=== PATIENT | male | born 1955 | race Caucasian/White ===

== ENCOUNTER → 2018-10-11 | Outpatient (CLI) | payer BC ==
[~2018-10-11] MED LIST: ASA-CA CARB-MA325 MG PO; CIPRO500 MG PO; COREG CR10 MG PO; CRESTOR20 MG PO; DARVOCET-N 1001 EAC1 PO; ECOTRIN81 MG PO; GABAPENTIN300 MG PO; NIASPAN1000 MG PO; PLAVIX; RAMIPRIL5 MG PO; TYLENOL #4 PO; Z.0.HYDROCHLOROTHIA2 PO; Z.0.PLAVIX75 MG PO; Z.0.SIMVASTATIN20 MG PO; Z.0.SIMVASTATIN5 MG; Z.0.TOPROL XL25 MG PO; [UNRECOGNIZED DRUG - OTHER]; [UNRECOGNIZED DRUG - OTHER] PO
--- NOTE | 2018-10-11 10:52 | Diagnostic Imaging Report ---
MRI SPINE CERVICAL WO HISTORY: Neck, bilateral shoulder, posterior right arm pain COMPARISON: None. TECHNIQUE: Sagittal T1, sagittal T2, sagittal inversion recovery, axial T2, axial T2 GRE, and axial T1 weighted MR images of the cervical spine were obtained without intravenous contrast. DISCUSSION: Alignment: Normal lordosis. No scoliosis. Vertebrae: No definite evidence for fractures, infection, or neoplasm. Cervicomedullary junction: No abnormalities. Spinal cord: The ventral cord is mildly flattened by disc at C5-C6 and C6-C7. The cord is otherwise normal in signal and morphology from the foramen magnum through T2-T3. Soft tissues: No signal abnormalities. Mild to moderate multilevel disc degeneration is most prominent at C5-C6 and C6-C7. This is superimposed on a congenitally narrow cervical spinal canal. Mild atlantoaxial arthrosis is present as well. C2-C3: Patent canal and foramina. C3-C4: Mild canal stenosis due to posterior disc osteophyte complex and ligamentum flavum thickening. Mild right and moderate left foraminal stenoses due to uncovertebral and facet arthrosis. C4-C5: Mild canal stenosis due to posterior disc osteophyte complex and ligamentum flavum thickening. Moderate to severe right and mild left foraminal stenoses due to uncovertebral and facet arthrosis. C5-C6: Moderate canal stenosis due to posterior disc osteophyte complex and ligamentum flavum thickening. Moderate to severe bilateral foraminal stenoses due to uncovertebral and facet arthrosis. C6-C7: Mild canal stenosis due to posterior disc osteophyte complex and ligamentum flavum thickening. Mild right and moderate left foraminal stenoses due to uncovertebral and facet arthrosis. C7-T1: Patent canal and foramina. IMPRESSION: 1. Mild to moderate multilevel disc degeneration, most prominent at C5-C6 and C6-C7, superimposed on a congenitally narrow cervical spinal canal. 2. Multilevel congenital/degenerative canal stenoses - moderate at C5-C6. 3. Multilevel degenerative foraminal stenoses - moderate on the left at C3-C4; moderate to severe on the right at C4-C5; moderate to severe bilaterally at C5-C6; moderate on the left at C6-C7. Signed by: Dr. Lucien Roblero M.D. on 10/11/2018 10:48 AM
== END ==
LOC: MRI 09:29
PROVIDERS: ATTEND Family Medicine
DX: M50.00 Cervical disc disorder with myelopathy, unspecified cervical region (principal)
CPT/HCPCS: 72141

== ENCOUNTER 2018-11-02 08:23 | Observation (INO) | payer BC ==
[2018-10-31 13:35] LABS: BASOPHILS % 1.1 % (0.0-1.0); EOSINOPHILS # (AUTO) 0.1 (0.0-0.4); EOSINOPHILS % 2.8 % (0.0-6.0); HEMOGLOBIN 13.3 g/dL (14.0-18.0); LYMPHOCYTES # (AUTO) 1.3 (1.0-3.2); LYMPHOCYTES % 36.6 % (18.0-39.1); MEAN CORPUSCULAR HEMOGLOBIN 28.6 pg (28-32); MEAN CORPUSCULAR HGB CONC 33.3 g/dL (31-35); MONOCYTES # (AUTO) 0.3 (0.2-0.8); MONOCYTES % 8.5 % (4.4-11.3); NEUTROPHILS # (AUTO) 1.8 (2.1-6.9); NEUTROPHILS % 50.4 % (38.7-80.0); PLATELET COUNT 147 x10e3/uL (140-360); RED BLOOD COUNT 4.65 x10e6/uL (4.3-5.7); RED CELL DISTRIBUTION WIDTH 12.3 % (11.7-14.4)
[2018-10-31 13:52] LABS: ANION GAP 9.5 mmol/L (8-16); BLOOD UREA NITROGEN 22 mg/dL (7-26); BUN/CREATININE RATIO 24 (6-25); CALCIUM 9.6 mg/dL (8.4-10.2); CARBON DIOXIDE 28 mmol/L (22-29); CHLORIDE 101 mmol/L (98-107); CREATININE, SERUM 0.93 mg/dL (0.72-1.25); EST GLOMERULAR FILTRATION RATE > 60 ML/MIN (60-); GLUCOSE 152 mg/dL (74-118); POTASSIUM 3.5 mmol/L (3.5-5.1); SODIUM 135 mmol/L (136-145)
[2018-10-31 14:01] LABS: INR 0.88; PROTHROMBIN TIME 12.4 seconds (11.9-14.5)
--- NOTE | 2018-10-31 14:37 | Diagnostic Imaging Report ---
EXAMINATION: PA and lateral views of the chest. COMPARISON: None CLINICAL HISTORY: Preoperative evaluation, spine surgery DISCUSSION: Lines/tubes: None. Lungs: The lungs are well inflated and clear. No pneumonia or pulmonary edema. Pleura: No pleural effusion or pneumothorax. Heart and mediastinum: The cardiomediastinal silhouette is normal. Bones and soft tissues: No acute bony abnormalities. IMPRESSION: No acute cardiopulmonary abnormalities. Signed by: Dr. Guru Alvarado M.D. on 10/31/2018 2:34 PM
[~2018-11-02] VITALS: Ht 182.9 cm; Wt 127.9 kg
[~2018-11-02 08:23] MED LIST changes: +HYDROCHLOROTHIA25 MG PO; +PLAVIX75 MG PO; +TERAZOSIN HCL5 MG PO
--- OUTSIDE RECORDS SUMMARY | 2018-11-02 08:25 | XMS REPORT | Summary of Care ---
Author Author [facility] Orth[facility] Orthopedic Surgery [facility] Address [address], [address] [place] [address] Phone Care Team Providers Care Order Builder Loader Name Role Phone RITA TIRADO DO Unavailable Unavailable Unavailable Unavailable Functional Status Name Dates Details Functional status health issues are not documented Status: Name Dates Details Cognitive status health issues are not documented Status: Problems Name Dates Details Pain of left hip joint (719.45, M25.552) Status: Active Femoral acetabular impingement (719.85, M25.859) Status: Active Medications Name Dates Details Medications not documented Allergies and Adverse Reactions Name Dates Details No Known Drug Allergies (Allergy) Status: Active Past Medical History Name Dates Details History of arthritis (V13.4, Z87.39) Status: Resolved History of back pain (V13.59, Z87.39) Status: Resolved History of heart disease (V12.50, Z86.79) Status: Resolved History of hypertension (V12.59, Z86.79) Status: Resolved History of kidney stones (V13.01, Z87.442) Status: Resolved Procedures Procedure Dates Details Procedures not documented Immunization Name Dates Details Immunizations not documented Social History Name Dates Details Unknown if ever smoked Vital Signs Date Test Result Details No Known Vitals to report Results Date Description Value Details Results not documented Plan of Care Name Dates Details Planned Observations Planned Goals not documented Planned Encounters Appointment; SANTY ARGUELLES M.D. On: 02-Sep-2017 7:30 Instructions Name Dates Details Instructions not documented Encounters Appointment; DESHAUN PALMA M.D. Encounter Diagnosis: Problem not documented On: 23-Jun-2017 15:00 Appointment; SANTY ARGUELLES M.D. Encounter Diagnosis: Problem not documented On: 06-Jul-2017 8:15 Appointment; LINETTE KELLY M.D. Encounter Diagnosis: Problem not documented On: 06-Jul-2017 9:45
--- OUTSIDE RECORDS SUMMARY | 2018-11-02 08:25 | XMS REPORT ---
Author Author [facility] Address Unknown Phone Unavailable Care Team Providers Care Electrocardiograph Repairer Name Role Phone RICH SANDERS Unavailable Unavailable RITA TIRADO Unavailable Unavailable Problems This patient has no known problems. Allergies, Adverse Reactions, Alerts This patient has no known allergies or adverse reactions. Medications This patient has no known medications. Results Test Description Test Time Test Comments Text Results Atomic Results Result Comments CHEST 2 VIEWS 2018-10-31 14:33:00 [place] [address] Patient Name: CARLOS ARAUJO MR #: [id number] : 1955 Age/Sex: 62/M Req #: [id number] Adm Physician: Ordered by: RICH SANDERS MD Report #: [id number] Location: OR Room/Bed: Procedure: [id number] DX/CHEST 2 VIEWS Exam Date: Exam Time: REPORT STATUS: Signed EXAMINATION: PA and lateral views of the chest. COMPARISON: None CLINICAL HISTORY: Preoperative evaluation, spine surgery DISCUSSION: Lines/tubes: None. Lungs: The lungs are well inflated and clear. No pneumonia or pulmonary edema. Pleura: No pleural effusion or pneumothorax. Heart and mediastinum: The cardiomediastinal silhouette is normal. Bones and soft tissues: No acute bony abnormalities. IMPRESSION: No acute cardiopulmonary abnormalities. Signed by: Dr. Sri Sawyer M.D. on 10/31/2018 2:34 PM Dictated By: SRI SAWYER MD 143 Transcribed By: CALE on 10/31/181433 COPY TO: RICH SANDERS MD MRI SPINE CERVICAL WO 2018-10-11 10:39:00 [place] [address] Patient Name: CARLOS ARAUJO JR MR #: [id number] : 1955 Age/Sex: 62/M Req #: [id number] Adm Physician: Ordered by: RITA TIRADO DO Report #: [id number] Location: MRI Room/Bed: Procedure: [id number] MRI/MRI SPINE CERVICAL WO Exam Date: Exam Time: REPORT STATUS: Signed MRI SPINE CERVICAL WO HISTORY: Neck, bilateral shoulder, po sterior right arm pain COMPARISON: None. TECHNIQUE: Sagittal T1, sagittal T2, sagittal inversion recovery, axial T2, axial T2 GRE, and axial T1 weighted MR images of the cervical spine were obtained without intravenous contrast. DISCUSSION: Alignment: Normal lordosis. No scoliosis. Vertebrae: No definite evidence for fractures, infection, or neoplasm. Cervicomedullary junction: No abnormalities. Spinal cord: The ventral cord is mildly flattened by disc at C5-C6 and C6-C7. The cord is otherwise normal in signal and morphology from the foramen magnum through T2-T3. Soft tissues: No signal abnormalities. Mild to moderate multilevel disc degeneration is most prominent at C5-C6 and C6-C7. This is superimposed on a congenitally narrow cervical spinal canal. Mild atlantoaxial arthrosis is present as well. C2-C3: Patent canal and foramina. C3-C4: Mild canal stenosis due to posterior disc osteophyte complex and ligamentum flavum thickening. Mild right and moderate left foraminal stenoses due to uncovertebral and facet arthrosis. C4-C5: Mild canal stenosis due to posterior disc osteophyte complex and ligamentum flavum thickening. Moderate to severe right and mild left foraminal stenoses due to uncovertebral and facet arthrosis. C5-C6: Moderate canal stenosis due to posterior disc osteophyte complex and ligamentum flavum thick ening. Moderate to severe bilateral foraminal stenoses due to uncovertebral and facet arthrosis. C6-C7: Mild canal stenosis due to posterior disc osteophyte complex and ligamentum flavum thickening. Mild right and moderate left foraminal stenoses due to uncovertebral and facet arthrosis. C7-T1: Patent canal and foramina. IMPRESSION: 1. Mild to moderate multilevel disc degeneration, most prominent at C5-C6 and C6-C7, superimposed on a congenitally narrow cervical spinal canal. 2. Multilevel congenital/degenerative canal stenoses - moderate at C5-C6. 3. Multilevel degenerative foraminal stenoses - moderate on the left at C3-C4; moderate to severe on the right at C4-C5; moderate to severe bilaterally at C5-C6; moderate on the left at C6-C7. Signed by: Dr. Lucien Roblero M.D. on 10/11/2018 10:48 AM Dictated By: LUCIEN ROBLERO MD 1048 Transcribed By: CALE on 10/11/18 1048 COPY TO: RITA TIRADO DO RENAL RETROPERITONEAL COMP [place] [address] Patient Name: CARLOS ARAUJO MR #: [id number] : 1955 Age/Sex: 61/M Req #: [id number] Adm Physician: Ordered by: RITA TIRADO DO Report #: [id number] Location: MRI Room/Bed: Procedure: [id number] US/US RENAL RETROPERITONEAL COMP Exam Date: 05/19/17 Exam Time: 1709 REPORT STATUS: Signed Renal ultrasound dated 05/19/2017. History: Hematuria with flank pain Discussion: Transverse and longitudinal images of the kidneys were obtained demonstrating normal renal sizes and echogenicities. There is no evidence of hydronephrosis, mass, or renal calculus. The right kidney measures 12.6 cm and the left kidney measures 13.7 cm in length. Left lower pole hyperechoic stone measuring 8 mm. The urinary bladder is unremarkable. There is no evidence of free fluid. Prostate measures 4.4 x 3.6 x 3.8 cm. IMPRESSION: Left lower pole renal stone. Enlargement of the prostate. Signed by: Dr. Jus Negron DO on 05/19/2017 7:39 PM Dictated By: JUS NEGRON DO 38 Transcribed By: CALE on 05/19/171938 COPY TO: RITA SANCHES DO MRI HIP LEFT WO [place] [address] Patient Name: CARLOS ARAUJO MR #: [id number] : 1955 Age/Sex: 61/M Req #: [id number] Adm Physician: Ordered by: RITA TIRADO DO Report #: [id number] Location: MRI Room/Bed: Procedure: [id number] MRI/MRI HIP LEFT WO Exam Date: 05/19/17 Exam Time: 1530 REPORT STATUS: Signed TECHNIQUE: Magnetic resonance imaging of the LEFT HIP was performed WITHOUT injected contrast. HISTORY: Sprain, pain, query bursitis COMPARISON: None available. FINDINGS: Bone: The bone marrow signal is heterogeneous, compatible with red marrow conversion, no specific evidence of a focal bone marrow replacing abnormality. No osteonecrosis or acute fracture. Subcortical cystic changes of the acetabular rim adjacent to the labral tearing. Femoroacetabular Joint: Acetabular labrum: Complex degenerative tearing of the superior labrum. Articular Cartilage: Low-grade erosion of the weightbearing cartilage. Muscle and tendons: Minimal gluteus medius and minimus enthesopathy; however, on the large [id number] images this is a fairly symmetric finding. Soft tissues: Enlargement of the prostate, 5.2 cm (ML) IMPRESSION: 1. Degenerative changes of the left hip, most notably degenerative tearing of the acetabular labrum. 2. Minimal symmetric gluteus medius and minimus enthesopathy, without associated greater trochanteric bursitis. Signed by: Dr. Betsy Dominguez M.D. on 05/19/2017 5:12 PM Dictated By: BETSY DOMINGUEZ DO 11 Transcribed By: CALE on 05/19/171711 COPY TO: RITA TIRADO DO
[2018-11-02] MEDS ORDERED: BACITRACIN 50,000 UNIT VIAL ONE ×2 (08:37→11:02)
[2018-11-02] MEDS ORDERED: GELATIN SPONGE 12-7MM ONE ×2 (08:37→11:02)
[2018-11-02] MEDS ORDERED: THROMBIN FOR SOLN 5,000 UNIT VIAL ONE ×2 (08:37→11:01)
[2018-11-02] MEDS ORDERED: BUPIVACAINE 0.5%/EPI 30 ML SDV INJ ONE ×2 (08:37→11:01)
[2018-11-02] MEDS ORDERED: CEFAZOLIN SOD 2 GM/D5W 50ML 50 ML IV ONE (09:46)
[2018-11-02] MEDS ORDERED: MAGNESIUM/ALUMINUM/SIMETHICONE 30 ML UDC PO PRN (13:15)
[2018-11-02] MEDS ORDERED: MORPHINE SULFATE 5 MG/ML VIAL IM PRN (13:15)
[2018-11-02] MEDS ORDERED: HYDROMORPHONE 2MG/ML 2 MG/ML ML IV PRN (13:15)
[2018-11-02] MEDS ORDERED: ACETAMINOPHEN 325 MG TAB PO PRN (13:15)
[2018-11-02] MEDS ORDERED: PROMETHAZINE HCL (IM) 25 MG/ML VIAL IM PRN (13:15)
[2018-11-02] MEDS ORDERED: ONDANSETRON HCL INJ 2MG/ML 2ML 2 MG/ML VIAL IV PRN (13:15)
[2018-11-02] MEDS: LACTATED RINGER'S 1,000 ML IV SCH ×2 (15:15→21:11)
[2018-11-02] MEDS: OXYCODONE/ACETAMINOPHEN 5-325 1 EACH TABLET PO PRN ×2 (15:21→20:30)
[2018-11-02] MEDS: CARISOPRODOL 350 MG TAB PO PRN ×2 (15:21→20:30)
[2018-11-02 15:25] VITALS: BP 139/68
[2018-11-02 15:29] VITALS: BP 139/68
[2018-11-02 15:59] VITALS: BP 139/68
[2018-11-02] MEDS: RAMIPRIL 5 MG CAP PO SCH (16:37)
[2018-11-02] MEDS: CARVEDILOL 3.125 MG TAB PO SCH (16:38)
[2018-11-02] MEDS: TERAZOSIN HCL 5 MG CAP PO SCH (16:38)
[2018-11-02] MEDS ORDERED: CARVEDILOL 10 MG CAPCR PO SCH (17:00)
[2018-11-02] MEDS ORDERED: PROPOFOL IV EMULSION 10 MG/ML 20 ML VIAL ONE (17:36)
[2018-11-02] MEDS ORDERED: NEOSTIGMINE 5 MG/5ML SYR ONE (17:36)
[2018-11-02] MEDS ORDERED: DEXAMETHASONE SOD PHOS INJ 4 MG/ML VIAL ONE (17:36)
[2018-11-02] MEDS ORDERED: LIDOCAINE HCL 2% LOCAL INJ 5 ML SDV VIAL INJ ONE (17:36)
[2018-11-02] MEDS ORDERED: ROCURONIUM BROMIDE 10 MG/ML 5ML VIAL ONE (17:36)
[2018-11-02] MEDS ORDERED: PHENYLEPHRINE HCL 1% 10 MG/ML VIAL ONE (17:36)
[2018-11-02] MEDS ORDERED: SEVOFLURANE INHAL SOLN 250 ML PEN BTL ONE (17:36)
[2018-11-02] MEDS ORDERED: ONDANSETRON HCL INJ 2MG/ML 2ML 2 MG/ML VIAL ONE (17:36)
[2018-11-02] MEDS ORDERED: GLYCOPYRROLATE INJ 1MG/ 5 ML SYR ONE (17:36)
[2018-11-02] MEDS ORDERED: EPHEDRINE SULFATE INJ 50 MG/10 ML SYR ONE (17:36)
[2018-11-02] MEDS ORDERED: FENTANYL CITRATE/PF 100MCG/2 ML INJ ONE (18:04)
[2018-11-02] MEDS ORDERED: MIDAZOLAM HCL 2 MG/2 ML VIAL ONE (18:04)
--- NOTE | 2018-11-02 19:37 | Operative Report ---
DATE OF PROCEDURE: 11/02/2018 SURGEON: iGl Delgado MD PREOPERATIVE DIAGNOSIS: C5-6 spondylosis and femoral stenosis with radiculopathy, M50.122. POSTOPERATIVE DIAGNOSIS: C5-6 spondylosis and femoral stenosis with radiculopathy, M50.122. PROCEDURE PERFORMED: 1. C5-6 anterior cervical discectomy and microsurgical osteophyte resection and allograft fusion, 30232. 2. Preparation of MTF corticocancellous allograft, 64290. 3. C5-6 anterior cervical plating with Synthes ZPN plate, 24047. ANESTHESIA: General. INDICATIONS: The patient is a 62-year-old man who presents with C5-6 spondylosis and femoral stenosis with bilateral radicular symptoms worse on the left side. He was taken to the operating room for anterior cervical decompression and fusion. PROCEDURE IN DETAIL: After induction of general anesthesia, the patient was placed on the operating table in supine position. The right side of the neck was prepped and draped in sterile fashion. A fluoroscopic C-arm was positioned in cross-table lateral orientation. A transverse incision was created on the right side of the neck superimposed on the C5-6 disk space as determined by fluoroscopy. The platysma was divided inline with the incision. A subplatysmal dissection was carried out and avascular plane of dissection was developed medially in sternocleidomastoid muscle and was followed medial to the carotid sheath to the anterior border of the cervical spine. The deep cervical fascia was opened. The esophagus was retracted to the left. The attachments of longus colli muscles to the anterolateral aspects of vertebral bodies of C5 and C6 were divided. The anterior longitudinal ligament was resected. Lamona posts were inserted into C5 and C6. The Lamona distractor was used to distract disk space. The anterior annulus of the disk was incised with #11 blade and the contents of disk were thoroughly evacuated with angled curettes and pituitary rongeurs. The posterior osteophytes were meticulously drilled with a 2 mm cutting amanda on a high speed drill until they were completely removed. The posterior annulus of the disk, herniated disk material, and the posterior longitudinal ligament were resected [id number] until the dura was fully exposed and decompressed and medial aspects of the uncinate processes were resected bilaterally to further expose any compressed origins of the corresponding nerve roots with particular attention given on the left side. After satisfactory decompression had been achieved, the endplates were prepared for fusion. A piece of MTF corticocancellous allograft measuring 8 mm in thickness was selected and loaded on the corresponding Synthes ZPN plate. The contrast was inserted into the C5-6 disk space under distraction and fluoroscopic guidance and tamped in place until the anterior margin of the plate was flushed with anterior margin of vertebral bodies. The plate was then screwed to the end plate of C5 and C6 with 2 pairs of 16 mm screws. All screws were locked. An excellent construct was obtained. The wound was copiously irrigated with bacitracin solution. Meticulous hemostasis was secured. The traction was removed. The platysma was closed with 3-0 Vicryl sutures. The skin was closed with 4-0 Monocryl sutures in subcuticular fashion. Steri-strips and dressing were applied. The patient was awakened, extubated, and taken to Postanesthesia Care Unit in stable condition. No intraoperative complications were encountered. ESTIMATED BLOOD LOSS: 10 cc. Gil Delgado MD PP/ROWAN /[id number]
[2018-11-02] MEDS: CEFAZOLIN SOD 1 GM/NS 50ML 50 ML IV SCH (20:06)
[2018-11-02 20:09] VITALS: BP 149/70
[2018-11-02] MEDS ORDERED: NON-FORMULARY MEDICATION (Rosuvastatin Calcium (Crestor) 40 MG) PO SCH (21:00)
[2018-11-02] MEDS ORDERED: ZOLPIDEM TARTRATE 5 MG TAB PO PRN (21:00)
[2018-11-02] MEDS ORDERED: CRESTOR 10MG PO SCH (21:00)
[2018-11-03 00:34] VITALS: BP 109/55
[2018-11-03] MEDS: OXYCODONE/ACETAMINOPHEN 5-325 1 EACH TABLET PO PRN ×3 (01:25→12:40)
[2018-11-03] MEDS: CARISOPRODOL 350 MG TAB PO PRN ×3 (01:25→12:40)
[2018-11-03 04:00] VITALS: BP 121/57
[2018-11-03] MEDS: CEFAZOLIN SOD 1 GM/NS 50ML 50 ML IV SCH ×2 (04:20→11:27)
[2018-11-03] MEDS: LACTATED RINGER'S 1,000 ML IV SCH (05:35)
--- NOTE | 2018-11-03 08:11 | Diagnostic Imaging Report ---
Cervical spine radiographs-2 views Indication: Status post cervical fusion. Comparison: MRI cervical spine 10/11/2018. Findings: Cervical vertebral bodies can be visualized to the upper aspect of C7. The C7 vertebral body is partially obscured by the overlying shoulder. The patient is status post anterior fusion of C5 and C6 with a plate and bilateral screw construct as well as an intervertebral spacer. No evidence of acute fracture or bony malalignment. Mild prevertebral soft tissue edema and air likely reflects recent postoperative state. Mild degenerative disc and facet degenerative changes. Partially seen upper thoracic midline sternal wires and adjacent left-sided clips. IMPRESSION: Postoperative changes status post anterior fusion of C5-C6 as described above. Signed by: Dr. Darya Brizuela MD on 11/03/2018 8:08 AM
[2018-11-03 08:15] VITALS: BP 125/63
[2018-11-03] MEDS: RAMIPRIL 5 MG CAP PO SCH (09:00)
[2018-11-03] MEDS ORDERED: HYDROCHLOROTHIAZIDE 25 MG TAB PO SCH (09:00)
[2018-11-03] MEDS: TERAZOSIN HCL 5 MG CAP PO SCH (09:00)
[2018-11-03] MEDS: CARVEDILOL 3.125 MG TAB PO SCH (09:00)
[2018-11-03 09:22] VITALS: BP 125/63
[2018-11-03 12:37] VITALS: BP 146/67
== END 2018-11-03 13:07 | disposition home or self-care (01) ==
LOC: OR 08:23 → PACU V 13:09 → MED/SURG 14:09
PROVIDERS: ADMIT Neurological Surgery; ATTEND Neurological Surgery
DX: M50.122 Cervical disc disorder at C5-C6 level with radiculopathy (principal); I25.10 Atherosclerotic heart disease of native coronary artery without angina pectoris; I10 Essential (primary) hypertension; E78.5 Hyperlipidemia, unspecified; Z95.1 Presence of aortocoronary bypass graft
CPT/HCPCS: 20931; 22551; 22845; 36415; 71046; 72040; 77003; 80048; 85025; 85610; 85730; 86850; 86900; 88304; 88311; 93005; G0378 ×2; J0690 ×3; J1100; J2001; J2250; J2370; J2405; J2704; J3490; J7121

== ENCOUNTER 2019-04-24 13:59 | Inpatient (IN) | payer BC ==
[~2019-04-24] VITALS: Ht 182.9 cm; Wt 124.8 kg
[2019-04-24 15:35] LABS: BASOPHILS % 0.3 % (0.0-1.0); HEMATOCRIT 35.2 % (38.2-49.6); HEMOGLOBIN 12.3 g/dL (14.0-18.0); LYMPHOCYTES # (AUTO) 0.6 (1.0-3.2); LYMPHOCYTES % 8.7 % (18.0-39.1); MEAN CORPUSCULAR HEMOGLOBIN 29.1 pg (28-32); MEAN CORPUSCULAR HGB CONC 34.9 g/dL (31-35); MEAN CORPUSCULAR VOLUME 83.2 fL (81-99); MONOCYTES # (AUTO) 0.7 (0.2-0.8); MONOCYTES % 10.3 % (4.4-11.3); NEUTROPHILS # (AUTO) 5.7 (2.1-6.9); NEUTROPHILS % 80.3 % (38.7-80.0); PLATELET COUNT 173 x10e3/uL (140-360); RED BLOOD COUNT 4.23 x10e6/uL (4.3-5.7); RED CELL DISTRIBUTION WIDTH 12.9 % (11.7-14.4)
[2019-04-24 15:48] LABS: INR 0.96; PROTHROMBIN TIME 13.3 seconds (11.9-14.5)
[2019-04-24 15:58] LABS: ALANINE AMINOTRANSFERASE 23 IU/L (0-55); ALBUMIN 3.3 g/dL (3.5-5.0); ALBUMIN/GLOBULIN RATIO 0.8 (0.8-2.0); ALKALINE PHOSPHATASE 124 IU/L (40-150); ANION GAP 15.7 mmol/L (8-16); BLOOD UREA NITROGEN 24 mg/dL (7-26); BUN/CREATININE RATIO 18 (6-25); CALCIUM 10.2 mg/dL (8.4-10.2); CARBON DIOXIDE 26 mmol/L (22-29); CHLORIDE 95 mmol/L (98-107); CREATINE KINASE 190 IU/L (30-200); CREATININE, SERUM 1.31 mg/dL (0.72-1.25); EST GLOMERULAR FILTRATION RATE 55 ML/MIN (60-); GLUCOSE 135 mg/dL (74-118); SODIUM 134 mmol/L (136-145)
--- OUTSIDE RECORDS SUMMARY | 2019-04-24 16:04 | XMS REPORT | Summary of Care ---
Author Author [facility] Organization [facility] Address Unknown Phone Unavailable Encounter HANK Avitia([place]) [id number] Date(s): 03/06/19 - 03/07/19 [facility] [address] [place] [phone] Discharge Disposition: Home or Self Care Attending Physician: Saleem Kohler MD Admitting Physician: Saleem Kohler MD Referring Physician: Saleem Kohler MD Vital Signs 1 2 3 Most recent to oldest [Reference Range]: 182.88 cm (03/06/19 11:14 AM) Height 98.6 DegF (03/07/19 10:40 AM) 98.4 DegF (03/07/19 7:40 AM) 98.0 DegF (03/07/19 3:40 AM) Temperature Oral [96.4-99.1 DegF] 130/63 mmHg (03/07/19 10:40 AM) 143/86 mmHg *HI* (03/07/19 7:40 AM) 111/64 mmHg (03/07/19 3:40 AM) Blood Pressure [90-140/60-90 mmHg] 17 BRMIN (03/07/19 10:40 AM) 17 BRMIN (03/07/19 7:40 AM) 16 BRMIN (03/07/19 3:40 AM) Respiratory Rate [14-20 BRMIN] 69 bpm (03/07/19 10:40 AM) 62 bpm (03/07/19 7:40 AM) 61 bpm (03/07/19 3:40 AM) Peripheral Pulse Rate [60-100 bpm] 128.4 kg (03/06/19 11:14 AM) Weight 38.39 m2 (03/06/19 11:14 AM) Body Mass Index Problem List Condition Effective Dates Status Health Status Informant Hyperlipidemia(Confi Active rmed) Hypertension(Confirm Active ed) Myocardial 2011 Active infarction(Confirmed ) Obstructive sleep Active apnea on CPAP(Confirmed) Osteoarthritis(Confi Active rmed) Allergies, Adverse Reactions, Alerts No Known Allergies Medications acetaminophen 1,000 mg, 2 tab, Route: PO, Drug form: TAB, TID, Dosing Weight 128.4, kg, Start date: 03/06/19 17:00:00 CDT, Duration: 30 day, Stop date: 04/05/19 13:00:00 CDT, 0 Notes: Max acetaminophen 4000 mg/day (4 gm/day). (Same as: Tylenol Extra Streng ) Start Date: 03/06/19 Stop Date: 03/07/19 Status: Discontinued acetaminophen 1,000 mg, 2 tab, Route: PO, Drug form: TAB, ONCE, Dosing Weight 128.4, kg, Pre-o perative., Start date: 03/06/19 11:29:00 CDT, Stop date: 03/06/19 11:29:00 CDT, 0 Notes: Max acetaminophen 4000 mg/day (4 gm/day). (Same as: Tylenol Extra Stre) Start Date: 03/06/19 Stop Date: 03/06/19 Status: Completed acetaminophen 500 mg oral tablet 1,000 mg=2 tab, PO, TID, PRN Pain, X 15 day, # 90 tab, 1 Refill(s) Start Date: 03/07/19 Stop Date: 04/06/19 Status: Ordered ANES acetaminophen 1,000 mg, 2 tab, Route: PO, Drug form: TAB, ONCE, Dosing Weight 128.4, kg, PRN P ain Score 1-3, Start date: 03/06/19 14:53:00 CDT, 0 Notes: Max acetaminophen 4000 mg/day (4 gm/day). (Same as: Tylenol Extra Streng ) Start Date: 03/06/19 Stop Date: 03/06/19 Status: Discontinued ANES flumazenil 0.2 mg, 2 mL, Route: IVP, Drug form: INJ, PRN, Dosing Weight 128.4, kg, PRN Jarret odiazepine Reversal, Initial dose, Start date: 03/06/19 14:53:00 CDT, Duration: 30 day, Stop date: 04/05/19 14:52:00 CDT, 0 Notes: (Same as: Romazicon) Start Date: 03/06/19 Stop Date: 03/07/19 Status: Discontinued ANES hydrALAZINE 10 mg, 0.5 mL, Route: IVP, Drug form: INJ, Q20Min, Dosing Weight 128.4, kg, PRN Elevated BP, Start date: 03/06/19 14:53:00 CDT, Duration: 2 doses or times, Stop date: Limited # of times, 0 Notes: (Same as: Apresoline)Push over 5 minutes Start Date: 03/06/19 Stop Date: 03/07/19 Status: Discontinued ANES HYDROmorphone 0.5 mg, 0.25 mL, Route: IVP, Drug form: INJ, Q5Min, Dosing Weight 128.4, kg, PRN Pain Score 7-10, Start date: 03/06/19 14:53:00 CDT, Duration: 4 doses or times, Stop date: Limited # of times, 0 Notes: Same as Dilaudid Start Date: 03/06/19 Stop Date: 03/06/19 Status: Discontinued ANES labetalol 10 mg, 2 mL, Route: IVP, Drug form: INJ, Q5Min, Dosing Weight 128.4, kg, PRN Mindy vated BP, Start date: 03/06/19 14:53:00 CDT, Duration: 5 doses or times, Stop da te: Limited # of times, 0 Start Date: 03/06/19 Stop Date: 03/07/19 Status: Discontinued ANES meperidine 12.5 mg, 0.25 mL, Route: IVP, Drug form: INJ, Q30Min, Dosing Weight 128.4, kg, P RN Other -See Comment, For shivering, Start date: 03/06/19 14:53:00 CDT, Duratio n: 2 doses or times, Stop date: Limited # of times, 0 Notes: (Same as: Demerol) "Use Precaution in Elderly, Seizure disorders, and Re nal impairment" Start Date: 03/06/19 Stop Date: 03/07/19 Status: Discontinued ANES morphine Sulfate 2 mg, 0.2 mL, Route: IVP, Drug form: INJ, Q5Min, Dosing Weight 128.4, kg, PRN Pa in Score 4-6, Start date: 03/06/19 14:53:00 CDT, Duration: 5 doses or times, Sto p date: Limited # of times, 0 Notes: (Same as:MORPhine Sulfate) Start Date: 03/06/19 Stop Date: 03/06/19 Status: Discontinued ANES naloxone 0.4 mg, 1 mL, Route: IVP, Drug form: INJ, Q2MIN, Dosing Weight 128.4, kg, PRN Na rcotic Reversal, Start date: 03/06/19 14:53:00 CDT, Duration: 8 doses or times, Stop date: Limited # of times, 0 Notes: Same as Narcan Start Date: 03/06/19 Stop Date: 03/07/19 Status: Discontinued ANES ondansetron 4 mg, 2 mL, Route: IVP, Drug form: INJ, ONCE, Dosing Weight 128.4, kg, PRN Nause a & Vomiting, Start date: 03/06/19 14:53:00 CDT, 0 Notes: (Same as: Zofran) MEDICATION WASTE Product Size: 4 mgProduct Was manny: ___ mg Start Date: 03/06/19 Stop Date: 03/07/19 Status: Discontinued ANES promethazine + Sodium Chloride 0.9% IV 50 mL 6.25 mg, 0.25 mL, Route: IVPB, Drug form: INJ, ONCE, Dosing Weight 128.4, kg, MS N Nausea & Vomiting, Start date: 03/06/19 14:53:00 CDT, 0 Notes: Do not give IV push. (Same as: Phenergan) Start Date: 03/06/19 Stop Date: 03/07/19 Status: Discontinued carvedilol 6.25 mg, 1 tab, Route: PO, Drug form: TAB, BID, Dosing Weight 128.4, kg, Start d ate: 03/06/19 17:00:00 CDT, Duration: 30 day, Stop date: 04/05/19 9:00:00 CDT, 0 Notes: Give with food. (Same As: Coreg) Start Date: 03/06/19 Stop Date: 03/07/19 Status: Discontinued cefadroxil 500 mg oral capsule 500 mg=1 cap, PO, Q12H, X 10 day, # 20 cap, 0 Refill(s) Start Date: 03/07/19 Stop Date: 03/17/19 Status: Ordered ceFAZolin 3 gm, Route: IVP, Drug form: PDR/INJ, ONCALL, Dosing Weight 126.818, kg, (Patien ts weighing >/=120 kg), Start date: 03/06/19 12:00:00 CDT, Duration: 1 doses or times, ABX Indication: Surgical Prophylaxis, 0 Notes: (Same As: Delmy Childs) MEDICATION WASTE Product Size: 1000 mgP roduct Wasted: ___ mg Start Date: 03/06/19 Stop Date: 03/06/19 Status: Discontinued ceFAZolin 2 gm, 50 mL, Route: IVPB, Drug form: INJ, PRE OP, Start date: 03/06/19 12:00:00 CDT, Stop date: 03/06/19 17:00:00 CDT, ABX Indication: Surgical Prophylaxis, 0 Start Date: 03/06/19 Stop Date: 03/06/19 Status: Discontinued ceFAZolin (ANES) Route: IV, Drug form: INJ, ONCE, Stop date: 03/06/19 14:10:00 CDT Start Date: 03/06/19 Stop Date: 03/06/19 Status: Completed ceFAZolin (SCIP) 2 gm, 100 mL, Route: IVPB, Drug form: INJ, Q6H, Dosing Weight 128.4, kg, Start d ate: 03/06/19 20:00:00 CDT, Duration: 3 doses or times, Stop date: 03/07/19 8:00 :00 CDT, ABX Indication: Surgical Prophylaxis, 0 Notes: Same as: Ancef Start Date: 03/06/19 Stop Date: 03/07/19 Status: Completed ceFAZolin + Sodium Chloride 0.9% IV 100 mL 1 gm, Route: IVPB, Drug form: PDR/INJ, PRE OP, Start date: 03/06/19 12:00:00 CDT , Stop date: 03/06/19 17:00:00 CDT, ABX Indication: Surgical Prophylaxis, 0 Notes: (Same As: Delmy Childs) MEDICATION WASTE Product Size: 1000 mgP roduct Wasted: ___ mg Start Date: 03/06/19 Stop Date: 03/06/19 Status: Discontinued CeleBREX 200 mg, 1 cap, Route: PO, Drug form: CAP, BID, Dosing Weight 128.4, kg, Start da te: 03/06/19 17:00:00 CDT, Duration: 30 day, Stop date: 04/05/19 9:00:00 CDT, 0 Notes: NSAID. Please check indication. Not for seizure. (Same As: CeleBREX) Start Date: 03/06/19 Stop Date: 03/07/19 Status: Discontinued CeleBREX 200 mg oral capsule 200 mg=1 cap, PO, BID, # 60 cap, 1 Refill(s) Start Date: 03/07/19 Stop Date: 05/06/19 Status: Ordered celecoxib 200 mg, 1 cap, Route: PO, Drug form: CAP, ONCE, Dosing Weight 128.4, kg, Start d ate: 03/06/19 11:29:00 CDT, Stop date: 03/06/19 11:29:00 CDT, 0 Notes: NSAID. Please check indication. Not for seizure. (Same As: CeleBREX) Start Date: 03/06/19 Stop Date: 03/06/19 Status: Completed Crestor 40 mg, 4 tab, Route: PO, Drug form: TAB, Bedtime, Dosing Weight 128.4, kg, Start date: 03/06/19 21:00:00 CDT, Duration: 30 day, Stop date: 04/04/19 21:00:00 CDT, 0 Notes: (Same As: Crestor) Start Date: 03/06/19 Stop Date: 03/07/19 Status: Discontinued dexamethasone 10 mg, 1 mL, Route: IVP, Drug form: SOLN, ONCE, Dosing Weight 128.4, kg, POD #1, Start date: 03/07/19 15:37:00 CDT, Stop date: 03/07/19 15:37:00 CDT, 0 Notes: dexamethasone 10 mg/1 ml VL INJ PF MEDICATION WASTE Product Size: 10 mgProduct Wasted: ___ mg Start Date: 03/07/19 Stop Date: 03/07/19 Status: Canceled dexamethasone 10 mg, 1 mL, Route: IVP, Drug form: SOLN, ONCE, Dosing Weight 128.4, kg, POD #1, Start date: 03/06/19 15:16:00 CDT, Stop date: 03/06/19 15:16:00 CDT, 0 Notes: dexamethasone 10 mg/1 ml VL INJ PF MEDICATION WASTE Product Size: 10 mgProduct Wasted: ___ mg Start Date: 03/06/19 Stop Date: 03/06/19 Status: Deleted dexamethasone (ANES) Route: IV, Drug form: INJ, ONCE, Stop date: 03/06/19 14:21:00 CDT Start Date: 03/06/19 Stop Date: 03/06/19 Status: Completed docusate-senna 50 mg-8.6 mg oral tablet 1 tab, Route: PO, Drug Form: TAB, Dosing Weight 128.4, kg, Daily, Start date: 9:00:00 CDT, Duration: 30 day, Stop date: 04/05/19 9:00:00 CDT, 0 Notes: (Same as Senokot-S) Equiv. to Sharonda-Colace. Start Date: 03/07/19 Stop Date: 03/07/19 Status: Discontinued enoxaparin 40 mg, 0.4 mL, Route: SUB-Q, Drug form: INJ, Daily, Dosing Weight 128.4, kg, Sta rt date: 03/07/19 9:00:00 CDT, Duration: 30 day, Stop date: 04/05/19 9:00:00 CDT , 0 Notes: (Same as: Lovenox) Start Date: 03/07/19 Stop Date: 03/07/19 Status: Discontinued ergocalciferol 50,000 intl units oral capsule 50,000 IntlUnit, 1 cap, Route: PO, Drug form: CAP, Q7D, Dosing Weight 128.4, kg, Start date: 03/06/19 21:00:00 CDT, Duration: 30 day, Stop date: 04/03/19 21:00: 00 CDT, 0 Notes: (Same as: Vitamin D) "Do Not Crush" Start Date: 03/06/19 Stop Date: 03/07/19 Status: Discontinued famotidine 20 mg oral tablet 20 mg, 1 tab, Route: PO, Drug form: TAB, ONCE, Dosing Weight 128.4, kg, Pre-oper ative., Start date: 03/06/19 11:29:00 CDT, Stop date: 03/06/19 11:29:00 CDT, 0 Notes: (Same as: Pepcid) Start Date: 03/06/19 Stop Date: 03/06/19 Status: Completed gabapentin 100 mg oral capsule See Instructions, Take 1 cap in the am Take 3 cap before bed, # 56 cap, 1 Refill (s) Start Date: 03/07/19 Status: Ordered ibuprofen 600 mg oral tablet 600 mg=1 tab, PO, QAM, PRN pain, # 30 tab, 0 Refill(s) Start Date: 02/14/19 Stop Date: 03/07/19 Status: Discontinued ibuprofen 800 mg oral tablet 800 mg=1 tab, PO, QPM, PRN Pain, Take with food, # 30 tab, 0 Refill(s) Start Date: 02/14/19 Stop Date: 03/07/19 Status: Discontinued Lactated Ringers (Bolus) IV 1,000 mL, 1,000 ml/hr, Infuse Over: 1 hr, Route: IV, 1,000, Drug form: INJ, ONCE , Priority: STAT, Dosing Weight 126.818 kg, Start date: 03/06/19 11:29:00 CDT, S top date: 03/06/19 11:29:00 CDT, 0 Start Date: 03/06/19 Stop Date: 03/06/19 Status: Completed Lactated Ringers Injection IV (ANES) 1000 mL Route: IV, Total Volume: 1,000, Start date: 03/06/19 12:47:00 CDT, Stop date: 13:47:00 CDT Start Date: 03/06/19 Stop Date: 03/06/19 Status: Completed Lactated Ringers IV 1,000 mL 1,000 mL, Rate: 75 ml/hr, Infuse over: 13.3 hr, Route: IV, Dosing Weight 128.4 k g, Total Volume: 1,000, Start date: 03/06/19 15:16:00 CDT, Duration: 30 day, Sto p date: 04/05/19 15:15:00 CDT, 2.58, m2, 0 Start Date: 03/06/19 Stop Date: 03/07/19 Status: Discontinued Lactated Ringers IV 1,000 mL 1,000 mL, Rate: 100 ml/hr, Infuse over: 10 hr, Route: IV, Dosing Weight 128.4 kg , Total Volume: 1,000, Start date: 03/06/19 11:29:00 CDT, Duration: 30 day, Stop date: 04/05/19 11:28:00 CDT, 2.58, m2, 0 Start Date: 03/06/19 Stop Date: 03/06/19 Status: Discontinued lidocaine (ANES) Route: IV, Drug form: INJ, ONCE, Stop date: 03/06/19 14:10:00 CDT Start Date: 03/06/19 Stop Date: 03/06/19 Status: Completed Lovenox 40 mg/0.4 mL subcutaneous solution 40 mg, SUB-Q, Daily, X 20 day, # 20 syr, 0 Refill(s) Start Date: 03/07/19 Stop Date: 03/27/19 Status: Ordered Lyrica 50 mg, 1 cap, Route: PO, Drug form: CAP, Q8H, Dosing Weight 128.4, kg, Start greyson e: 03/06/19 16:00:00 CDT, Duration: 30 day, Stop date: 04/05/19 8:00:00 CDT, 0 Notes: Same as Lyrica Start Date: 03/06/19 Stop Date: 03/07/19 Status: Discontinued melatonin 3 mg, 1 tab, Route: PO, Drug form: TAB, Bedtime, Dosing Weight 128.4, kg, PRN In somnia, Start date: 03/06/19 15:16:00 CDT, Duration: 30 day, Stop date: 04/05/19 15:15:00 CDT, 0 Notes: (Same as: Melatonin) Start Date: 03/06/19 Stop Date: 03/07/19 Status: Discontinued metoprolol (ANES) Route: IV, Drug form: INJ, ONCE, Stop date: 03/06/19 14:31:00 CDT Start Date: 03/06/19 Stop Date: 03/06/19 Status: Completed Milk of Magnesia 30 ml, Route: PO, Drug Form: SUSP, Dosing Weight 128.4, kg, Q6H, PRN as needed f or constipation, Start date: 03/06/19 15:16:00 CDT, Duration: 30 day, Stop date: 04/05/19 15:15:00 CDT, 0 Notes: (Same as: Milk of Magnesia, MOM) Start Date: 03/06/19 Stop Date: 03/07/19 Status: Discontinued morphine Sulfate 1 mg, 0.1 mL, Route: IVP, Drug form: INJ, Q3H, Dosing Weight 128.4, kg, PRN Pain Score 7-10, If not responding to oral therapy or unable to tolerate PO., Start date: 03/06/19 15:16:00 CDT, Duration: 30 day, Stop date: 04/05/19 15:15:00 CDT, 0 Notes: (Same as:MORPhine Sulfate) Start Date: 03/06/19 Stop Date: 03/07/19 Status: Discontinued niCARdipine (ANES) Route: IV, Drug form: INJ, ONCE, Stop date: 03/06/19 14:16:00 CDT Start Date: 03/06/19 Stop Date: 03/06/19 Status: Completed ondansetron 4 mg, 2 mL, Route: IV, Drug form: INJ, Q4H, Dosing Weight 128.4, kg, PRN Nausea, Start date: 03/06/19 15:16:00 CDT, Duration: 30 day, Stop date: 04/05/19 15:15: 00 CDT, 0 Notes: (Same as: Seven) MEDICATION WASTE Product Size: 4 mgProduct Was manny: ___ mg Start Date: 03/06/19 Stop Date: 03/07/19 Status: Discontinued ondansetron (ANES) Route: IV, Drug form: INJ, ONCE, Stop date: 03/06/19 15:36:00 CDT Start Date: 03/06/19 Stop Date: 03/06/19 Status: Completed oxyCODONE 5 mg oral tablet, immediate release 10 mg, 2 tab, Route: PO, Drug form: TAB, Q4H, Dosing Weight 128.4, kg, PRN Pain Score 7-10, Start date: 03/06/19 15:16:00 CDT, Duration: 30 day, Stop date: 03/09 04/26 15:15:00 CDT, 0 Notes: (Same as: Roxicodone) Start Date: 03/06/19 Stop Date: 03/07/19 Status: Discontinued oxyCODONE 5 mg oral tablet, immediate release 5 mg, 1 tab, Route: PO, Drug form: TAB, Q4H, Dosing Weight 128.4, kg, PRN Pain S core 4-6, Start date: 03/06/19 15:16:00 CDT, Duration: 30 day, Stop date: 15:15:00 CDT, 0 Notes: (Same as: Roxicodone) Start Date: 03/06/19 Stop Date: 03/07/19 Status: Discontinued oxyCODONE 5 mg oral tablet, immediate release 5 mg, 1 tab, Route: PO, Drug form: TAB, ONCE, Dosing Weight 128.4, kg, Start greyson e: 03/06/19 11:29:00 CDT, Stop date: 03/06/19 11:29:00 CDT, 0 Notes: (Same as: Roxicodone) Start Date: 03/06/19 Stop Date: 03/06/19 Status: Completed oxyCODONE 5 mg oral tablet, immediate release 5 mg=1 tab, PO, Q4H, PRN Pain, X 7 day, # 60 tab, 0 Refill(s) Start Date: 03/07/19 Stop Date: 03/14/19 Status: Ordered pantoprazole 40 mg, 1 tab, Route: PO, Drug form: ECTAB, Daily, Dosing Weight 128.4, kg, Start date: 03/07/19 9:00:00 CDT, Duration: 30 day, Stop date: 04/05/19 9:00:00 CDT, 0 Notes: Tablet should not be chewed or crushed.(Same as: Protonix) Start Date: 03/07/19 Stop Date: 03/07/19 Status: Discontinued Phenergan 12.5 mg, 1 tab, Route: PO, Drug form: TAB, ONCE, Dosing Weight 128.4, kg, Start date: 03/06/19 11:29:00 CDT, Stop date: 03/06/19 11:29:00 CDT, 0 Notes: (Same as: Phenergan) Start Date: 03/06/19 Stop Date: 03/06/19 Status: Completed polyethylene glycol 3350 17 gm, 1 pkt, Route: PO, Drug form: PWDR, Daily, Dosing Weight 128.4, kg, Hold f or loose stools., Start date: 03/07/19 9:00:00 CDT, Duration: 30 day, Stop date: 04/05/19 9:00:00 CDT, 0 Notes: Dissolve in 8 oz of water or juice.(Same as: Miralax) Start Date: 03/07/19 Stop Date: 03/07/19 Status: Discontinued polymyxin B sulfate + Sodium Chloride 0.9% IV 250 mL 125,000 unit, Route: IRRIG, ONCALL, Start date: 03/06/19 6:00:00 CDT, Duration: 1 doses or times, Stop date: 03/06/19 18:00:00 CDT, ABX Indication: Surgical Pro phylaxis, 0 Notes: (Same as: Polymyxin B Sulfate) Start Date: 03/06/19 Stop Date: 03/07/19 Status: Discontinued propofol (ANES) Route: IV, Drug form: INJ, ONCE, Stop date: 03/06/19 14:10:00 CDT Start Date: 03/06/19 Stop Date: 03/06/19 Status: Completed propofol (ANES) 10 mg Route: IV, Drug form: INJ, Start date: 03/06/19 13:19:00 CDT, Stop date: 9 14:19:00 CDT Start Date: 03/06/19 Stop Date: 03/06/19 Status: Completed ramipril 10 mg, 4 cap, Route: PO, Drug form: CAP, Daily, Dosing Weight 128.4, kg, Start d ate: 03/07/19 9:00:00 CDT, Duration: 30 day, Stop date: 04/05/19 9:00:00 CDT, 0 Notes: (Same as:Altace) Start Date: 03/07/19 Stop Date: 03/07/19 Status: Discontinued ropivacaine 100 mL, Route: InFILtration(local), Drug Form: INJ, ONCALL, Start date: 03/06/19 6:00:00 CDT, Stop date: 03/06/19 18:00:00 CDT, 0 Notes: NOT FOR IV useEach mL contains: Ropivacaine 2.46 mg, Epinephrine 0. 005 mg, Clonidine 0.0008 mg and Ketorolac 0.3 mg in Sodium Chloride Start Date: 03/06/19 Stop Date: 03/07/19 Status: Discontinued terazosin 5 mg, 1 cap, Route: PO, Drug form: CAP, BID, Dosing Weight 128.4, kg, Start date : 03/06/19 17:00:00 CDT, Duration: 30 day, Stop date: 04/05/19 9:00:00 CDT, 0 Notes: (Same As: Hytrin) Start Date: 03/06/19 Stop Date: 03/07/19 Status: Discontinued tizanidine 2 mg, 0.5 tab, Route: PO, Drug form: TAB, Q8H, Dosing Weight 128.4, kg, PRN Spas m, Start date: 03/06/19 15:16:00 CDT, Duration: 30 day, Stop date: 04/05/19 15:1 5:00 CDT, 0 Notes: (Same As: Zanaflex) Start Date: 03/06/19 Stop Date: 03/07/19 Status: Discontinued tramadol 50 mg, 1 tab, Route: PO, Drug form: TAB, Q4H, Dosing Weight 128.4, kg, PRN Pain Score 1-3, Start date: 03/06/19 15:16:00 CDT, Duration: 30 day, Stop date: 04/05 15:15:00 CDT, 0 Notes: Not to exceed 400mg/day. (Same As: Ultram) Start Date: 03/06/19 Stop Date: 03/07/19 Status: Discontinued tranexamic acid (ANES) 100 mg Route: IV, Drug form: INJ, Start date: 03/06/19 13:30:00 CDT, Stop date: 9 14:30:00 CDT Start Date: 03/06/19 Stop Date: 03/06/19 Status: Completed tranexamic acid (ANES) 100 mg Route: IV, Drug form: INJ, Start date: 03/06/19 14:59:00 CDT, Stop date: 9 15:59:00 CDT Start Date: 03/06/19 Stop Date: 03/06/19 Status: Completed vancomycin (SCIP) + Sodium Chloride 0.9% IV 500 mL 2,000 mg, Route: IVPB, ONCE, Dosing Weight 128.4, kg, Time Critical Medication, Start date: 03/07/19 0:00:00 CDT, Stop date: 03/07/19 0:00:00 CDT, Pharmacy to a djust dose for renal function, ABX Indication: Surgical Prophylaxis, 0 Notes: TIME CRITICAL MEDICATION(Same As: Vancocin)Infusion rate< 1000 mg: infuse over 1 [id number] - 1500 mg: infuse over 1.5 [id number] - 2000 mg: infuse over 2 hours> 2001 mg: infuse over 2.5 hoursFor adult patients only: Round to nearest 250 mg per Medical Staff approval MEDICATION WASTE Product Size: 1000 mgProduct Wasted: ___ mg Start Date: 03/07/19 Stop Date: 03/07/19 Status: Completed vancomycin + Sodium Chloride 0.9% IV 250 mL 500 mg, Route: IRRIG, ONCALL, Start date: 03/06/19 6:00:00 CDT, Duration: 1 dose s or times, Stop date: 03/06/19 18:00:00 CDT, ABX Indication: Surgical Prophylax is, 0 Notes: TIME CRITICAL MEDICATION(Same As: Vancocin)For adult patients only: Round to nearest 250 mg per Medical Staff approval Start Date: 03/06/19 Stop Date: 03/07/19 Status: Discontinued vancomycin + Sodium Chloride 0.9% IV 500 mL 2,000 mg, Route: IVPB, ONCALL, Dosing Weight 128.4, kg, Start date: 03/06/19 12: 00:00 CDT, Duration: 1 doses or times, Stop date: 03/06/19 15:00:00 CDT, ABX Ind ication: Surgical Prophylaxis, 0 Notes: TIME CRITICAL MEDICATION(Same As: Vancocin)Infusion rate< 1000 mg: infuse over 1 [id number] - 1500 mg: infuse over 1.5 [id number] - 2000 mg: infuse over 2 hours> 2001 mg: infuse over 2.5 hoursFor adult patients only: Round to nearest 250 mg per Medical Staff approval MEDICATION WASTE Product Size: 1000 mgProduct Wasted: ___ mg Start Date: 03/06/19 Stop Date: 03/06/19 Status: Completed Results Most recent to 1 2 oldest [Reference Range]: Neutrophils # 8.0 K/CMM 2.5 K/CMM [1.5-8.1 K/CMM] (03/07/19 4:37 AM) (02/21/19 11:21 AM) Lymphocytes # 1.0 K/CMM 1.5 K/CMM [1.0-5.5 K/CMM] (03/07/19 4:37 AM) (02/21/19 11:21 AM) Monocytes # [0.0-0.8 0.7 K/CMM 0.4 K/CMM K/CMM] (03/07/19 4:37 AM) (02/21/19 11:21 AM) Eosinophils # 0.1 K/CMM [0.0-0.5 K/CMM] (02/21/19 11:21 AM) eGFR 92 mL/min/1.73m2 1 88 mL/min/1.73m2 2 *NA* *NA* (03/07/19 4:37 AM) (02/21/19 11:21 AM) Albumin Lvl [3.5-5.0 3.8 g/dL g/dL] (02/21/19 11:21 AM) AGAP [10.0-20.0 11.0 mEq/L 14.6 mEq/L mEq/L] (03/07/19 4:37 AM) (02/21/19 11:21 AM) Basophils [0.0-1.0 0.1 % 0.6 % %] (03/07/19 4:37 AM) (02/21/19 11:21 AM) BUN [7-22 mg/dL] 19 mg/dL 22 mg/dL (03/07/19 4:37 AM) (02/21/19 11:21 AM) Calcium Lvl 8.5 mg/dL 9.5 mg/dL [8.5-10.5 mg/dL] (03/07/19 4:37 AM) (02/21/19:21 AM) Chloride Lvl [95-109 105 mEq/L 104 mEq/L mEq/L] (03/07/19 4:37 AM) (02/21/19:21 AM) CO2 [24-32 mEq/L] 29 mEq/L 29 mEq/L (03/07/19 4:37 AM) (02/21/19:21 AM) Creatinine Lvl 0.89 mg/dL 0.93 mg/dL [0.50-1.40 mg/dL] (03/07/19 4:37 AM) (02/21/19 11:21 AM) Eosinophils [0.0-4.0 2.0 % %] (02/21/19: AM) Glucose Lvl [70-99 179 mg/dL 140 mg/dL mg/dL] *HI* *HI* (03/07/19 4:37 AM) (02/21/19: AM) Hct [42.0-54.0 %] 33.6 % 40.2 % *LOW* *LOW* (03/07/19 4:37 AM) (02/21/19 11:21 AM) Hgb [14.0-18.0 g/dL] 11.8 g/dL 14.0 g/dL *LOW* (02/21/19:21 AM) (03/07/19 4:37 AM) Potassium Lvl 4.0 mEq/L 3.6 mEq/L [3.5-5.1 mEq/L] (03/07/19 4:37 AM) (02/21/19:21 AM) Lymphocytes 10.2 % 33.1 % [20.0-40.0 %] *LOW* (02/21/19:21 AM) (03/07/19 4:37 AM) MCH [27.0-31.0 pg] 30.1 pg 29.5 pg (03/07/19 4:37 AM) (02/21/19 11:21 AM) MCHC [32.0-36.0 35.0 g/dL 34.8 g/dL g/dL] (03/07/19 4:37 AM) (02/21/19 11:21 AM) MCV [80.0-94.0 fL] 85.8 fL 84.9 fL (03/07/19 4:37 AM) (02/21/19 11:21 AM) Monocytes [2.0-12.0 7.3 % 8.4 % %] (03/07/19 4:37 AM) (02/21/19 11:21 AM) MPV [7.4-10.4 fL] 9.3 fL 9.2 fL (03/07/19 4:37 AM) (02/21/19 11:21 AM) Sodium Lvl [135-145 141 mEq/L 144 mEq/L mEq/L] (03/07/19 4:37 AM) (02/21/19 11:21 AM) Platelet [133-450 141 K/CMM 158 K/CMM K/CMM] (03/07/19 4:37 AM) (02/21/19 11:21 AM) Segs [45.0-75.0 %] 82.4 % 55.9 % *HI* (02/21/19 11:21 AM) (03/07/19 4:37 AM) RBC [4.70-6.10 3.92 M/CMM 4.73 M/CMM M/CMM] *LOW* (02/21/19 11:21 AM) (03/07/19 4:37 AM) RDW [11.5-14.5 %] 13.4 % 13.3 % (03/07/19 4:37 AM) (02/21/19 11:21 AM) Vitamin D, 25-OH, 16.4 ng/mL Total [30.0-100.0 *LOW* ng/mL] (02/21/19 11:21 AM) WBC [3.7-10.4 K/CMM] 9.7 K/CMM 4.4 K/CMM (03/07/19 4:37 AM) (02/21/19 11:21 AM) 1Result Comment: The eGFR is calculated using the CKD-EPI formula. In most young, healthy individuals the eGFR will be >90 mL/min/1.73m2. The eGFR declines with age. An eGFR of 60-89 may be normal in some populations, particularly the elderly, for whom the CKD-EPI formula has not been extensively validated. Use of the eGFR is not recommended in the following populations: Individuals with unstable creatinine concentrations, including patients and those with serious co-morbid conditions. Patients with extremes in muscle mass or diet. The data above are obtained from the [employer] ( [employer]) which additionally recommends that when the eGFR is used in patients with extremes of body mass index for purposes of drug dosing, the eGFR should be mul tiplied by the estimated BMI. 2Result Comment: The eGFR is calculated using the CKD-EPI formula. In most young, healthy individuals the eGFR will be >90 mL/min/1.73m2. The eGFR declines with age. An eGFR of 60-89 may be normal in some populations, particularly the elderly, for whom the CKD-EPI formula has not been extensively validated. Use of the eGFR is not recommended in the following populations: Individuals with unstable creatinine concentrations, including patients and those with serious co-morbid conditions. Patients with extremes in muscle mass or diet. The data above are obtained from the National Kidney Disease Education Program ( NKDEP) which additionally recommends that when the eGFR is used in patients with extremes of body mass index for purposes of drug dosing, the eGFR should be mul tiplied by the estimated BMI. Immunizations No data available for this section Procedures Procedure Date Related Diagnosis Body Site Status Fusion of joint of cervical spine by anterior 11/02/18 Completed approach for deformity of cervical spine CABG x 3 - Coronary artery bypass grafts x 3 08/2010 Completed Cystoscopy1 Completed 1removal of kidney stonesvx2 Social History Social History Type Response Substance Abuse Use: Past. Exercise Exercise duration: 0.1 Alcohol Never, Previous treatment: None. Smoking Status Former smoker; Exposure to Tobacco Smoke None; Cigarette Smoking Last 365 Days No; Reg Smoking Cessation Counseling No2 entered on: 03/06/19 1no exercise. Does complain of dyspnea with exertion. 2quit smoking 15yrs ago. Assessment and Plan Extracted from: Title: Clinical Document Author: Vinay Walls Date: 03/07/19 DISCHARGE SUMMARY DATE OF ADMISSION: 03/06/19 DATE OF DISCHARGE: 03/07/19 ADMITTING PHYSICIAN: Saleem Kohler MD CONSULTING PHYSICIAN: [facility] Hospitalist ADMISSION DIAGNOSIS: Hip Osteoarthritis DISCHARGE DIAGNOSIS: Same SECONDARY DIAGNOSES: Acute blood loss anemia, see admission history and physical for past medical history Surgical Procedures: 03/06/19 13:51LEFT TOTAL HIP ARTHROPLASTY [id number] Surgeon: Saleem Kohler MD (Service: ORT) HOSPITAL COURSE: The patient received routine postop care including pain management, DVT prophylaxis, and physical therapy. The patient was able to get out of bed and ambulate safely with physical therapy, while maintaining hip precautions. The post-operative labs and vitals were stable and no blood transfusion was necessary. The patient denied any fever, chills, chest pain, or shortness of breath at discharge and had a normal neurovascular and motor exam. The surgical dressing was clean, dry and intact. Case management was involved to ensure that all medical equipment and other discharge needs were met. The patient was cleared by the hospitalist and physical therapy for discharge. DISPOSITION: Home with home exercise program. CONDITION: Stable. DIET: Resume prior home diet. MEDICATIONS: See discharge medication reconciliation. DISCHARGE INSTRUCTIONS: 1. Instruction sheet given from Dr. Kohler's office. 2. Weight-bearing as tolerated and increase activity as able, unless otherwise instructed. Outpatient physical therapy will be prescribed, if needed, at the first office visit. 3. Maintain posterior hip precautions for a minimum of 6 weeks. 4. Use an ambulatory aid until stable walking. 5. No driving until cleared by Dr. Kohler. 6. Leave the surgical dressing on until the first postoperative visit, unless otherwise instructed. 7. Call Dr. Kohler' office [phone] for a follow-up appointment next week. Extracted from: Title: Clinical Document Author: Vinay Walls Date: 03/07/19 Ortho Progress Note - Adult Reconstruction Dr. Kohler Surgical Procedures: 03/06/19 13:51LEFT TOTAL HIP ARTHROPLASTY [id number] Surgeon: Saleem Kohler MD (Service: ORT) SUBJECTIVE: No events overnight, no complaints, pain controlled, ready to go home. OBJECTIVE: VitalsTmp(F)[id number] 03/07 03:[id number]/193599--- 03/06 22:4098.101586/[id number]--- 03/06 21:14 1894--- 03/06 19:[id number]--- 03/06 16:14----[id number]--- 24 Hr Tmax: 98.2F (36.78c) at 03/06 22:40Vital Signs are the last 5 in the past 48 hours. 24hr Labs 03/07 0437 Glucose Mcw750 H BUN19 Creatinine Lvl0.89 Sodium Ogg150 Potassium Lvl4.0 Chloride Wxk719 CO229 AGAP11.0 Calcium Lvl8.5 eGFR92 WBC9.7 RBC3.92 L Hgb11.8 L Hct33.6 L MCV85.8 MCH30.1 MCHC35.0 RDW13.4 Onylvdnx026 MPV9.3 Segs82.4 H Monocytes7.3 Juxnlqadtpi09.2 L Basophils0.1 Neutrophils #8.0 Lymphocytes #1.0 Monocytes #0.7 Physical Exam: General: Afebrile, Vital Signs Stable, No Apparent Distress, Alert and Oriented x 3 Lower Extremity: Surgical Dressing Clean/Dry/Intact, No erythema, Hip Clinically Reduced Compartments Soft/Compressible, Sensation Intact to Light Touch over the SPN/DPN/TN Dermatomes, Palpable DP/PT Pulses with Brisk Capillary Refill, Firing EHL/FHL/TA/GSC Muscle Groups, Negative Linsey's Sign ASSESSMENT/PLAN: 1 day(s) S/P Left Total Hip Arthroplasty with stable post-operative course thus far -Acute blood loss anemia, no transfusion required at this time -VTE Prophylaxis: MANNY jain, SCDs, Lovenox, resume 81 mg ASA tomorrow, Plavix Tuesday if no signs of active bleeding -Physical Therapy: Weight-bearing as Tolerated, Posterior Hip Precautions -Disposition: Home with Home Exercise Program once cleared by Physical Therapy and Hospitalist. Extracted from: Title: Clinical Document Author: Piper Matias Date: 03/06/19 CHIEF COMPLAINT: Left hip pain, in need of left total hip arthroplasty. HISTORY OF PRESENT ILLNESS: Mr. Cisneros is a pleasant 63-year-old gentleman who returns to clinic today for repeat evaluation of his left hip. He was previously seen in 06/2017. At that time, we discussed that hip preservation may be a good option for his left hip pain given that there was not significant evidence of osteoarthritis on his x-ray imaging and we reviewed MRI showing that he had a left labral tear. The patient was seen and treated by Dr. Lucien Nelson which included hip injections. However, Dr. Nelson did not recommend hip arthroscopy given the degeneration visible on MRI and x-ray. The patient states that the hip injections worked for a few months. However, he is still having continuing worsening pain in his posterior buttock whenever he drives for long periods of time. 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 His pain is worse at night. He has been taking significant amount of ibuprofen for his discomfort. He is only able to walk short distances. PAST MEDICAL HISTORY: Significant for heart disease, hypertension, and kidney stone. PAST SURGICAL HISTORY: C-spine fusion in October 2018, CABG x 3 in 08/2010, and cystoscopy. CURRENT MEDICINES: Please see [facility]. ALLERGIES: NKMA. SOCIAL HISTORY: Nonsmoker, nondrinker, daily caffeine use. FAMILY HISTORY: Denies. REVIEW OF SYSTEMS: An 11-point review of systems was reviewed on the patient's intake chart and signed, positive for frequent urination, need to awaken to urinate, mild blood tinged urine occasionally and musculoskeletal complaints. PHYSICAL EXAMINATION: The patient is 6 feet tall, 282 pounds. His BMI is 38.2. He is breathing stable on room air. He is alert and oriented x3. He is in no acute distress, resting comfortably in the exam room. He is sitting in a exam table weaning to the right to avoid putting too much pressure on his left hip. On physical exam, the patient with mild pain with external and internal rotation of the hip. He has limited forward flexion of the hip. He has 5/5 strength in the left lower extremity. He has a medial incision in his thigh from bypass vein graft harvest. His sensation to light touch distally and has palpable pulses in his foot. X-RAY: Imaging was reviewed today AP and lateral of left hip showing sclerosis and decreased joint space of the left hip. The weightbearing area. ASSESSMENT: The patient is a 63-year-old male with left hip arthritis. Discussed with Amelia in that given his failed nonoperative management and chronicity of his labral tear and degeneration of the cartilage that he is a candidate for a left total hip. We discussed the procedure in detail including removal of the femoral head and placement of acetabular shell. We discussed spinal block anesthesia as well as postop day 0 ambulation. We did also discuss our 1 hour joint education class prior to having surgery as well as preoperative clearance for anesthesia given patient's previous bypass surgery. The patient takes Plavix and low-dose aspirin for his cardiac condition. 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 The patient states he wishes to proceed with left total hip arthroplasty. All of his questions and concerns were answered by Dr. Kohler. Of the patient's 15 minute visit greater than 50% was spent counseling the patient on his treatment plan moving forward. The risks, benefits, and alternatives of a left total hip arthroplasty were discussed with the patient. The risks discussed included but were not limited to the possibility of a DVT, PE, infection, bleeding, necessity for subsequent surgeries, difficulty with anesthesia, nerve palsy, and even . No guarantees were made or implied. I believe that informed, verbal consent was obtained from the patient. Formal, written consent will be obtained on the day of surgery. All of the patient's questions were answered and they expressed understanding of the plan moving forward. The choice of implant to be used during the procedure was discussed with the patient. The patient's controlled substance history for the past year has been reviewed on the [place] Prescription Monitoring Program website, and he has received one opioid medication prescription for #50 [place] 7.5/325mg tablets in October 2018 following his c-spine fusion. Extracted from: Title: Consult Note Author: Priscilla Agustin DO Date: 02/21/19 1.Preop examination(Z01.818) -Type of surgery:Left total hip arthroplasty, intermediate risk -Surgery specific medical issues:Coronary artery disease, congestive heart failure, obstructive sleep apnea, hypertension, hyperlipidemia, intermittent V. tach -Physical exam concerns:Trace lower extremity edema -Patient isnot able to complete greater than 4 METs without cardiovascular symptoms(dyspnea on exertion) -Baseline EKGfrom02/15/2019 reveals sinus rhythm with PVCs, old anterior UT and nonspecificT wave abnormalities -Echocardiogram from 01/12/2019 revealsleft ventricular hypertrophy, EF of 35 to 40%, trace mitral regurgitation, trace Tricuspid regurgitation and trace to mild pulmonic regurgitation -Stress test01/17/2019 reveals a small inferior defect consistent with scar, small anteriorseptal defect consistent with a scar no active ischemiaand diastolic ejection fraction of 41% withanterior and septal hypokinesis -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 Kohler on 03/06/2019. 3.CAD (coronary artery disease)(I25.10) Patient is status post three-vessel coronary artery bypass graft, he is on aspirin, Plavix,ramipril and carvedilol, he was instructed to hold the aspirin and Plavix7 days prior to surgery andtake the carvedilol but hold the ramipril on the morning of surgery 4.Systolic heart failure(I50.20) the EF is 35-40%, chronic, no acute exacerbation, compensated continue ramipril, carvedilol and hydrochlorothiazide, the was instructed to take the carvedilol on the morning of surgery 5.Hypertension(I10) controlled, continue hydrochlorothiazide, ramipril, terazosinand carvedilol, he was instructed to hold the hydrochlorothiazide and ramipril on th emorning of surgery but take the carvedilol and terazosin 6.Hyperlipidemia(E78.5) contineu with crestor 40 mg 7.Obstructive sleep apnea on CPAP(G47.33) the patient was instructed to bring the CPAP with him on the day of surgery, monitor perioperatively 8.BPH (benign prostatic hyperplasia)(N40.0) continue terazosin [facility] hospitalist is a finance consultant, please call [phone] with questions or concerns.
--- OUTSIDE RECORDS SUMMARY | 2019-04-24 16:04 | XMS REPORT | Continuity of Care Document ---
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 Phone [facility] [employer] [employer] Unavailable Unavailable Problems Problem Status Onset Date Classification Date Reported Comments Source LT HIP OA Active 02/02/2019 [employer] M25.552 LEFT HIP PAIN Active 07/25/2017 [facility] M25.552 Active 07/25/2017 [employer] LEFT HIP Active 07/11/2017 [facility] [place] Calculus of right kidney Active 05/13/2014 Problem 11/03/2018 [facility] Renal colic on right side Active 05/13/2014 Problem 11/03/2018 [facility] Myocardial infarction (disorder) Active 08/08/2010 Problem 03/09/2019 [facility] Hyperlipidemia (disorder) Active Problem 03/09/2019 [facility] Hypertensive disorder, systemic arterial (disorder) Active Problem 03/09/2019 [facility] Obstructive sleep apnea syndrome (disorder) Active Problem 03/09/2019 [facility] Osteoarthritis (disorder) Active Problem 03/09/2019 [facility] Medications Medication Details Route Status Patient Instructions Ordering Provider Order Date Source dexamethasone 10 mg, 1 mL, Route: IVP, Drug form: SOLN, ONCE, Dosing Weight 128.4, kg, POD #1, Start date: 03/07/19 15:37:00 CDT, Stop date: 03/07/19 15:37:00 CDT, 0Notes: dexamethasone 10 mg/1 ml VL INJ PF MEDICATION WASTE Product Size: 10 mg Product Wasted: ___ mg Inactive 03/07/2019 [facility] Ramipril 10 mg, 4 cap, Route: PO, Drug form: CAP, Daily, Dosing Weight 128.4, kg, Start date: 03/07/19 9:00:00 CDT, Duration: 30 day, Stop date: 04/05/19 9:00:00 CDT, 0Notes: (Same as:Altace) Inactive 03/07/2019 [facility] pantoprazole 40 mg, 1 tab, Route: PO, Drug form: ECTAB, Daily, Dosing Weight 128.4, kg, Start date: 03/07/19 9:00:00 CDT, Duration: 30 day, Stop date: 04/05/19 9:00:00 CDT, 0Notes: Tablet should not be chewed or crushed. (Same as: Protonix) Inactive 03/07/2019 [facility] Docusate Sodium 50 MG / sennosides, [facility] 8.6 MG Oral Tablet 1 tab, Route: PO, Drug Form: TAB, Dosing Weight 128.4, kg, Daily, Start date: 03/07/19 9:00:00 CDT, Duration: 30 day, Stop date: 04/05/19 9:00:00 CDT, 0Notes: (Same as Senokot-S) Equiv. to Sharonda-Colace. Inactive 03/07/2019 [facility] POLYETHYLENE GLYCOL 3350 17 gm, 1 pkt, Route: PO, Drug form: PWDR, Daily, Dosing Weight 128.4, kg, Hold for loose stools., Start date: 03/07/19 9:00:00 CDT, Duration: 30 day, Stop date: 04/05/19 9:00:00 CDT, 0Notes: Dissolve in 8 oz of water or juice. (Same as: Miralax) Inactive 03/07/2019 [facility] Enoxaparin 40 mg, 0.4 mL, Route: SUB-Q, Drug form: INJ, Daily, Dosing Weight 128.4, kg, Start date: 03/07/19 9:00:00 CDT, Duration: 30 day, Stop date: 04/05/19 9:00:00 CDT, 0Notes: (Same as: Lovenox) Inactive 03/07/2019 [facility] celecoxib 200 MG Oral Capsule [Celebrex] 200 mg=1 cap, PO, BID, # 60 cap, 1 Refill(s) Active 03/07/2019 [facility] gabapentin 100 MG Oral Capsule See Instructions, Take 1 cap in the am Take 3 cap before bed, # 56 cap, 1 Refill(s) Active 03/07/2019 [facility] Acetaminophen 500 MG Oral Tablet 1,000 mg=2 tab, PO, TID, PRN Pain, X 15 day, # 90 tab, 1 Refill(s) Active 03/07/2019 [facility] Oxycodone Hydrochloride 5 MG Oral Tablet 5 mg=1 tab, PO, Q4H, PRN Pain, X 7 day, # 60 tab, 0 Refill(s) Active 03/07/2019 [facility] cefadroxil 500 mg oral capsule 500 mg=1 cap, PO, Q12H, X 10 day, # 20 cap, 0 Refill(s) Active 03/07/2019 [facility] 0.4 ML Enoxaparin sodium 100 MG/ML Prefilled Syringe [Lovenox] 40 mg, SUB-Q, Daily, X 20 day, # 20 syr, 0 Refill(s) Active 03/07/2019 [facility] Vancomycin 2,000 mg, Route: IVPB, ONCE, Dosing Weight 128.4, kg, Time Critical Medication, Start date: 03/07/19 0:00:00 CDT, Stop date: 03/07/19 0:00:00 CDT, Pharmacy to adjust dose for renal function, ABX Indicat ion: Surgical Prophylaxis, 0Notes: TIME CRITICAL MEDICATION (Same As: Vancocin) Infusion rate 2001 mg: infuse over 2.5 hours For adult patients only: Round to nearest 250 mg per Medical Staff approval MEDICATION WASTE Product Size: 1000 mg Product Wasted: ___ mg Inactive 03/07/2019 [facility] Crestor 40 mg, 4 tab, Route: PO, Drug form: TAB, Bedtime, Dosing Weight 128.4, kg, Start date: 03/06/19 21:00:00 CDT, Duration: 30 day, Stop date: 04/04/19 21:00:00 CDT, 0Notes: (Same As: Crestor) No Longer Active 03/07/2019 [facility] Ergocalciferol 09912 UNT Oral Capsule 50,000 IntlUnit, 1 cap, Route: PO, Drug form: CAP, Q7D, Dosing Weight 128.4, kg, Start date: 03/06/19 21:00:00 CDT, Duration: 30 day, Stop date: 04/03/19 21:00:00 CDT, 0Notes: (Same as: Vitamin D) "Do Not Crush" No Longer Active 03/07/2019 [facility] Cefazolin 2 gm, 100 mL, Route: IVPB, Drug form: INJ, Q6H, Dosing Weight 128.4, kg, Start date: 03/06/19 20:00:00 CDT, Duration: 3 doses or times, Stop date: 03/07/19 8:00:00 CDT, ABX Indication: Surgical Prophylaxis, 0Notes: Same as: Ancef No Longer Active 03/07/2019 [facility] Terazosin 5 mg, 1 cap, Route: PO, Drug form: CAP, BID, Dosing Weight 128.4, kg, Start date: 03/06/19 17:00:00 CDT, Duration: 30 day, Stop date: 04/05/19 9:00:00 CDT, 0Notes: (Same As: Hytrin) No Longer Active 03/06/2019 [facility] carvedilol 6.25 mg, 1 tab, Route: PO, Drug form: TAB, BID, Dosing Weight 128.4, kg, Start date: 03/06/19 17:00:00 CDT, Duration: 30 day, Stop date: 04/05/19 9:00:00 CDT, 0Notes: Give with food. (Same As: Coreg) No Longer Active 03/06/2019 [facility] Acetaminophen 1,000 mg, 2 tab, Route: PO, Drug form: TAB, TID, Dosing Weight 128.4, kg, Start date: 03/06/19 17:00:00 CDT, Duration: 30 day, Stop date: 04/05/19 13:00:00 CDT, 0Notes: Max acetaminophen 4000 mg/day (4 gm/day). (Same as: Tylenol Extra Strength) No Longer Active 03/06/2019 [facility] Celebrex 200 mg, 1 cap, Route: PO, Drug form: CAP, BID, Dosing Weight 128.4, kg, Start date: 03/06/19 17:00:00 CDT, Duration: 30 day, Stop date: 04/05/19 9:00:00 CDT, 0Notes: NSAID. Please check indication. Not for seizure. (Same As: CeleBREX) No Longer Active 03/06/2019 [facility] Lyrica 50 mg, 1 cap, Route: PO, Drug form: CAP, Q8H, Dosing Weight 128.4, kg, Start date: 03/06/19 16:00:00 CDT, Duration: 30 day, Stop date: 04/05/19 8:00:00 CDT, 0Notes: Same as Lyrica No Longer Active 03/06/2019 [facility] ondansetron (ANES) Route: IV, Drug form: INJ, ONCE, Stop date: 03/06/19 15:36:00 CDT Inactive 03/06/2019 [facility] Lactated Ringers IV 1,000 mL 1,000 mL, Rate: 75 ml/hr, Infuse over: 13.3 hr, Route: IV, Dosing Weight 128.4 kg, Total Volume: 1,000, Start date: 03/06/19 15:16:00 CDT, Duration: 30 day, Stop date: 04/05/19 15:15:00 CDT, 2.58, m2, 0 No Longer Active 03/06/2019 [facility] Tramadol 50 mg, 1 tab, Route: PO, Drug form: TAB, Q4H, Dosing Weight 128.4, kg, PRN Pain Score 1-3, Start date: 03/06/19 15:16:00 CDT, Duration: 30 day, Stop date: 04/05/19 15:15:00 CDT, 0Notes: Not to exceed 400mg/day. (Same As: Ultram) No Longer Active 03/06/2019 [facility] Milk of Magnesia 30 ml, Route: PO, Drug Form: SUSP, Dosing Weight 128.4, kg, Q6H, PRN as needed for constipation, Start date: 03/06/19 15:16:00 CDT, Duration: 30 day, Stop date: 04/05/19 15:15:00 CDT, 0Notes: (Same as: Milk of Magnesia, MOM) No Longer Active 03/06/2019 [facility] Dexamethasone 10 mg, 1 mL, Route: IVP, Drug form: SOLN, ONCE, Dosing Weight 128.4, kg, POD #1, Start date: 03/06/19 15:16:00 CDT, Stop date: 03/06/19 15:16:00 CDT, 0Notes: dexamethasone 10 mg/1 ml VL INJ PF MEDICATION WASTE Product Size: 10 mg Product Wasted: ___ mg Inactive 03/06/2019 [facility] Morphine 1 mg, 0.1 mL, Route: IVP, Drug form: INJ, Q3H, Dosing Weight 128.4, kg, PRN Pain Score 7-10, If not responding to oral therapy or unable to tolerate PO., Start date: 03/06/19 15:16:00 CDT, Duration: 30 day, Stop date: 04/05/19 15:15:00 CDT, 0Notes: (Same as:MORPhine Sulfate) No Longer Active 03/06/2019 [facility] Ondansetron 4 mg, 2 mL, Route: IV, Drug form: INJ, Q4H, Dosing Weight 128.4, kg, PRN Nausea, Start date: 03/06/19 15:16:00 CDT, Duration: 30 day, Stop date: 04/05/19 15:15:00 CDT, 0Notes: (Same as: Zofran) MEDICATION WASTE Product Size: 4 mg Product Wasted: ___ mg No Longer Active 03/06/2019 [facility] Oxycodone Hydrochloride 5 MG Oral Tablet 10 mg, 2 tab, Route: PO, Drug form: TAB, Q4H, Dosing Weight 128.4, kg, PRN Pain Score 7-10, Start date: 03/06/19 15:16:00 CDT, Duration: 30 day, Stop date: 04/05/19 15:15:00 CDT, 0Notes: (Same as: Roxicodone) No Longer Active 03/06/2019 [facility] tizanidine 2 mg, 0.5 tab, Route: PO, Drug form: TAB, Q8H, Dosing Weight 128.4, kg, PRN Spasm, Start date: 03/06/19 15:16:00 CDT, Duration: 30 day, Stop date: 04/05/19 15:15:00 CDT, 0Notes: (Same As: Zanaflex) No Longer Active 03/06/2019 [facility] Melatonin 3 mg, 1 tab, Route: PO, Drug form: TAB, Bedtime, Dosing Weight 128.4, kg, PRN Insomnia, Start date: 03/06/19 15:16:00 CDT, Duration: 30 day, Stop date: 04/05/19 15:15:00 CDT, 0Notes: (Same as: Melatonin) No Longer Active 03/06/2019 [facility] tranexamic acid (ANES) 100 mg Route: IV, Drug form: INJ, Start date: 03/06/19 14:59:00 CDT, Stop date: 03/06/19 15:59:00 CDT Inactive 03/06/2019 [facility] Hydromorphone 0.5 mg, 0.25 mL, Route: IVP, Drug form: INJ, Q5Min, Dosing Weight 128.4, kg, PRN Pain Score 7-10, Start date: 03/06/19 14:53:00 CDT, Duration: 4 doses or times, Stop date: Limited # of times, 0Notes: Same as Dilaudid Inactive 03/06/2019 [facility] Morphine 2 mg, 0.2 mL, Route: IVP, Drug form: INJ, Q5Min, Dosing Weight 128.4, kg, PRN Pain Score 4-6, Start date: 03/06/19 14:53:00 CDT, Duration: 5 doses or times, Stop date: Limited # of times, 0Notes: (Same as:MORPhine Sulfate) Inactive 03/06/2019 [facility] Acetaminophen 1,000 mg, 2 tab, Route: PO, Drug form: TAB, ONCE, Dosing Weight 128.4, kg, PRN Pain Score 1-3, Start date: 03/06/19 14:53:00 CDT, 0Notes: Max acetaminophen 4000 mg/day (4 gm/day). (Same as: Tylenol Extra Strength) Inactive 03/06/2019 [facility] Labetalol 10 mg, 2 mL, Route: IVP, Drug form: INJ, Q5Min, Dosing Weight 128.4, kg, PRN Elevated BP, Start date: 03/06/19 14:53:00 CDT, Duration: 5 doses or times, Stop date: Limited # of times, 0 No Longer Active 03/06/2019 [facility] Naloxone 0.4 mg, 1 mL, Route: IVP, Drug form: INJ, Q2MIN, Dosing Weight 128.4, kg, PRN Narcotic Reversal, Start date: 03/06/19 14:53:00 CDT, Duration: 8 doses or times, Stop date: Limited # of times, 0Notes: Same as Narcan No Longer Active 03/06/2019 [facility] Flumazenil 0.2 mg, 2 mL, Route: IVP, Drug form: INJ, PRN, Dosing Weight 128.4, kg, PRN Benzodiazepine Reversal, Initial dose, Start date: 03/06/19 14:53:00 CDT, Duration: 30 day, Stop date: 04/05/19 14:52:00 CDT, 0Notes: (Same as: Romazicon) No Longer Active 03/06/2019 [facility] Ondansetron 4 mg, 2 mL, Route: IVP, Drug form: INJ, ONCE, Dosing Weight 128.4, kg, PRN Nausea & Vomiting, Start date: 03/06/19 14:53:00 CDT, 0Notes: (Same as: Zofran) MEDICATION WASTE Product Size: 4 mg Product Wasted: ___ mg No Longer Active 03/06/2019 [facility] Promethazine 6.25 mg, 0.25 mL, Route: IVPB, Drug form: INJ, ONCE, Dosing Weight 128.4, kg, PRN Nausea & Vomiting, Start date: 03/06/19 14:53:00 CDT, 0Notes: Do not give IV push. (Same as: Phenergan) No Longer Active 03/06/2019 [facility] Meperidine 12.5 mg, 0.25 mL, Route: IVP, Drug form: INJ, Q30Min, Dosing Weight 128.4, kg, PRN Other -See Comment, For shivering, Start date: 03/06/19 14:53:00 CDT, Duration: 2 doses or times, Stop date: Limited # of times, 0Notes: (Same as: Demerol) "Use Precaution in Elderly, Seizure disorders, and Renal impairment" No Longer Active 03/06/2019 [facility] Hydralazine 10 mg, 0.5 mL, Route: IVP, Drug form: INJ, Q20Min, Dosing Weight 128.4, kg, PRN Elevated BP, Start date: 03/06/19 14:53:00 CDT, Duration: 2 doses or times, Stop date: Limited # of times, 0Notes: (Same as: Apresoline) Push over 5 minutes No Longer Active 03/06/2019 [facility] metoprolol (ANES) Route: IV, Drug form: INJ, ONCE, Stop date: 03/06/19 14:31:00 CDT Inactive 03/06/2019 [facility] dexamethasone (ANES) Route: IV, Drug form: INJ, ONCE, Stop date: 03/06/19 14:21:00 CDT Inactive 03/06/2019 [facility] niCARdipine (ANES) Route: IV, Drug form: INJ, ONCE, Stop date: 03/06/19 14:16:00 CDT Inactive 03/06/2019 [facility] lidocaine (ANES) Route: IV, Drug form: INJ, ONCE, Stop date: 03/06/19 14:10:00 CDT Inactive 03/06/2019 [facility] propofol (ANES) Route: IV, Drug form: INJ, ONCE, Stop date: 03/06/19 14:10:00 CDT Inactive 03/06/2019 [facility] ceFAZolin (ANES) Route: IV, Drug form: INJ, ONCE, Stop date: 03/06/19 14:10:00 CDT Inactive 03/06/2019 [facility] tranexamic acid (ANES) 100 mg Route: IV, Drug form: INJ, Start date: 03/06/19 13:30:00 CDT, Stop date: 03/06/19 14:30:00 CDT Inactive 03/06/2019 [facility] propofol (ANES) 10 mg Route: IV, Drug form: INJ, Start date: 03/06/19 13:19:00 CDT, Stop date: 03/06/19 14:19:00 CDT Inactive 03/06/2019 [facility] Lactated Ringers Injection IV (ANES) 1000 mL Route: IV, Total Volume: 1,000, Start date: 03/06/19 12:47:00 CDT, Stop date: 03/06/19 13:47:00 CDT Inactive 03/06/2019 [facility] Vancomycin 2,000 mg, Route: IVPB, ONCALL, Dosing Weight 128.4, kg, Start date: 03/06/19 12:00:00 CDT, Duration: 1 doses or times, Stop date: 03/06/19 15:00:00 CDT, ABX Indication: Surgical Prophylaxis, 0Notes: TIME CRITICAL MEDICATION (Same As: Vancocin) Infusion rate 2001 mg: infuse over 2.5 hours For adult patients only: Round to nearest 250 mg per Medical Staff approval MEDICATION WASTE Product Size: 1000 mg Product Wasted: ___ mg Inactive 03/06/2019 [facility] Cefazolin 3 gm, Route: IVP, Drug form: PDR/INJ, ONCALL, Dosing Weight 126.818, kg, (Patients weighing >/=120 kg), Start date: 03/06/19 12:00:00 CDT, Duration: 1 doses or times, ABX Indication: Surgical Prophylaxis, 0Notes: (Same As: Delmy Childs) MEDICATION WASTE Product Size: 1000 mg Product Wasted: ___ mg Inactive 03/06/2019 [facility] ceFAZolin 2 gm, 50 mL, Route: IVPB, Drug form: INJ, PRE OP, Start date: 03/06/19 12:00:00 CDT, Stop date: 03/06/19 17:00:00 CDT, ABX Indication: Surgical Prophylaxis, 0 Inactive 03/06/2019 [facility] ceFAZolin + Sodium Chloride 0.9% IV 100 mL 1 gm, Route: IVPB, Drug form: PDR/INJ, PRE OP, Start date: 03/06/19 12:00:00 CDT, Stop date: 03/06/19 17:00:00 CDT, ABX Indication: Surgical Prophylaxis, 0Notes: (Same As: Ancef Kefzol) MEDICATION WASTE Product Size: 1000 mg Product Wasted: ___ mg Inactive 03/06/2019 [facility] Famotidine 20 MG Oral Tablet 20 mg, 1 tab, Route: PO, Drug form: TAB, ONCE, Dosing Weight 128.4, kg, Pre-operative., Start date: 03/06/19 11:29:00 CDT, Stop date: 03/06/19 11:29:00 CDT, 0Notes: (Same as: Pepcid) Inactive 03/06/2019 [facility] Acetaminophen 1,000 mg, 2 tab, Route: PO, Drug form: TAB, ONCE, Dosing Weight 128.4, kg, Pre-operative., Start date: 03/06/19 11:29:00 CDT, Stop date: 03/06/19 11:29:00 CDT, 0Notes: Max acetaminophen 4000 mg/day (4 gm/day). (Same as: Tylenol Extra Strength) Inactive 03/06/2019 [facility] Lactated Ringers IV 1,000 mL 1,000 mL, Rate: 100 ml/hr, Infuse over: 10 hr, Route: IV, Dosing Weight 128.4 kg, Total Volume: 1,000, Start date: 03/06/19 11:29:00 CDT, Duration: 30 day, Stop date: 04/05/19 11:28:00 CDT, 2.58, m2, 0 Inactive 03/06/2019 [facility] Calcium Chloride 0.0014 MEQ/ML / Potassium Chloride 0.004 MEQ/ML / Sodium Chloride 0.103 MEQ/ML / Sodium Lactate 0.028 MEQ/ML Injectable Solution 1,000 mL, 1,000 ml/hr, Infuse Over: 1 hr, Route: IV, 1,000, Drug form: INJ, ONCE, Priority: STAT, Dosing Weight 126.818 kg, Start date: 03/06/19 11:29:00 CDT, Stop date: 03/06/19 11:29:00 CDT, 0 Inactive 03/06/2019 [facility] Oxycodone Hydrochloride 5 MG Oral Tablet 5 mg, 1 tab, Route: PO, Drug form: TAB, ONCE, Dosing Weight 128.4, kg, Start date: 03/06/19 11:29:00 CDT, Stop date: 03/06/19 11:29:00 CDT, 0Notes: (Same as: Roxicodone) Inactive 03/06/2019 [facility] Phenergan 12.5 mg, 1 tab, Route: PO, Drug form: TAB, ONCE, Dosing Weight 128.4, kg, Start date: 03/06/19 11:29:00 CDT, Stop date: 03/06/19 11:29:00 CDT, 0Notes: (Same as: Phenergan) Inactive 03/06/2019 [facility] celecoxib 200 mg, 1 cap, Route: PO, Drug form: CAP, ONCE, Dosing Weight 128.4, kg, Start date: 03/06/19 11:29:00 CDT, Stop date: 03/06/19 11:29:00 CDT, 0Notes: NSAID. Please check indication. Not for seizure. (Same As: CeleBREX) Inactive 03/06/2019 [facility] polymyxin B sulfate + Sodium Chloride 0.9% IV 250 mL 125,000 unit, Route: IRRIG, ONCALL, Start date: 03/06/19 6:00:00 CDT, Duration: 1 doses or times, Stop date: 03/06/19 18:00:00 CDT, ABX Indication: Surgical Prophylaxis, 0Notes: (Same as: Polymyxin B Sulfate) No Longer Active 03/06/2019 [facility] vancomycin + Sodium Chloride 0.9% IV 250 mL 500 mg, Route: IRRIG, ONCALL, Start date: 03/06/19 6:00:00 CDT, Duration: 1 doses or times, Stop date: 03/06/19 18:00:00 CDT, ABX Indication: Surgical Prophylaxis, 0Notes: TIME CRITICAL MEDICATION (Same As: Vancocin) For adult patients only: Round to nearest 250 mg per Medical Staff approval No Longer Active 03/06/2019 [facility] ropivacaine 100 mL, Route: InFILtration(local), Drug Form: INJ, ONCALL, Start date: 03/06/19 6:00:00 CDT, Stop date: 03/06/19 18:00:00 CDT, 0Notes: NOT FOR IV use Each mL contains: Ropivacaine 2.46 mg, Epinep hrine 0.005 mg, Clonidine 0.0008 mg and Ketorolac 0.3 mg in Sodium Chloride No Longer Active 03/06/2019 [facility] ibuprofen 600 mg oral tablet 600 mg=1 tab, PO, QAM, PRN pain, # 30 tab, 0 Refill(s) No Longer Active 02/14/2019 [facility] ibuprofen 800 mg oral tablet 800 mg=1 tab, PO, QPM, PRN Pain, Take with food, # 30 tab, 0 Refill(s) No Longer Active 02/14/2019 [facility] Ciprofloxacin Hcl (Cipro) 500 Mg Tablet, 500 Mg Oral Every 12 Hours Active 10/31/2018 [facility] Gabapentin 300 Mg Capsule, 300 Mg Oral Twice A Day Active 10/31/2018 [facility] Niacin (Niaspan) 1,000 Mg Tab.er.24h, 1000 Mg Oral Bedtime Active 10/31/2018 [facility] Tylenol #4 , 1-2 Tab Oral Every 4 Hours as needed for Pain Active 10/31/2018 [facility] terazosin 5 mg oral capsule 5 mg=1 cap, PO, Bedtime, 0 Refill(s) Active 07/27/2017 [facility] carvedilol 6.25 mg oral tablet 6.25 mg=1 tab, PO, BID, 0 Refill(s) Active 07/27/2017 [facility] clopidogrel 75 mg oral tablet 75 mg=1 tab, PO, Daily, 0 Refill(s) Active 07/27/2017 [facility] ramipril 10 mg oral capsule 10 mg=1 cap, PO, Daily, 0 Refill(s) Active 07/27/2017 [facility] Rosuvastatin calcium 40 MG Oral Tablet [Crestor] 40 mg=1 tab, PO, Bedtime, # 30 tab, 0 Refill(s) Active 07/27/2017 [facility] aspirin 81 mg tablet, enteric coated 81 mg=1 tab, PO, Daily, # 90 tab, 3 Refill(s) Active 07/27/2017 [facility] Hydrochlorothiazide 12.5 mg, PO, Daily, 0 Refill(s) Active 07/27/2017 [facility] Aspirin/Calcium Carbonate/Mag (Asa-Ca Carb-Mag 325 Mg Tablet) 325 Mg Tablet, 1 Tab Oral Daily Active 05/13/2014 [facility] Hydrochlorothiazide 25 Mg Tablet, 25 Mg Oral Daily Active 05/13/2014 [facility] Clopidogrel Bisulfate (Plavix) 75 Mg Tablet, 75 Mg Oral Daily Active 03/07/2012 [facility] Fenofibrate (Lipofen) 150 Mg Capsule, 150 Mg Oral Daily Active 03/07/2012 [facility] Metoprolol Succinate (Toprol Xl) 25 Mg Tab.sr.24h, 25 Mg Oral Daily Active 03/07/2012 [facility] Nitrofurmacr , 100 Mg as needed Active 03/07/2012 [facility] Simvastatin 20 Mg Tablet, 1 Tab Oral Daily Active 03/07/2012 [facility] Plavix , Active 11/01/2011 [facility] Propoxyphene/Acetaminophen (Darvocet-N 100 Tablet) 1 Each Tablet, 1 Tab Oral As Needed Active 11/01/2011 [facility] Simvastatin 5 Mg Tablet, Active 11/01/2011 [facility] Aspirin (Ecotrin) 81 Mg Tablet.dr Bedtime Active [facility] Carvedilol (Coreg Cr*) 10 Mg Capcr Twice A Day Active [facility] Clopidogrel Bisulfate (Plavix) 75 Mg Tablet Daily Active [facility] Hydrochlorothiazide 25 Mg Tablet Daily Active [facility] Ramipril 5 Mg Capsule Twice A Day Active [facility] Rosuvastatin Calcium (Crestor) 20 Mg Tablet Bedtime Active [facility] Terazosin Hcl 5 Mg Capsule Twice A Day Active [facility] Allergies, Adverse Reactions, Alerts No Known Medication Allergies Immunizations No Data Provided for This Section Results Order Name Results Value Reference Range Date Interpretation Comments Source ELECTROLYTES AGAP 11.0 10.0 - 20.0 03/07/2019 [facility] ELECTROLYTES eGFR 92 03/07/2019 Result Comment: The eGFR is calculated using the [...] from the National Kidney Disease Education Program (NKDEP) which additionally recommends that when the eGFR is used in patients with extremes of body mass index for purposes of drug dosing, the eGFR should be multiplied by the estimated BMI. [facility] ELECTROLYTES Chloride Lvl 105 95 - 109 03/07/2019 [facility] ELECTROLYTES CO2 29 24 - 32 03/07/2019 [facility] ELECTROLYTES Calcium Lvl 8.5 8.5 - 10.5 03/07/2019 [facility] ELECTROLYTES BUN 19 7 - 22 03/07/2019 [facility] ELECTROLYTES Glucose Lvl 179 70 - 99 03/07/2019 [facility] ELECTROLYTES Creatinine Lvl 0.89 0.50 - 1.40 03/07/2019 [facility] ELECTROLYTES Potassium Lvl 4.0 3.5 - 5.1 03/07/2019 [facility] ELECTROLYTES Sodium Lvl 141 135 - 145 03/07/2019 [facility] HEMATOLOGY Lymphocytes # 1.0 1.0 - 5.5 03/07/2019 [facility] HEMATOLOGY Neutrophils # 8.0 1.5 - 8.1 03/07/2019 [facility] HEMATOLOGY Basophils 0.1 0.0 - 1.0 03/07/2019 [facility] HEMATOLOGY Monocytes # 0.7 0.0 - 0.8 03/07/2019 [facility] HEMATOLOGY Lymphocytes 10.2 20.0 - 40.0 03/07/2019 [facility] HEMATOLOGY Monocytes 7.3 2.0 - 12.0 03/07/2019 [facility] HEMATOLOGY Segs 82.4 45.0 - 75.0 03/07/2019 [facility] HEMATOLOGY RBC 3.92 4.70 - 6.10 03/07/2019 [facility] HEMATOLOGY WBC 9.7 3.7 - 10.4 03/07/2019 [facility] HEMATOLOGY MCH 30.1 27.0 - 31.0 03/07/2019 [facility] HEMATOLOGY MCV 85.8 80.0 - 94.0 03/07/2019 [facility] HEMATOLOGY MCHC 35.0 32.0 - 36.0 03/07/2019 [facility] HEMATOLOGY RDW 13.4 11.5 - 14.5 03/07/2019 [facility] HEMATOLOGY Platelet 141 133 - 450 03/07/2019 [facility] HEMATOLOGY MPV 9.3 7.4 - 10.4 03/07/2019 [facility] HEMATOLOGY Hct 33.6 42.0 - 54.0 03/07/2019 [facility] HEMATOLOGY Hgb 11.8 14.0 - 18.0 03/07/2019 [facility] CHEM PANEL Albumin Lvl 3.8 3.5 - 5.0 02/21/2019 [facility] CHEM PANEL Vitamin D, 25-OH, Total 16.4 30.0 - 100.0 02/21/2019 [facility] ELECTROLYTES AGAP 14.6 10.0 - 20.0 02/21/2019 [facility] ELECTROLYTES eGFR 88 02/21/2019 Result Comment: The eGFR is calculated using the [...] from the [employer] (NKDEP) which additionally recommends that when the eGFR is used in patients with extremes of body mass index for purposes of drug dosing, the eGFR should be multiplied by the estimated BMI. [facility] ELECTROLYTES CO2 29 24 - 32 02/21/2019 [facility] ELECTROLYTES BUN 22 7 - 22 02/21/2019 [facility] ELECTROLYTES Creatinine Lvl 0.93 0.50 - 1.40 02/21/2019 [facility] ELECTROLYTES Calcium Lvl 9.5 8.5 - 10.5 02/21/2019 [facility] ELECTROLYTES Sodium Lvl 144 135 - 145 02/21/2019 [facility] ELECTROLYTES Potassium Lvl 3.6 3.5 - 5.1 02/21/2019 [facility] ELECTROLYTES Glucose Lvl 140 70 - 99 02/21/2019 [facility] ELECTROLYTES Chloride Lvl 104 95 - 109 02/21/2019 [facility] HEMATOLOGY Eosinophils # 0.1 0.0 - 0.5 02/21/2019 [facility] HEMATOLOGY Monocytes # 0.4 0.0 - 0.8 02/21/2019 [facility] HEMATOLOGY Lymphocytes # 1.5 1.0 - 5.5 02/21/2019 [facility] HEMATOLOGY Basophils 0.6 0.0 - 1.0 02/21/2019 [facility] HEMATOLOGY Neutrophils # 2.5 1.5 - 8.1 02/21/2019 [facility] HEMATOLOGY Monocytes 8.4 2.0 - 12.0 02/21/2019 [facility] HEMATOLOGY Eosinophils 2.0 0.0 - 4.0 02/21/2019 [facility] HEMATOLOGY Segs 55.9 45.0 - 75.0 02/21/2019 [facility] HEMATOLOGY Lymphocytes 33.1 20.0 - 40.0 02/21/2019 [facility] HEMATOLOGY Platelet 158 133 - 450 02/21/2019 [facility] HEMATOLOGY MPV 9.2 7.4 - 10.4 02/21/2019 [facility] HEMATOLOGY RDW 13.3 11.5 - 14.5 02/21/2019 [facility] HEMATOLOGY MCHC 34.8 32.0 - 36.0 02/21/2019 [facility] HEMATOLOGY Hgb 14.0 14.0 - 18.0 02/21/2019 [facility] HEMATOLOGY MCH 29.5 27.0 - 31.0 02/21/2019 [facility] HEMATOLOGY Hct 40.2 42.0 - 54.0 02/21/2019 [facility] HEMATOLOGY MCV 84.9 80.0 - 94.0 02/21/2019 [facility] HEMATOLOGY RBC 4.73 4.70 - 6.10 02/21/2019 [facility] HEMATOLOGY WBC 4.4 3.7 - 10.4 02/21/2019 [facility] Blood leukocytes automated count (number/volume) 3.63 4.8 - 10.8 10/31/2018 [facility] Blood erythrocytes automated count (number/volume) 4.65 4.3 - 5.7 10/31/2018 [facility] Blood hemoglobin measurement (moles/volume) 13.3 14.0 - 18.0 10/31/2018 [facility] Automated blood hematocrit (volume fraction) 40.0 38.2 - 49.6 10/31/2018 [facility] Automated erythrocyte mean corpuscular volume 86.0 81 - 99 10/31/2018 [facility] Automated erythrocyte mean corpuscular hemoglobin (mass per erythrocyte) 28.6 28 - 32 10/31/2018 [facility] Automated erythrocyte mean corpuscular hemoglobin concentration measurement (mass/volume) 33.3 31 - 35 10/31/2018 [facility] RDW BldCo-Rto 12.3 11.7 - 14.4 10/31/2018 [facility] Automated blood platelet count (count/volume) 147 140 - 360 10/31/2018 [facility] Automated blood segmented neutrophil count as percentage of total leukocytes 50.4 38.7 - 80.0 10/31/2018 [facility] Automated blood lymphocyte count as percentage ot total leukocytes 36.6 18.0 - 39.1 10/31/2018 [facility] Automated blood monocyte count as percentage of total leukocytes 8.5 4.4 - 11.3 10/31/2018 [facility] Automated blood eosinophil count as percentage of total leukocytes 2.8 0.0 - 6.0 10/31/2018 [facility] Automated blood basophil count as percentage of total leukocytes 1.1 0.0 - 1.0 10/31/2018 [facility] IM GRANULOCYTES % 0.6 0.0 - 1.0 10/31/2018 [facility] Automated blood neutrophil count 1.8 2.1 - 6.9 10/31/2018 [facility] Blood lymphocytes count (number/volume) 1.3 1.0 - 3.2 10/31/2018 [facility] Blood monocytes automated count (number/volume) 0.3 0.2 - 0.8 10/31/2018 [facility] Automated blood eosinophil count 0.1 0.0 - 0.4 10/31/2018 [facility] Automated blood basophil count (count/volume) 0.0 0.0 - 0.1 10/31/2018 [facility] Absolute Immature Granulocyte (auto 0.02 0 - 0.1 10/31/2018 [facility] Prothrombin time (PT) in platelet poor plasma by coagulation assay 12.4 11.9 - 14.5 10/31/2018 [facility] INR in Platelet poor plasma by Coagulation assay 0.88 10/31/2018 [facility] Activated partial thromboplastin time (aPTT) in platelet poor plasma bycoagulation assay 25.1 23.8 - 35.5 10/31/2018 [facility] Serum or plasma sodium measurement (moles/volume) 135 136 - 145 10/31/2018 [facility] Serum or plasma potassium measurement (moles/volume) 3.5 3.5 - 5.1 10/31/2018 [facility] Serum or plasma chloride measurement (moles/volume) 101 98 - 107 10/31/2018 [facility] Serum or plasma carbon dioxide, total measurement (moles/volume) 28 22 - 29 10/31/2018 [facility] Serum or plasma anion gap 9.5 8 - 16 10/31/2018 [facility] Serum or plasma urea nitrogen measurement (mass/volume) 22 7 - 26 10/31/2018 [facility] Serum or plasma creatinine measurement (mass/volume) 0.93 0.72 - 1.25 10/31/2018 [facility] Serum or plasma urea nitrogen/creatinine mass ratio 24 6 - 25 10/31/2018 [facility] Estimated glomerular filtration rate (GFR) determination > 60 60 10/31/2018 [facility] Glucose measurement 152 74 - 118 10/31/2018 [facility] Serum or plasma calcium measurement (mass/volume) 9.6 8.4 - 10.2 10/31/2018 [facility] Pathology Reports No Data Provided for This Section Diagnostic Reports Report Value Date Source Pelvis AP DX EXAM: XR PELVIS 1 VIEW DATE: 03/06/2019 15:16 CDT INDICATION: Pain Post Trauma - Post-operative in PACU COMPARISON: Left hip radiograph 03/06/2019 at 2:22 PM TECHNIQUE: A single AP supine radiograph of the pelvis FINDINGS: Completion of left total hip arthroplasty, which is in satisfactory alignment. No perihardware fracture. Mild left hip soft tissue gas. IMPRESSION: Satisfactory appearance of left total hip arthroplasty. 03/06/2019 [facility] Hip 1 view DX EXAM: Hip 1 view DX DATE: 03/06/2019 6:30 CDT INDICATION: - LEFT TOTAL HIP ARTHROPLASTY . Intraoperative check. COMPARISON: 2016 TECHNIQUE: Limited AP of pelvis. DISCUSSION: Intraoperative check radiograph demonstrates satisfactory position and alignment of left total hip replacement sizing device Artifact from intraoperative instrumentation is noted and limits some of the evaluation.. IMPRESSION: Intraoperative radiograph demonstrates satisfactory alignment of the left total hip replacement sizing device.. 03/06/2019 [facility] Hip w contrast MRI EXAM: MR ARTHROGRAM LEFT HIP DATE: 07/27/2017 12:42 PM DONOR SERVICES TECHNICIAN INDICATION: pain in left hip COMPARISON: None. TECHNIQUE: Fluoroscopic guided arthrogram was performed prior to MRI. A mixture of dilute gadolinium and anesthetic were administered. Please see corresponding report for full details. Multiplanar, multisequence MR imaging of the hip. FINDINGS: LABRUM: Complex tear of the anterosuperior and posterosuperior labrum is seen. LIGAMENTS: The ligamentum teres and the capsular ligaments are intact. MUSCLES/TENDONS: No signal abnormality in the muscles or tendons. CARTILAGE: Cartilage fissuring is seen at the superolateral femoral head. BONE: Subchondral cysts are seen at the peripheral weightbearing surface of the acetabulum. A CAM deformity is seen SOFT TISSUE: Fat-containing left inguinal hernia is present. No abnormality of the visualized neurovascular structures. IMPRESSION: 1. Complex superior labral tear extending from anterior to posterior. 2. Cartilage thinning and fissuring at the peripheral weight-bearing surface of the left hip joint. 3. Mild subchondral cysts at the peripheral weightbearing surface of the left acetabulum. 4. CAM deformity of the left femur. 07/27/2017 [facility] Hip arthrogram Unilateral DX EXAM: FLUOROSCOPY-GUIDED LEFT HIP INJECTION DATE: 07/27/2017 12:41 PM DONOR SERVICES TECHNICIAN. INDICATION: pain in left hip - hip arthrogram. COMPARISON: None. PRE-PROCEDURE: Consent: An informed consent was obtained from patient prior to the procedure. Appropriate time out procedures were performed. PROCEDURE: The skin was prepped and draped in the usual fashion under aseptic precautions. 1% lidocaine was utilized for local anesthesia. Under fluoroscopic guidance a 25 gauge long spinal needle was used to access the hip joint. 2 mL of Omnipaque 300 was injected under fluoroscopic guidance to confirm intra- articular needle placement. 1mL (40mg) Kenalog was injected followed by 10ml of a mixture of 6 mL of a mixture of 0.1 mL Dotarem with 10 mL of saline, and 4 mL of 0.2% ropivacaine drawn into a 10 mL syringe. No immediate complications. Preprocedure pain score: 2/10 Postprocedure pain score: 0/10 FLUORO TIME: [address] Andrew Toro, attending, was present for the procedure. IMPRESSION: Technically successful fluoroscopy-guided left hip injection. 07/27/2017 [facility] Consultation Notes No Data Provided for This Section Discharge Summaries No Data Provided for This Section History and Physicals No Data Provided for This Section Vital Signs Vital Sign Value Date Comments Source Systolic (mm Hg) 130 03/07/2019 [facility] Diastolic (mm Hg) 63 03/07/2019 [facility] Temperature Oral (F) 98.6 F 03/07/2019 [facility] Respitory Rate 17 03/07/2019 [facility] Heart Rate 69 03/07/2019 [facility] Systolic (mm Hg) 143 03/07/2019 [facility] Diastolic (mm Hg) 86 03/07/2019 [facility] Respitory Rate 17 03/07/2019 [facility] Heart Rate 62 03/07/2019 [facility] Temperature Oral (F) 98.4 F 03/07/2019 [facility] Systolic (mm Hg) 111 03/07/2019 [facility] Diastolic (mm Hg) 64 03/07/2019 [facility] Respitory Rate 16 03/07/2019 [facility] Heart Rate 61 03/07/2019 [facility] Temperature Oral (F) 98.0 F 03/07/2019 [facility] BMI Calculated 38.39 03/06/2019 [facility] Height 182.88 cm 03/06/2019 [facility] Weight 128.4 03/06/2019 [facility] Heart Rate 82 07/27/2017 [facility] Respitory Rate 17 07/27/2017 [facility] Systolic (mm Hg) 154 07/27/2017 [facility] Diastolic (mm Hg) 89 07/27/2017 [facility] BMI Calculated 37.37 07/27/2017 [facility] Height 182.88 cm 07/27/2017 [facility] Weight 125 07/27/2017 [facility] Respitory Rate 18 07/27/2017 [facility] Systolic (mm Hg) 157 07/27/2017 [facility] Diastolic (mm Hg) 92 07/27/2017 [facility] Heart Rate 88 07/27/2017 [facility] Encounters Location Location Details Encounter Type Encounter Number Reason For Visit Attending Provider ADM Date DC Date Status Source [facility] Outpatient [id number] [facility] MANUEL 07/27/2017 07/28/2017 [facility] [id number] RITA TIRADO DO 10/11/2018 [facility] Discharged Inpatient (obs) [id number] RICH SANDERS MD 11/02/2018 11/03/2018 [facility] In[facility] [id number] Saleem Edita 03/06/2019 03/07/2019 [facility] Procedures Procedure Code Date Perfomer Comments Source Fusion of joint of cervical spine by anterior approach for deformity of cervical spine [id number] 11/02/2018 [facility] Anterior cervical discectomy [id number] 11/02/2018 [facility] X-ray of chest, two views [id number] 10/31/2018 [facility] Magnetic resonance imaging of cervical spine without contrast [id number] 10/11/2018 [facility] Injection procedure for hip arthrography; without anesthesia [id number] 07/27/2017 [facility] CABG x 3 - Coronary artery bypass grafts x 3 [id number] 08/08/2010 [facility] Cystoscopy<sup>1</sup> [id number] removal of kidney stonesvx2 [facility] Assessment and Plan Assessment and Plan Date Source Extracted from:Title: Clinical Document Author: Vinay Walls Date: 03/07/19 DISCHARGE SUMMARY DATE OF ADMISSION: 03/06/19 DATE OF DISCHARGE: 03/07/19 ADMITTING PHYSICIAN: Saleem Kohler MD [facility] AD[facility] DIAGNOSIS: Hip Osteoarthritis DISCHARGE DIAGNOSIS: Same SECONDARY DIAGNOSES: Acute blood loss anemia, see admission history and physical for past medical history Surgical Procedures: 03/06/19 13:51 LEFT TOTAL HIP ARTHROPLASTY [id number] Primary Surgeon: Saelem Kohler MD (Service: ORT) HOSPITAL COURSE: The [...] otherwise instructed. 7. Call Dr. Kohler' office [phone] for a follow-up appointment next week. Extracted from:Title: Clinical Document Author: Vinay Walls Date: 03/07/19 Ortho Progress Note - Adult Reconstruction Dr. Kohler Surgical Procedures: 03/06/19 13:51 LEFT TOTAL HIP ARTHROPLASTY [id number] Primary Surgeon: Saleem Kohler MD (Service: ORT) SUBJECTIVE: No events overnight, no complaints, pain controlled, ready to go home. OBJECTIVE: Vitals Tmp(F) Pulse BP RR SpO2 FIO2 03/07 03:40 98.0 61 111/64 16 95 --- 03/06 22:40 98.2 60 112/60 16 96 --- 03/06 21:14 ---- --- ----- 18 94 --- 03/06 19:08 97.9 71 124/79 18 94 --- 03/06 16:14 ---- 65 128/82 18 100 --- 24 Hr Tmax: 98.2F (36.78c) at 03/06 22:40 Vital Signs are the last 5 in the past 48 hours. 24hr Labs 03/07 0437 Glucose Lvl 179 H BUN 19 Creatinine Lvl 0.89 Sodium Lvl 141 Potassium Lvl 4.0 Chloride Lvl 105 CO2 29 AGAP 11.0 Calcium Lvl 8.5 eGFR 92 WBC 9.7 RBC 3.92 L Hgb 11.8 L Hct 33.6 L MCV 85.8 MCH 30.1 MCHC 35.0 RDW 13.4 Platelet 141 MPV 9.3 Segs 82.4 H Monocytes 7.3 Lymphocytes 10.2 L Basophils 0.1 Neutrophils # 8.0 Lymphocytes # 1.0 Monocytes # 0.7 Physical Exam: General: Afebrile, Vital Signs Stable, [...] cleared by Physical Therapy and Hospitalist. Extracted from:Title: Clinical Document Author: Piper Matias Date: 03/06/19 [...] of time. 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 Discussed with Mr. Cisneros in that given his failed nonoperative management [...] received one opioid medication prescription for #50 [place] 7.5/325mg tablets in October 2018 following his c-spine fusion. Extracted from:Title: Consult Note Author: Priscilla Agustin DO Date: [...] reveals sinus rhythm with PVCs, old anterior PR and nonspecificT wave abnormalities -Echocardiogram from 01/12/2019 revealsleft ventricular hypertrophy, EF of 35 to 40%, trace mitral regurgitation, trace Tricuspid regurgitation and trace to mild pulmonic regurgitation -Stress test01/17/2019 reveals a small inferior defect consistent with scar, small anteriorseptal defect consistent with a scar no active ischemiaand diastolic ejection fraction of 41% withanterior and septal hypokinesis -Outpatient patient scheduling manager: -Revised cardiac index score is2 thus putting [...] perioperatively 8.BPH (benign prostatic hyperplasia)(N40.0) continue terazosin [facility] hospitalist is a guidance consultant, please call [phone] with questions or concerns. 03/07/2019 [facility] Plan of Care Plan of Care Date Source Discharge Date 11/03/18 1:07pm Disposition HOME, SELF-CARE Instructions/Education Provided Post Operative Pain Prescriptions See Medication Section Referrals RICH SANDERS MD (Neurology) Order Date: 7-10 Days Entered Date: 11/03/2018 12:06pm Address: [address] [place] [address] [address] [place] [address] Additional Instructions/Education MAY SHOWER SEE DR. SANDERS'S INSTRUCTIONS LEAVE STERILE STRIPS IN PLACE TAKE MEDICINE PRESCRIBED NOTIFY DR. SANDERS FOR A FEVER GREATER THAN 101, INCREASED PAIN NOT RELIEVED BY PAIN MEDICINE, ANY PUS OR FOUL ODOR FROM INCISION SITE 11/03/2018 [facility] Social History Social History Date Source Social History TypeResponse Substance Abuse Use: Past. Exercise Exercise duration: 0.1 Alcohol Never, Previous treatment: None. Smoking Status Former smoker; Exposure to Tobacco Smoke None; Cigarette Smoking Last 365 Days No; Reg Smoking Cessation Counseling No2 entered on: 03/06/19 1no exercise. Does complain of dyspnea with exertion.2quit smoking 15yrs ago. 02/14/2019 [facility] Social History Problem Response Recorded Date/Time Onset Date Status Hx Psychiatric Problems No 05/13/2014 6:00am Not Applicable Not Applicable 11/03/2018 [facility] Family History No Data Provided for This Section Advance Directives Order Name Results Value Date Source Advance Directives Advance Directives Directive Response Recorded Date/Time Does the patient have an advance directive? No 11/02/18 3:22pm If yes, is advance directive on file with [facility]? No 11/02/18 8:22am If not on file with [facility] will patient provide a copy? No 11/02/18 8:22am Do you have a Directive to Physician? No 10/31/18 12:50pm Do you have a Medical Power of Supervisory Clerk? No 10/31/18 12:50pm Do you have an out of hospital Do Not Resuscitate Order? No 10/31/18 12:50pm Do you have any special needs we should be aware of? No 10/31/18 12:50pm Do you have a support person here with you today? Yes 10/31/18 12:50pm Did patient receive Notice of Privacy Practices? No 11/02/18 8:22am Did patient receive patient rights and responsibilities? No 11/02/18 8:22am 11/03/2018 [facility] Functional Status No Data Provided for This Section
--- OUTSIDE RECORDS SUMMARY | 2019-04-24 16:04 | XMS REPORT | Summary of Care ---
Author Author [facility] Organization [facility] Address Unknown Phone Unavailable Encounter HANK Avitia(LANDON) [id number] Date(s): 07/27/17 - 07/27/17 [facility] [address] [address]- [phone] Discharge Disposition: Home or Self Care Attending Physician: Lucien Arshad MD Referring Physician: Lucien Arshad MD Vital Signs Most recent to 1 2 oldest [Reference Range]: Height 182.88 cm (07/27/17 1:08 PM) Blood Pressure 154/89 mmHg 157/92 mmHg [90-140/60-90 mmHg] *HI* *HI* (07/27/17 2:01 PM) (07/27/17 1:08 PM) Respiratory Rate 17 BRMIN 18 BRMIN [14-20 BRMIN] (07/27/17 2:01 PM) (07/27/17 1:08 PM) Peripheral Pulse 82 bpm 88 bpm Rate [60-100 bpm] (07/27/17 2:01 PM) (07/27/17 1:08 PM) Weight 125 kg (07/27/17 1:08 PM) Body Mass Index 37.37 m2 (07/27/17 1:08 PM) Problem List No data available for this section Allergies, Adverse Reactions, Alerts Substance Reaction Severity Status NKDA Active Medications aspirin 81 mg tablet, enteric coated 81 mg=1 tab, PO, Daily, # 90 tab, 3 Refill(s) Start Date: 07/27/17 Status: Ordered carvedilol 6.25 mg oral tablet 6.25 mg=1 tab, PO, BID, 0 Refill(s) Start Date: 07/27/17 Status: Ordered clopidogrel 75 mg oral tablet 75 mg=1 tab, PO, Daily, 0 Refill(s) Start Date: 07/27/17 Status: Ordered Crestor 40 mg oral tablet 40 mg=1 tab, PO, Bedtime, # 30 tab, 0 Refill(s) Start Date: 07/27/17 Stop Date: 08/26/17 Status: Ordered hydrochlorothiazide 12.5 mg, PO, Daily, 0 Refill(s) Start Date: 07/27/17 Status: Ordered ramipril 10 mg oral capsule 10 mg=1 cap, PO, Daily, 0 Refill(s) Start Date: 07/27/17 Status: Ordered terazosin 5 mg oral capsule 5 mg=1 cap, PO, Bedtime, 0 Refill(s) Start Date: 07/27/17 Status: Ordered Results No data available for this section Immunizations No data available for this section Procedures Procedure Date Related Diagnosis Body Site Injection procedure for hip arthrography; 07/27/17 without anesthesia Social History No data available for this section Assessment and Plan No data available for this section
[2019-04-24 16:05] LABS: POTASSIUM 2.7 mmol/L (3.5-5.1)
--- NOTE | 2019-04-24 16:51 | Diagnostic Imaging Report ---
Chest, 2 views, 04/24/2019. History: Fever. Comparison: 10/31/2018. Findings: The cardiomediastinal silhouette and pulmonary vasculature are within normal limits. The lungs are clear without evidence of consolidation or pleural effusion. Median sternotomy wires, CABG clips, and degenerative changes throughout the thoracic spine are again noted. There are no acute osseous or soft tissue abnormalities. Impression: No acute cardiopulmonary abnormality. Signed by: Giovani Cole on 04/24/2019 4:47 PM
[2019-04-24] MEDS ORDERED: IBUPROFEN 600 MG TAB PO STA (17:19)
[2019-04-24] MEDS ORDERED: POTASSIUM CHLORIDE 20 MEQ TAB CR PO SCH (17:30)
[2019-04-24 17:47] LABS: BILIRUBIN,URINE SMALL (NEGATIVE); CLARITY,URINE CLEAR (CLEAR); COLOR,URINE YELLOW (YELLOW); KETONES,URINE TRACE (NEGATIVE); LEUKOCYTE ESTERASE ,URINE MODERATE (NEGATIVE); NITRITE,URINE NEGATIVE (NEGATIVE); URINE UROBILINOGEN 1 mg/dL (0.2 - 1)
[2019-04-24 17:50] LABS: PROTEIN,URINE DIPSTICK 3+ (NEGATIVE)
[2019-04-24 17:57] LABS: BACTERIA,URINE RARE /HPF; EPITHELIAL CELLS,URINE FEW /LPF
[2019-04-24] MEDS ORDERED: CEFTRIAXONE SOD 1 GM VIAL IV ONE (18:15)
[2019-04-24] MEDS ORDERED: CEFTRIAXONE SOD 1 GM/NS 50 ML 50 ML IV ONE (18:30)
[2019-04-24] MEDS: SODIUM CHLORIDE 0.9% 1000ML 1,000 ML IV SCH ×2 (19:22→20:54)
[2019-04-24] MEDS ORDERED: ACETAMINOPHEN 1000 MG/100 ML IV STA (19:27)
[2019-04-24] MEDS ORDERED: ACETAMINOPHEN 1000 MG/100 ML 100 ML IV ONE (19:29)
--- OUTSIDE RECORDS SUMMARY | 2019-04-24 20:03 | XMS REPORT | Continuity of Care Document ---
Author Author [facility] [employer] Organization [facility] [email or web address] Address Unknown Phone Unavailable Care Team Providers Care Activities Concierge Name Role Phone [facility] [email or web address] Unavailable Unavailable Problems Problem Status Onset Date Classification Date Reported Comments Source LT HIP OA Active 02/02/2019 [facility] M25.552 LEFT HIP PAIN Active 07/25/2017 [facility] [employer] M25.552 Active 07/25/2017 [facility] LEFT HIP Active 07/11/2017 [facility] [place] Calculus of right kidney Active 05/13/2014 Problem 11/03/2018 [facility] Renal colic on right side Active 05/13/2014 Problem 11/03/2018 [facility] Myocardial infarction (disorder) Active 08/08/2010 Problem 03/09/2019 [...] Spine Docusate Sodium 50 MG / sennosides, PRISON 8.6 MG Oral Tablet 1 tab, Route: [...] Longer Active 03/07/2019 [facility] Ergocalciferol 48215 UNT Oral Capsule 50,000 IntlUnit, 1 cap, [...] Mg Oral Every 12 Hours Active 10/31/2018 [facility] Gabapentin 300 Mg Capsule, 300 Mg Oral Twice A Day Active 10/31/2018 [facility] Niacin (Niaspan) 1,000 Mg Tab.er.24h, 1000 Mg Oral Bedtime Active 10/31/2018 [facility] Tylenol #4 , 1-2 Tab Oral Every 4 Hours as needed for Pain Active 10/31/2018 [facility] terazosin 5 mg oral capsule 5 mg=1 [...] Tablet, 1 Tab Oral Daily Active 05/13/2014 [facility] Hydrochlorothiazide 25 Mg Tablet, 25 Mg Oral Daily Active 05/13/2014 [facility] Clopidogrel Bisulfate (Plavix) 75 Mg Tablet, 75 Mg Oral Daily Active 03/07/2012 [facility] Fenofibrate (Lipofen) 150 Mg Capsule, 150 Mg Oral Daily Active 03/07/2012 [facility] Metoprolol Succinate (Toprol Xl) 25 Mg Tab.sr.24h, 25 Mg Oral Daily Active 03/07/2012 [facility] Nitrofurmacr , 100 Mg as needed Active 03/07/2012 [facility] Simvastatin 20 Mg Tablet, 1 Tab Oral Daily Active 03/07/2012 [facility] Plavix , Active 11/01/2011 [facility] Propoxyphene/Acetaminophen (Darvocet-N 100 Tablet) 1 Each Tablet, 1 Tab Oral As Needed Active 11/01/2011 [facility] Simvastatin 5 Mg Tablet, Active 11/01/2011 [facility] Aspirin (Ecotrin) 81 Mg Tablet.dr Bedtime Active [facility] Carvedilol (Coreg Cr*) 10 Mg Capcr Twice A Day Active [facility] Clopidogrel Bisulfate (Plavix) 75 Mg Tablet Daily Active [facility] Hydrochlorothiazide 25 Mg Tablet Daily Active [facility] Ramipril 5 Mg Capsule Twice A Day Active [facility] Rosuvastatin Calcium (Crestor) 20 Mg Tablet Bedtime Active [facility] Terazosin Hcl 5 Mg Capsule Twice A Day Active [facility] Allergies, Adverse Reactions, Alerts No Known Medication [...] count (number/volume) 3.63 4.8 - 10.8 10/31/2018 [facility] Blood erythrocytes automated count (number/volume) 4.65 4.3 - 5.7 10/31/2018 [facility] Blood hemoglobin measurement (moles/volume) 13.3 14.0 - 18.0 10/31/2018 [facility] Automated blood hematocrit (volume fraction) 40.0 38.2 - 49.6 10/31/2018 [facility] Automated erythrocyte mean corpuscular volume 86.0 81 - 99 10/31/2018 [facility] Automated erythrocyte mean corpuscular hemoglobin (mass per erythrocyte) 28.6 28 - 32 10/31/2018 [facility] Automated erythrocyte mean corpuscular hemoglobin concentration measurement (mass/volume) 33.3 31 - 35 10/31/2018 [facility] RDW BldCo-Rto 12.3 11.7 - 14.4 10/31/2018 [facility] Automated blood platelet count (count/volume) 147 140 - 360 10/31/2018 [facility] Automated blood segmented neutrophil count as percentage of total leukocytes 50.4 38.7 - 80.0 10/31/2018 [facility] Automated blood lymphocyte count as percentage ot total leukocytes 36.6 18.0 - 39.1 10/31/2018 [facility] Automated blood monocyte count as percentage of total leukocytes 8.5 4.4 - 11.3 10/31/2018 [facility] Automated blood eosinophil count as percentage of total leukocytes 2.8 0.0 - 6.0 10/31/2018 [facility] Automated blood basophil count as percentage of total leukocytes 1.1 0.0 - 1.0 10/31/2018 [facility] IM GRANULOCYTES % 0.6 0.0 - 1.0 10/31/2018 [facility] Automated blood neutrophil count 1.8 2.1 - 6.9 10/31/2018 [facility] Blood lymphocytes count (number/volume) 1.3 1.0 - 3.2 10/31/2018 [facility] Blood monocytes automated count (number/volume) 0.3 0.2 - 0.8 10/31/2018 [facility] Automated blood eosinophil count 0.1 0.0 - 0.4 10/31/2018 [facility] Automated blood basophil count (count/volume) 0.0 0.0 - 0.1 10/31/2018 [facility] Absolute Immature Granulocyte (auto 0.02 0 - 0.1 10/31/2018 [facility] Prothrombin time (PT) in platelet poor plasma by coagulation assay 12.4 11.9 - 14.5 10/31/2018 [facility] INR in Platelet poor plasma by Coagulation assay 0.88 10/31/2018 [facility] Activated partial thromboplastin time (aPTT) in platelet poor plasma bycoagulation assay 25.1 23.8 - 35.5 10/31/2018 [facility] Serum or plasma sodium measurement (moles/volume) 135 136 - 145 10/31/2018 [facility] Serum or plasma potassium measurement (moles/volume) 3.5 3.5 - 5.1 10/31/2018 [facility] Serum or plasma chloride measurement (moles/volume) 101 98 - 107 10/31/2018 [facility] Serum or plasma carbon dioxide, total measurement (moles/volume) 28 22 - 29 10/31/2018 [facility] Serum or plasma anion gap 9.5 8 - 16 10/31/2018 [facility] Serum or plasma urea nitrogen measurement (mass/volume) 22 7 - 26 10/31/2018 [facility] Serum or plasma creatinine measurement (mass/volume) 0.93 0.72 - 1.25 10/31/2018 [facility] Serum or plasma urea nitrogen/creatinine mass ratio 24 6 - 25 10/31/2018 [facility] Estimated glomerular filtration rate (GFR) determination > 60 60 10/31/2018 [facility] Glucose measurement 152 74 - 118 10/31/2018 [facility] Serum or plasma calcium measurement (mass/volume) 9.6 8.4 - 10.2 10/31/2018 [facility] Pathology Reports No Data Provided for This [...] appearance of left total hip arthroplasty. 03/06/2019 [facility] Hip 1 view DX EXAM: Hip 1 [...] left total hip replacement sizing device.. 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 [...] CAM deformity of the left femur. 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 INDICATION: pain in left hip - hip [...] Technically successful fluoroscopy-guided left hip injection. 07/27/2017 [facility] Consultation Notes No Data Provided for This [...] Provider ADM Date DC Date Status Source [facility] Orthopedic community health Spine [facility] Outpatient [id number] [facility] MANUEL 07/27/2017 07/28/2017 [facility] [id number] RITA TIRADO DO 10/11/2018 [facility] Discharged Inpatient (obs) [id number] RICH SANDERS MD 11/02/2018 11/03/2018 [facility] Orthopedic community health [facility] Inpatient [id number] Saleem Edita 03/06/2019 03/07/2019 [facility] Procedures Procedure Code Date Perfomer Comments Source Fusion of joint of cervical spine by anterior approach for deformity of cervical spine [id number] 11/02/2018 [facility] Anterior cervical discectomy [id number] 11/02/2018 [facility] X-ray of chest, two views [id number] 10/31/2018 [facility] Magnetic resonance imaging of cervical spine without contrast [id number] 10/11/2018 [facility] Injection procedure for hip arthrography; without anesthesia [id number] 07/27/2017 [facility] CABG x 3 - Coronary artery bypass grafts x 3 [id number] 08/08/2010 [facility] Cystoscopy<sup>1</sup> [id number] removal of kidney stonesvx2 [facility] Assessment and Plan Assessment and Plan Date Source Extracted from:Title: Clinical Document Author: Vinay Walls Date: 03/07/19 DISCHARGE SUMMARY DATE OF ADMISSION: 03/06/19 DATE OF DISCHARGE: 03/07/19 ADMITTING PHYSICIAN: Saleem Kohler MD [facility] AD[facility] DIAGNOSIS: Hip Osteoarthritis DISCHARGE DIAGNOSIS: Same SECONDARY DIAGNOSES: Acute blood loss anemia, see admission history and physical for past medical history Surgical Procedures: 03/06/19 13:51 LEFT TOTAL HIP ARTHROPLASTY [id number] Primary Surgeon: Saleem Kohler MD (Service: ORT) HOSPITAL [...] otherwise instructed. 7. Call Dr. Kohler' office [phone] for a follow-up appointment next week. Extracted from:Title: Clinical Document Author: Vinay Walls Date: 03/07/19 Ortho Progress Note - Adult Reconstruction Dr. Kohler Surgical Procedures: 03/06/19 13:51 LEFT TOTAL HIP ARTHROPLASTY [id number] Primary Surgeon: Saleem Kohler MD (Service: ORT) [...] of time. 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 [...] received one opioid medication prescription for #50 [place] 7.5/325mg tablets in October 2018 following his [...] reveals sinus rhythm with PVCs, old anterior WI and nonspecificT wave abnormalities -Echocardiogram from 01/12/2019 revealsleft ventricular hypertrophy, EF of 35 to 40%, trace mitral regurgitation, trace Tricuspid regurgitation and trace to mild pulmonic regurgitation -Stress test01/17/2019 reveals a small inferior defect consistent with scar, small anteriorseptal defect consistent with a scar no active ischemiaand diastolic ejection fraction of 41% withanterior and septal hypokinesis -Outpatient training and quality manager: -Revised cardiac index score is2 thus [...] perioperatively 8.BPH (benign prostatic hyperplasia)(N40.0) continue terazosin [facility] hospitalist is a strategic planning consultant, please call [phone] with questions or concerns. 03/07/2019 [facility] Plan of Care Plan of Care Date Source Discharge Date 11/03/18 1:07pm Disposition HOME, SELF-CARE Instructions/Education Provided Post Operative Pain Prescriptions See Medication Section Referrals RICH SANDERS MD (Neurology) Order Date: 7-10 Days Entered Date: 11/03/2018 12:06pm Address: [address] [place] [address] [address] [place] [address] Additional Instructions/Education MAY SHOWER SEE DR. SANDERS'S INSTRUCTIONS LEAVE STERILE STRIPS IN PLACE TAKE MEDICINE PRESCRIBED NOTIFY DR. SANDERS FOR A FEVER GREATER THAN 101, INCREASED PAIN NOT RELIEVED BY PAIN MEDICINE, ANY PUS OR FOUL ODOR FROM INCISION SITE 11/03/2018 [facility] Social History Social History Date Source Social [...] 05/13/2014 6:00am Not Applicable Not Applicable 11/03/2018 [facility] Family History No Data Provided for This Section Advance Directives Order Name Results Value Date Source Advance Directives Advance Directives Directive Response Recorded Date/Time Does the patient have an advance directive? No 11/02/18 3:22pm If yes, is advance directive on file with [facility]? No 11/02/18 8:22am If not on file with [facility] will patient provide a copy? No 11/02/18 8:22am Do you have a Directive to Physician? No 10/31/18 12:50pm Do you have a Medical Power of Agent Ticketing Gate? No 10/31/18 12:50pm Do you have an [...] rights and responsibilities? No 11/02/18 8:22am 11/03/2018 [facility] Functional Status No Data Provided for This Section
[2019-04-24 20:24] VITALS: BP 127/64
[2019-04-24 20:26] VITALS: BP 127/64
[2019-04-24] MEDS ORDERED: SODIUM CHLORIDE 0.9% 1000ML 1,000 ML ONE (20:48)
[2019-04-24 23:54] VITALS: BP 109/53
[2019-04-25] VITALS (8 sets, daily range): BP systolic 98–124; BP diastolic 49–68
[2019-04-25] MEDS ORDERED: ACETAMINOPHEN 325 MG TAB ONE ×2 (00:54→06:24)
[2019-04-25] MEDS: ACETAMINOPHEN 325 MG TAB PO PRN ×4 (01:00→22:59)
[2019-04-25] MEDS: IBUPROFEN 400 MG TAB PO PRN ×2 (03:32→13:42)
--- NOTE | 2019-04-25 03:40 | NUR ---
Patient fever is elevated to 101.6. Paged Dr. Mendoza twice with no response. Paged Dr. Ott and received new order for motrin.
[2019-04-25] MEDS ORDERED: SODIUM CHLORIDE 0.9% 1000ML 1,000 ML ONE ×2 (03:55→17:00)
[2019-04-25] MEDS ORDERED: CEFTRIAXONE SOD 1 GM/NS 50 ML 50 ML IV SCH (09:00)
[2019-04-25] MEDS ORDERED: CEFTRIAXONE SOD 1 GM VIAL IV SCH (09:00)
[2019-04-25] MEDS: CEFTRIAXONE SOD 1 GM/NS 50 ML 50 ML IV SCH (10:19)
[2019-04-25] MEDS: POTASSIUM CHLORIDE 20 MEQ TAB CR PO SCH (10:19)
[2019-04-25] MEDS ORDERED: ACETAMINOPHEN 325 MG TAB PO PRN (12:00)
[2019-04-25] MEDS: LEVOFLOXACIN 500MG/D5W 100ML 100 ML IV SCH (12:55)
--- NOTE | 2019-04-25 13:40 | NUR ---
patient Temp was 103. Dr Lang here for rounds, new orders recvd, blood cultures X2, motrin given, keep monitoring
--- NOTE | 2019-04-25 14:24 | NUR ---
Bladder scan done 59cc
--- NOTE | 2019-04-25 15:43 | Diagnostic Imaging Report ---
CT of the abdomen and pelvis, without contrast. History: Left flank pain. Comparison: None available. Technique: Multidetector CT scanning of the abdomen and pelvis was performed from the level of the lung bases to the inferior pubic rami after intravenous and oral administration of contrast. Coronal and sagittal multiplanar reformations were obtained. RADIATION DOSE: Total DLP: 828.37 mGy*cm Dose modulation, iterative reconstruction, and/or weight based adjustment of the mA/kV was utilized to reduce the radiation dose to as low as reasonably achievable. FINDINGS: The lung bases are clear. The imaged portion of the heart demonstrates no significant abnormalities. The liver is normal in size and attenuation on this noncontrast enhanced examination. The gallbladder is unremarkable. There is no biliary ductal dilatation. The stomach, spleen, pancreas, and bilateral adrenal glands demonstrate an unremarkable noncontrast appearance. The kidneys are normal in size and location. There is a 12 mm stone identified within the left renal pelvis. There are additional stones identified conforming to the left renal calyces compatible with developing/residual staghorn calculus. There is mild fullness of the left renal collecting system without evidence for true intrarenal hydronephrosis. There is mild perinephric stranding present. There is a punctate nonobstructing stone identified within the interpolar region of the right kidney. There is an additional nonobstructing 7 mm stone identified within the inferior pole the right kidney. The ureters are normal course and caliber. Please note artifact from left hip arthroplasty limits evaluation of the pelvis. Allowing for limitations, the urinary bladder appears unremarkable. The prostate is not well evaluated. The abdominal aorta is normal course and caliber with minimal atherosclerotic calcifications. The IVC is normal in caliber. Please note evaluation the bowel is limited without the use of enteric contrast material. The visualized loops of small and large bowel demonstrate no evidence of obstruction or inflammation. The appendix is visualized and appears unremarkable. There is no ascites or peritoneal free air. No abnormally enlarged lymph nodes are identified within the abdomen or pelvis. Small bilateral fat-containing hernias noted. There are postsurgical changes from left hip arthroplasty. The osseous structures demonstrate no evidence for acute fracture or destructive process. The extra peritoneal soft tissues are unremarkable. IMPRESSION: 12 mm stone identified within the left renal pelvis. Additional stones identified conforming to the left renal calyces compatible with developing/residual staghorn calculus. There is mild fullness of the left renal collecting system without evidence for true intrarenal hydronephrosis. Non-obstructing right-sided nephrolithiasis as detailed above. Signed by: Dr. Brad Whitmore MD on 04/25/2019 3:39 PM
[2019-04-25] MEDS: RAMIPRIL 5 MG CAP PO SCH (17:00)
[2019-04-25] MEDS: CARVEDILOL 3.125 MG TAB PO SCH (17:00)
[2019-04-25] MEDS: TERAZOSIN HCL 5 MG CAP PO SCH (17:00)
[2019-04-25] MEDS ORDERED: CARVEDILOL 10 MG CAPCR PO SCH (17:00)
[2019-04-25] MEDS: SODIUM CHLORIDE 0.9% 1000ML 1,000 ML IV SCH (17:09)
--- NOTE | 2019-04-25 18:55 | NUR ---
Received report from previous nurse. Call light within reach. Patient in bed. No pain or distress.
--- NOTE | 2019-04-25 20:08 | Consultation ---
DATE OF CONSULTATION: 04/25/2019 Urology Consultation REASON FOR CONSULTATION: Prostatitis. HISTORY OF PRESENT ILLNESS: Babar Cisneros junior is a 63-year-old man with a previous history of urolithiasis. The patient has had prior stones and status post right ureteroscopy with laser lithotripsy and stone manipulation, insertion of stent on May 15, 2014. The patient also had a left ureteroscopy with laser lithotripsy and insertion of stent on November 11, 2011. The patient has had fevers for the last 5 days. He has had shaking chills and malaise. He has had urinary frequency, urgency, and sensation of incomplete bladder emptying. After several days of these symptoms, he saw his primary care physician and sent him to see Dr. Mendoza, who referred him to the hospital for admission. PAST MEDICAL AND SURGICAL HISTORY: 1. C5-6 cervical discectomy and fusion. 2. Coronary artery disease, status post coronary artery bypass x3. 3. Hypertension. 4. Hyperlipidemia. 5. Status post left total hip arthroplasty. ALLERGIES: NONE KNOWN. CURRENT MEDICATIONS: Please refer to the MAR. SOCIAL HISTORY: The patient denies smoking or ethanol drug use. He used to smoke in the past, but quit. FAMILY HISTORY: Noncontributory to the active urological problems. REVIEW OF SYSTEMS: Discussed as above in history of present illness and past medical history, otherwise negative for all systems. PHYSICAL EXAMINATION: VITAL SIGNS: Current temperature right now is 103. GENERAL: Pleasant 63-year-old man, walking around the room, in no apparent distress, but he is warm. He seems to be having shaking chills. ABDOMEN: Obese, soft, nondistended, and nontender without costovertebral angle tenderness. Kidneys not palpable without hepatosplenomegaly. The patient has a reducible umbilical hernia. GENITOURINARY: Testes are descended bilaterally. Testes and epididymides bilaterally palpably normal. The patient has a normal circumcised male phallus with normal meatus without any lesion. Digital rectal examination is deferred at the present time. For the remaining physical examination systems, please refer to the admission history and physical on the chart and the ERT sheet. LABORATORY STUDIES: White blood cell count is low at 3,630, hemoglobin is low at 13.3, and platelets 147,000. The patient's sodium was slightly low at 135. PT and PTT are unremarkable. Blood and urine cultures are pending. Throat culture is unremarkable. Urine and blood cultures are pending. White blood cell count is 7,100, hemoglobin 12.3, and platelets 173,000. The patient's sodium is low at 134. His potassium is low at 2.7. Creatinine is elevated from his normal baseline at 1.31. Urinalysis significant for 11 to 20 rbc's, 11 to 20 wbc's. There are no urologically significant radiographic studies on the chart at the present time. ASSESSMENT: 1. Acute prostatitis. 2. Hypokalemia. 3. Anemia. 4. Hyponatremia. 5. Incomplete bladder emptying. 6. Acute renal failure. 7. Umbilical hernia that is reducible. 8. Urinary tract infection, present on admission. 9. Possibly urosepsis, present on admission. 10. Microhematuria. 11. Obesity. 12. Previous history of stones. PLAN: 1. I instructed the nurse to obtain one more set of blood cultures right now. 2. I asked the nurse to check a postvoid residual to determine whether we need to place Short catheter in this patient. 3. I will order CT stone protocol due to his previous history of stones. 4. I defer the antibiotic choices to Dr. Mendoza. Thank you very much for involving us in the care of your patient. We will be happy to follow along with you as well as an outpatient. Al Lang MD [place]/[facility] /[id number] cc: DO Katheryn Estrella MD
[2019-04-25] MEDS ORDERED: NON-FORMULARY MEDICATION (Rosuvastatin Calcium (Crestor) 40 MG) PO SCH (21:00)
[2019-04-25] MEDS ORDERED: NON-FORMULARY MEDICATION (Aspirin (Ecotrin) 81 MG) PO SCH (21:00)
[2019-04-25] MEDS: CRESTOR 10MG PO SCH ×2 (21:22→21:31)
[2019-04-25] MEDS: ASPIRIN 81 MG ENTERIC COATED PO SCH ×2 (21:22→21:30)
--- NOTE | 2019-04-25 21:30 | NUR ---
Patient refused medication and said he took his home medication and does not want hospital medication.Patient was educated on why he should take hospital medication and not home medication but he still refused hospital medication.
--- NOTE | 2019-04-25 23:19 | Consultation ---
DATE OF CONSULTATION: REASON FOR CONSULTATION: Sepsis. HISTORY OF PRESENT ILLNESS: This patient is a very pleasant 63-year-old white male, comes in to the emergency room, he was sent for my office with fever, chills, not doing well, night sweats. The patient has been sick for a few days with urgency and frequency. The patient who has been having problem with urgency frequency for the last few days. The patient was sent here to be admitted. The patient who has history of hypertension, hypercholesteremia, and obesity. PAST SURGICAL HISTORY: Trivial bypass, C5-C6 disk surgery, hip replacement done 7 weeks ago, kidney stone before. ALLERGIES: NKA. SOCIAL HISTORY: He denies smoking, drug abuse, or alcohol abuse. FAMILY HISTORY: Noncontributory. REVIEW OF SYSTEMS: GENERAL: He is just not feeling well, having night sweats, feeling really bad. HEENT: There is no headache, visual changes, or hearing changes. GI: There is no nausea, no vomiting, no diarrhea. CARDIAC: There is no arrhythmia. NEURO: No seizure activity. No local weakness. SKIN: There is no rash. JOINT: There is no erythema or edema. There is no pain in the hip, but he does have urgency, frequency, fever, chills, and night sweats, and feeling bad. The patient is sent with diagnosis of pyelonephritis and sepsis. The patient being admitted under care of Dr. Schafer. He is already seen by Dr. Lang. I am asked to see him. I have discussed the case with Dr. Al Lang, on two occasions, also discussed the case with the nursing team care of him. LABORATORY DATA: White count 7.1, hemoglobin 12.3, and hematocrit 35. Sodium 134, potassium 2.7, creatinine 1.3. Lactic acid was 8. Liver enzyme within normal limit. Total bilirubin was 1.4. Blood cultures, urine cultures are pending. PHYSICAL EXAMINATION: GENERAL: He is currently alert, oriented, does not seem to be in acute distress. VITAL SIGNS: Temperature of 102.4, heart rate of 61, respiration of 18, and blood pressure on admission 112/55. HEENT: Not icteric. NECK: Supple. CHEST: Few crackles at the bases. HEART: S1, S2. No S3, S4, or no murmur. ABDOMEN: Soft. Bowel sounds present. No tenderness. EXTREMITIES: No edema. SKIN: No rash. IMPRESSION: 1. Pyelonephritis. The patient was started on Rocephin and Levaquin. Await blood cultures, urine cultures. Obtain CT scan. 2. A scan of the bladder shows that he has a 59 mL. Discussed with Urology. No Short, but Flomax b.i.d. and Pyridium t.i.d. 3. Hypertension, hypercholesteremia, history of kidney stone. Await workup. 4. Dehydration. Acute kidney injury. Agree with IV fluids. We will follow. MD BRAD Goode/MODPrimo /[id number]
[2019-04-26] VITALS (7 sets, daily range): BP systolic 94–145; BP diastolic 49–76
[2019-04-26] MEDS: SODIUM CHLORIDE 0.9% 1000ML 1,000 ML IV SCH ×3 (01:05→19:42)
[2019-04-26] MEDS ORDERED: SODIUM CHLORIDE 0.9% 1000ML 1,000 ML ONE ×3 (01:09→19:44)
[2019-04-26 05:35] LABS: BASOPHILS % 0.2 % (0.0-1.0); EOSINOPHILS % 0.2 % (0.0-6.0); HEMATOCRIT 30.2 % (38.2-49.6); HEMOGLOBIN 10.3 g/dL (14.0-18.0); LYMPHOCYTES # (AUTO) 1.2 (1.0-3.2); LYMPHOCYTES % 13.9 % (18.0-39.1); MEAN CORPUSCULAR HEMOGLOBIN 28.8 pg (28-32); MEAN CORPUSCULAR HGB CONC 34.1 g/dL (31-35); MEAN CORPUSCULAR VOLUME 84.4 fL (81-99); MONOCYTES # (AUTO) 1.5 (0.2-0.8); MONOCYTES % 16.8 % (4.4-11.3); NEUTROPHILS % 67.2 % (38.7-80.0); PLATELET COUNT 147 x10e3/uL (140-360); RED BLOOD COUNT 3.58 x10e6/uL (4.3-5.7); RED CELL DISTRIBUTION WIDTH 13.2 % (11.7-14.4)
[2019-04-26 05:55] LABS: ANION GAP 12.7 mmol/L (8-16); BLOOD UREA NITROGEN 17 mg/dL (7-26); BUN/CREATININE RATIO 16 (6-25); CALCIUM 9.5 mg/dL (8.4-10.2); CARBON DIOXIDE 27 mmol/L (22-29); CHLORIDE 99 mmol/L (98-107); CREATININE, SERUM 1.05 mg/dL (0.72-1.25); EST GLOMERULAR FILTRATION RATE > 60 ML/MIN (60-); GLUCOSE 100 mg/dL (74-118); SODIUM 136 mmol/L (136-145)
[2019-04-26 06:00] LABS: POTASSIUM 2.7 mmol/L (3.5-5.1)
[2019-04-26] MEDS: ACETAMINOPHEN 325 MG TAB PO PRN (07:11)
--- NOTE | 2019-04-26 07:19 | NUR ---
Called Dr. Alli Ott at 6:30 am and he called back now about patient having potassium of 2.7. Dr. Alli Ott ordered KCl 20 mEq PO now and ever 2 hour x 4 and BMP
--- NOTE | 2019-04-26 07:20 | NUR ---
Gave report to oncoming nurse. Patient in bed. Call light within reach.
--- NOTE | 2019-04-26 07:45 | NUR ---
Post void bladder scan done 241 ml, notified Dr Lang, he stated he will come and put 18 fr catheter
[2019-04-26] MEDS ORDERED: POTASSIUM CHLORIDE 20 MEQ TAB CR PO ONE (08:00)
[2019-04-26] MEDS: RAMIPRIL 5 MG CAP PO SCH ×2 (08:56→17:00)
[2019-04-26] MEDS: CARVEDILOL 3.125 MG TAB PO SCH ×2 (08:56→17:00)
[2019-04-26] MEDS: HYDROCHLOROTHIAZIDE 25 MG TAB PO SCH (08:57)
[2019-04-26] MEDS: TERAZOSIN HCL 5 MG CAP PO SCH ×2 (08:57→17:00)
[2019-04-26] MEDS: CLOPIDOGREL BISULFATE 75 MG TAB PO SCH (09:00)
--- NOTE | 2019-04-26 09:22 | NUR ---
Dr RADER in room, put the Short catheter 18Fr coude, patient tolerated well. 425ml of urine output noted
[2019-04-26] MEDS: CEFTRIAXONE SOD 1 GM/NS 50 ML 50 ML IV SCH (09:55)
[2019-04-26] MEDS: LEVOFLOXACIN 500MG/D5W 100ML 100 ML IV SCH (12:30)
[2019-04-26] MEDS: POTASSIUM CHLORIDE 20 MEQ TAB CR PO SCH (12:30)
--- NOTE | 2019-04-26 14:48 | Progress Note ---
DATE: SUBJECTIVE: Mr. Cisneros continued to do okay, improving slowly, but he continued to have fever. There are no new complaints. REVIEW OF SYSTEMS: HEENT: Negative. PULMONARY: Negative. CARDIAC: Negative. PHYSICAL EXAMINATION: GENERAL: Continued to have fever. HEENT: Not icteric. NECK: Supple. CHEST: Clear. HEART: S1, S2. No murmurs. ABDOMEN: Soft. LABORATORY DATA: Unfortunately the urine culture was not done before the antibiotic even though it was stressed with antibiotic. IMPRESSION: 1. Sepsis, present on admission. 2. Urinary tract infection. 3. Pyelonephritis. No pathogen. On Rocephin, levofloxacin, not getting better, we will change to meropenem and reassess. May need to continue meropenem for 2 weeks if he improves with that. MD BRAD Goode/ROWAN /[id number]
--- NOTE | 2019-04-26 14:59 | NUR ---
Nutrition Screen Note RD Recommendation for Physician: - Continue diet as ordered Plan of Care: RD following, monitoring for tolerance and adequacy Nutrition reason for involvement: Nutrition Risk Trigger MST Primary Diagnose(s): Acute prostatitis PMH: hypertension, hypercholesteremia, and obesity Ht: 72in Wt: 282lb BMI: 38.2kg/m2 IBW: 178lb +/- 10% RD Assessment: (04/26) Chart reviewed. Labs and meds reviewed. 63yo M, who was admitted for prostatitis. Visited pt in the room. Pt reported fair appetite. Appetite has decreased since last Tuesday. No complain of nausea or vomiting. LBM 04/25. Pt denied any chewing or swallowing difficulty. Weight has been stable at 280lbs. Will continue to monitor and follow. Current Diet: Cardiac diet Malnutrition Evaluation (04/26/2019) The patient does not meet criteria for a specified degree of malnutrition at this time. Will re-evaluate at follow-up as appropriate. Diet Education Needs Assessment: Diet education not indicated. Nutrition Care Level: low Signed: Katherine Barrera, MS, RD, LD
[2019-04-26] MEDS: MEROPENEM 1GM 100 ML IV SCH ×2 (16:07→22:00)
--- NOTE | 2019-04-26 18:29 | NUR ---
patient resting in bed, alert with no distress, at bed side, afebrile this time
--- NOTE | 2019-04-26 19:37 | NUR ---
Received report from previous nurse. Patient in bed. Call light within reach. Patient in no pain or distress.
[2019-04-27] VITALS (8 sets, daily range): BP systolic 133–150; BP diastolic 63–88
[2019-04-27] MEDS: SODIUM CHLORIDE 0.9% 1000ML 1,000 ML IV SCH ×4 (02:56→20:25)
[2019-04-27] MEDS ORDERED: SODIUM CHLORIDE 0.9% 1000ML 1,000 ML ONE ×2 (04:26→15:52)
[2019-04-27] MEDS: MEROPENEM 1GM 100 ML IV SCH ×3 (06:00→21:13)
--- NOTE | 2019-04-27 07:38 | NUR ---
Gave report to oncoming nurse. call light within reach. patient in bed. no pain or distress. urine is yellow and draining well
[2019-04-27] MEDS: RAMIPRIL 5 MG CAP PO SCH ×2 (09:13→17:50)
[2019-04-27] MEDS: CARVEDILOL 3.125 MG TAB PO SCH ×2 (09:14→17:51)
[2019-04-27] MEDS: HYDROCHLOROTHIAZIDE 25 MG TAB PO SCH (09:14)
[2019-04-27] MEDS: POTASSIUM CHLORIDE 20 MEQ TAB CR PO SCH (09:15)
[2019-04-27] MEDS: TERAZOSIN HCL 5 MG CAP PO SCH ×2 (09:15→17:51)
[2019-04-27] MEDS: FINASTERIDE 5 MG TAB PO SCH (09:16)
[2019-04-27] MEDS: CLOPIDOGREL BISULFATE 75 MG TAB PO SCH (09:16)
[2019-04-27 12:17] LABS: ANION GAP 12.4 mmol/L (8-16); BLOOD UREA NITROGEN 12 mg/dL (7-26); BUN/CREATININE RATIO 14 (6-25); CALCIUM 9.1 mg/dL (8.4-10.2); CARBON DIOXIDE 29 mmol/L (22-29); CHLORIDE 99 mmol/L (98-107); CREATININE, SERUM 0.86 mg/dL (0.72-1.25); EST GLOMERULAR FILTRATION RATE > 60 ML/MIN (60-); GLUCOSE 140 mg/dL (74-118); POTASSIUM 3.4 mmol/L (3.5-5.1); SODIUM 137 mmol/L (136-145)
--- NOTE | 2019-04-27 20:11 | Diagnostic Imaging Report ---
Examination: Single AP view of the chest. COMPARISON: None. INDICATION: Line placement DISCUSSION: Lines/tubes: Right PICC line with tip overlying the SVC. Sternotomy wires. Lungs: No consolidation or edema. Pleura: No pleural effusion or pneumothorax. Heart and mediastinum: The heart and the mediastinum are unremarkable. Bones and soft tissues: No acute bony abnormalities. IMPRESSION: 1. No acute cardiopulmonary abnormalities. Signed by: Dr. Guru Alvarado M.D. on 04/27/2019 8:08 PM
[2019-04-27] MEDS: ASPIRIN 81 MG ENTERIC COATED PO SCH (21:13)
[2019-04-27] MEDS: CRESTOR 10MG PO SCH (21:13)
[2019-04-28] VITALS (8 sets, daily range): BP systolic 127–156; BP diastolic 63–83
[2019-04-28] MEDS: MEROPENEM 1GM 100 ML IV SCH ×3 (05:21→21:12)
[2019-04-28] MEDS: RAMIPRIL 5 MG CAP PO SCH ×2 (08:30→16:50)
[2019-04-28] MEDS: TERAZOSIN HCL 5 MG CAP PO SCH ×2 (08:31→16:50)
[2019-04-28] MEDS: POTASSIUM CHLORIDE 20 MEQ TAB CR PO SCH (08:31)
[2019-04-28] MEDS: CLOPIDOGREL BISULFATE 75 MG TAB PO SCH (08:31)
[2019-04-28] MEDS: HYDROCHLOROTHIAZIDE 25 MG TAB PO SCH (08:31)
[2019-04-28] MEDS: CARVEDILOL 3.125 MG TAB PO SCH ×2 (08:31→16:50)
[2019-04-28] MEDS: FINASTERIDE 5 MG TAB PO SCH (08:31)
[2019-04-28] MEDS ORDERED: SODIUM CHLORIDE 0.9% 1000ML 1,000 ML IV SCH (10:30)
--- NOTE | 2019-04-28 10:30 | NUR ---
Spoke to ADRIANNA Ware regarding home IV abx. He stated Dr. Mendoza is trying to set up thru the office. They do not have approval yet.
[2019-04-28] MEDS ORDERED: SODIUM CHLORIDE 0.9% 1000ML 1,000 ML ONE (10:32)
--- NOTE | 2019-04-28 14:52 | NUR ---
PATIENT ARRIVED IN A WHEELCHAIR FROM OBS ROOM 178- PATIENT IS IN STABLE CONDITION WITH NO S/S OF RESPIRATORY DISTRESS. NO PAIN VOICED. CHIANG INTACT AND DRAINING. PICC LINE IN PLACE AND S/L. CALL LIGHT IS WITHIN REACH, PATIENT INSTRUCTED TO CALL FOR ASSISTANCE NEEDED.
[2019-04-28 15:25] LABS: ANION GAP 11.6 mmol/L (8-16); BLOOD UREA NITROGEN 15 mg/dL (7-26); BUN/CREATININE RATIO 16 (6-25); CALCIUM 9.5 mg/dL (8.4-10.2); CARBON DIOXIDE 31 mmol/L (22-29); CHLORIDE 99 mmol/L (98-107); CREATININE, SERUM 0.95 mg/dL (0.72-1.25); EST GLOMERULAR FILTRATION RATE > 60 ML/MIN (60-); GLUCOSE 169 mg/dL (74-118); POTASSIUM 3.6 mmol/L (3.5-5.1); SODIUM 138 mmol/L (136-145)
--- NOTE | 2019-04-28 19:09 | NUR ---
PATIENT IS IN STABLE CONDITION WITH NO S/S OF RESPIRATORY DISTRESS. NO PAIN VOICED. CHIANG INTACT AND DRAINING. CALL LIGHT IS WITHIN REACH, PATIENT INSTRUCTED TO CALL FOR ASSISTANCE NEEDED. REPORT GIVEN TO ONCOMING NURSE.
[2019-04-28] MEDS: ASPIRIN 81 MG ENTERIC COATED PO SCH (21:12)
[2019-04-28] MEDS: CRESTOR 10MG PO SCH (21:12)
[2019-04-29] VITALS (9 sets, daily range): BP systolic 107–136; BP diastolic 58–79
[2019-04-29] MEDS: MEROPENEM 1GM 100 ML IV SCH (05:35)
[2019-04-29 06:32] LABS: BASOPHILS # (AUTO) 0.1 (0.0-0.1); EOSINOPHILS # (AUTO) 0.2 (0.0-0.4); EOSINOPHILS % 2.8 % (0.0-6.0); HEMATOCRIT 33.7 % (38.2-49.6); HEMOGLOBIN 11.1 g/dL (14.0-18.0); LYMPHOCYTES # (AUTO) 1.6 (1.0-3.2); LYMPHOCYTES % 23.6 % (18.0-39.1); MEAN CORPUSCULAR HEMOGLOBIN 28.2 pg (28-32); MEAN CORPUSCULAR HGB CONC 32.9 g/dL (31-35); MEAN CORPUSCULAR VOLUME 85.8 fL (81-99); MONOCYTES # (AUTO) 0.5 (0.2-0.8); MONOCYTES % 7.5 % (4.4-11.3); NEUTROPHILS # (AUTO) 3.9 (2.1-6.9); NEUTROPHILS % 58.2 % (38.7-80.0); PLATELET COUNT 228 x10e3/uL (140-360); RED BLOOD COUNT 3.93 x10e6/uL (4.3-5.7)
[2019-04-29 06:53] LABS: ANION GAP 11.4 mmol/L (8-16); BLOOD UREA NITROGEN 15 mg/dL (7-26); BUN/CREATININE RATIO 19 (6-25); CALCIUM 9.6 mg/dL (8.4-10.2); CARBON DIOXIDE 30 mmol/L (22-29); CHLORIDE 101 mmol/L (98-107); EST GLOMERULAR FILTRATION RATE > 60 ML/MIN (60-); GLUCOSE 120 mg/dL (74-118); POTASSIUM 3.4 mmol/L (3.5-5.1); SODIUM 139 mmol/L (136-145)
--- NOTE | 2019-04-29 07:15 | NUR ---
PATIENT IN STABLE CONDITION WITH NO S/S OF RESPIRATORY DISTRESS. NO PAIN VOICED. CHIANG INTACT AND DRAINING- URINE: LIGHT YESICA AND CLEAR. CALL LIGHT IS WITHIN REACH, PATIENT INSTRUCTED TO CALL FOR ASSISTANCE NEEDED.
[2019-04-29] MEDS: TERAZOSIN HCL 5 MG CAP PO SCH ×2 (08:15→16:07)
[2019-04-29] MEDS: RAMIPRIL 5 MG CAP PO SCH ×2 (08:15→16:07)
[2019-04-29] MEDS: CARVEDILOL 3.125 MG TAB PO SCH ×2 (08:15→16:07)
[2019-04-29] MEDS: HYDROCHLOROTHIAZIDE 25 MG TAB PO SCH (08:15)
[2019-04-29] MEDS: CLOPIDOGREL BISULFATE 75 MG TAB PO SCH (08:15)
[2019-04-29] MEDS: FINASTERIDE 5 MG TAB PO SCH (08:15)
[2019-04-29] MEDS: POTASSIUM CHLORIDE 20 MEQ TAB CR PO SCH (08:15)
[2019-04-29 08:21] LABS: BAND NEUTROPHILS % (MANUAL) 6 %; LYMPHOCYTES % (MANUAL) 26 % (19-48)
[2019-04-29 08:22] LABS: EOSINOPHILS % (MANUAL) 3 % (0-7); MONOCYTES % (MANUAL) 8 % (3.4-9.0); NEUTROPHILS % (MANUAL) 57 % (40-74)
[2019-04-29 08:23] LABS: PLATELET ESTIMATE ADEQUATE; PLATELET MORPHOLOGY COMMENT NORMAL; RBC MORPHOLOGY COMMENT NORMAL
[2019-04-29] MEDS: CEFEPIME 1GM/NS 0.9% 50 ML 50 ML IV SCH ×2 (13:21→21:12)
[2019-04-29] MEDS ORDERED: POTASSIUM CHLORIDE 10MEQ EA PO NR (14:30)
--- NOTE | 2019-04-29 19:14 | NUR ---
PATIENT IS IN STABLE CONDITION WITH NO S/S OF RESPIRATORY DISTRESS- PATIENT DENIES PAIN. CHIANG INTACT AND DRAINING- URINE CLEAR. CALL LIGHT IS WITHIN REACH, PATIENT INSTRUCTED TO CALL FOR ASSISTANCE NEEDED. BEDSIDE REPORT GIVEN TO ONCOMING NURSE.
[2019-04-29] MEDS: ASPIRIN 81 MG ENTERIC COATED PO SCH (21:12)
[2019-04-29] MEDS: CRESTOR 10MG PO SCH (21:12)
[2019-04-30 00:26] VITALS: BP 112/62
[2019-04-30 00:57] VITALS: BP 112/62
[2019-04-30 05:26] VITALS: BP 127/67
[2019-04-30] MEDS: CEFEPIME 1GM/NS 0.9% 50 ML 50 ML IV SCH ×2 (05:31→08:59)
[2019-04-30 07:35] VITALS: BP 136/85
--- NOTE | 2019-04-30 07:38 | NUR ---
patient resting in bed, Alert with no distress, PICC Line is intact.call light in reach
[2019-04-30 07:45] VITALS: BP 136/85
[2019-04-30] MEDS: RAMIPRIL 5 MG CAP PO SCH (08:58)
[2019-04-30] MEDS: CARVEDILOL 3.125 MG TAB PO SCH (08:59)
[2019-04-30] MEDS: HYDROCHLOROTHIAZIDE 25 MG TAB PO SCH (08:59)
[2019-04-30] MEDS: TERAZOSIN HCL 5 MG CAP PO SCH (08:59)
[2019-04-30] MEDS: CLOPIDOGREL BISULFATE 75 MG TAB PO SCH (08:59)
[2019-04-30] MEDS: FINASTERIDE 5 MG TAB PO SCH (08:59)
[2019-04-30] MEDS: POTASSIUM CHLORIDE 20 MEQ TAB CR PO SCH (08:59)
--- NOTE | 2019-04-30 08:59 | NUR ---
PA of Dr Mendoza here for rounds, ordered to give cefepime dose give it now and patient will be having appointment at DR Mendoza's office today @11:00. Dose given
--- NOTE | 2019-04-30 09:25 | NUR ---
Paged X2 Dr Alli Ott to get d/c order since her antibiotics arranged in Dr Mendoza's office
--- NOTE | 2019-04-30 10:32 | NUR ---
patient urinated @1020 bladder scan done, its 90 cc, patient doesn't complain about any discomfort
--- NOTE | 2019-04-30 10:55 | NUR ---
patient discharged home, Alert with no distress, He Aware about f/up appointment today DR Mendoza's office 1100am, PICC line is patent and dressing is intact, transported via wheelchair to [facility]
== END 2019-04-30 10:45 | disposition home or self-care (01) | DRG 872 ==
LOC: ER 13:59 → IMCU 18:59 → ER 19:47 → OBSVTOIN 04-25 14:31 → MED/SURG2 04-27 14:03 → IMCU 04-27 14:08 → MED/SURG3 04-28 14:48
PROC: 02HV33Z Insertion of Infusion Device into Superior Vena Cava, Percutaneous Approach (ICD-10-PCS; principal; 2019-04-27)
DX: A41.9 Sepsis, unspecified organism (principal); N17.9 Acute kidney failure, unspecified; N13.6 Pyonephrosis; N10 Acute pyelonephritis; E87.1 Hypo-osmolality and hyponatremia; E86.0 Dehydration; I10 Essential (primary) hypertension; N40.0 Benign prostatic hyperplasia without lower urinary tract symptoms; D64.9 Anemia, unspecified; E66.9 Obesity, unspecified; Z68.37 Body mass index [BMI] 37.0-37.9, adult; E87.6 Hypokalemia; E78.00 Pure hypercholesterolemia, unspecified; Z96.649 Presence of unspecified artificial hip joint
CPT/HCPCS: 36415; 36569; 71045; 71046; 74176; 80048; 80053; 81001; 82550; 82553; 83518; 83605; 83880; 84484; 85025; 85610; 85651; 86039; 86140; 86431; 87040; 87070; 87086; 87400; 93005; 96361; 99284; G0378; J0692; J0696; J1956; J7030

== ENCOUNTER 2019-07-25 08:03 | Inpatient (IN) | payer BC ==
[~2019-07-25] VITALS: Ht 182.9 cm; Wt 115.7 kg
[2019-07-25] MEDS ORDERED: CEFTRIAXONE SOD 1 GM/NS 50 ML 50 ML IV ONE (08:22)
[2019-07-25] MEDS ORDERED: GENTAMICIN 80MG/NS 100 ML 200 ML IV ONE (08:34)
--- NOTE | 2019-07-25 09:26 | Diagnostic Imaging Report ---
Abdomen, 1 view. History: Preop, stent removal. Findings: A left double-J internal ureteral stent is present extending from the left kidney to the bladder. Multiple small irregular calculations are projected over the lower pole of the left kidney. A 5 mm calcification is again seen projected over the upper pole of the right kidney. Air is scattered throughout nondilated small and large bowel. There are no masses or abnormal calcifications. The osseous structures are intact. IMPRESSION: Bilateral renal calcifications and left internal ureteral stent. Signed by: Giovani Cole on 07/25/2019 9:23 AM
[2019-07-25] MEDS ORDERED: IOPAMIDOL 300MG/ML 50ML INFUS..BTL IV ONE (10:01)
[2019-07-25] MEDS ORDERED: B&O 60MG R/S 60 MG SUPP PR ONE (10:01)
[2019-07-25] MEDS: D5.45%NS/KCL 20MEQ 1,000 ML IV SCH ×2 (13:50→19:40)
[2019-07-25] MEDS ORDERED: NALOXONE HCL INJ 0.4 MG/ML AMP IV PRN (14:00)
[2019-07-25] MEDS ORDERED: MORPHINE SULFATE 1 MG/ML 30ML PCA IV PRN (14:00)
[2019-07-25] MEDS ORDERED: ONDANSETRON HCL INJ 2MG/ML 2ML 2 MG/ML VIAL IV PRN (14:00)
[2019-07-25] MEDS ORDERED: B&O 60MG R/S 60 MG SUPP PR PRN (14:00)
[2019-07-25] MEDS ORDERED: DIPHENHYDRAMINE HCL 25 MG CAP PO PRN (14:00)
[2019-07-25] MEDS ORDERED: MIDAZOLAM HCL 2 MG/2 ML VIAL ONE (14:30)
[2019-07-25] MEDS ORDERED: FENTANYL CITRATE/PF 100MCG/2 ML INJ ONE (14:30)
[2019-07-25] MEDS ORDERED: ONDANSETRON HCL INJ 2MG/ML 2ML 2 MG/ML VIAL ONE (14:48)
[2019-07-25] MEDS ORDERED: EPHEDRINE SULFATE INJ 50 MG/ML VIAL ONE (14:48)
[2019-07-25] MEDS ORDERED: PROPOFOL IV EMULSION 10 MG/ML 20 ML VIAL ONE (14:48)
[2019-07-25] MEDS ORDERED: DEXAMETHASONE SOD PHOS INJ 4 MG/ML VIAL ONE (14:48)
[2019-07-25] MEDS ORDERED: LIDOCAINE HCL 2% LOCAL INJ 5 ML SDV VIAL INJ ONE (14:48)
[2019-07-25] MEDS ORDERED: KETOROLAC TROMETHAMINE 30 MG/ML VIAL ONE (14:48)
[2019-07-25] MEDS ORDERED: SEVOFLURANE INHAL SOLN 250 ML PEN BTL ONE (14:48)
[2019-07-25 16:07] VITALS: BP 163/82
--- NOTE | 2019-07-25 16:07 | NUR ---
Received patient, lying in bed with eyes closed. Respiration even and unlabored. Short catheter intact with continuous bladder irrigation, noted red color urine to drainage bag. Denies pain at this time.
[2019-07-25 16:32] LABS: BASOPHILS % 0.2 % (0.0-1.0); EOSINOPHILS % 0.4 % (0.0-6.0); HEMATOCRIT 41.6 % (38.2-49.6); HEMOGLOBIN 13.6 g/dL (14.0-18.0); LYMPHOCYTES # (AUTO) 0.9 (1.0-3.2); LYMPHOCYTES % 19.1 % (18.0-39.1); MEAN CORPUSCULAR HEMOGLOBIN 28.4 pg (28-32); MEAN CORPUSCULAR HGB CONC 32.7 g/dL (31-35); MEAN CORPUSCULAR VOLUME 86.8 fL (81-99); MONOCYTES # (AUTO) 0.1 (0.2-0.8); NEUTROPHILS # (AUTO) 3.6 (2.1-6.9); NEUTROPHILS % 77.9 % (38.7-80.0); PLATELET COUNT 139 x10e3/uL (140-360); RED BLOOD COUNT 4.79 x10e6/uL (4.3-5.7); RED CELL DISTRIBUTION WIDTH 13.3 % (11.7-14.4)
[2019-07-25 16:48] LABS: ANION GAP 13.4 mmol/L (8-16); BLOOD UREA NITROGEN 19 mg/dL (7-26); BUN/CREATININE RATIO 22 (6-25); CALCIUM 9.4 mg/dL (8.4-10.2); CARBON DIOXIDE 28 mmol/L (22-29); CHLORIDE 102 mmol/L (98-107); CREATININE, SERUM 0.87 mg/dL (0.72-1.25); EST GLOMERULAR FILTRATION RATE > 60 ML/MIN (60-); GLUCOSE 124 mg/dL (74-118); POTASSIUM 4.4 mmol/L (3.5-5.1); SODIUM 139 mmol/L (136-145)
[2019-07-25 17:00] VITALS: BP 122/75
[2019-07-25] MEDS: DOCUSATE SODIUM 100 MG CAP PO SCH (17:23)
[2019-07-25] MEDS: PHENAZOPYRIDINE HCL 100 MG TAB PO SCH (17:23)
[2019-07-25] MEDS: CEFTRIAXONE SOD 1 GM/NS 50 ML 50 ML IV SCH (17:23)
--- NOTE | 2019-07-25 19:02 | NUR ---
Report given to dust box tender. Awake, alert, tobar catheter intact with continuos bladder irrigation in placed. respiration even and unlabored.
[2019-07-25 20:00] VITALS: BP 113/63
[2019-07-25 20:19] VITALS: BP 122/75
[2019-07-26] VITALS (8 sets, daily range): BP systolic 113–129; BP diastolic 56–63
[2019-07-26] MEDS: D5.45%NS/KCL 20MEQ 1,000 ML IV SCH ×3 (00:15→20:20)
[2019-07-26 06:08] LABS: BASOPHILS % 0.2 % (0.0-1.0); EOSINOPHILS % 0.5 % (0.0-6.0); HEMATOCRIT 37.6 % (38.2-49.6); HEMOGLOBIN 12.4 g/dL (14.0-18.0); LYMPHOCYTES # (AUTO) 1.2 (1.0-3.2); LYMPHOCYTES % 19.8 % (18.0-39.1); MEAN CORPUSCULAR HEMOGLOBIN 28.4 pg (28-32); MEAN CORPUSCULAR VOLUME 86.2 fL (81-99); MONOCYTES # (AUTO) 0.4 (0.2-0.8); MONOCYTES % 6.9 % (4.4-11.3); NEUTROPHILS # (AUTO) 4.4 (2.1-6.9); NEUTROPHILS % 72.4 % (38.7-80.0); PLATELET COUNT 158 x10e3/uL (140-360); RED BLOOD COUNT 4.36 x10e6/uL (4.3-5.7); RED CELL DISTRIBUTION WIDTH 13.4 % (11.7-14.4)
[2019-07-26 06:33] LABS: ANION GAP 12.8 mmol/L (8-16); BLOOD UREA NITROGEN 17 mg/dL (7-26); BUN/CREATININE RATIO 22 (6-25); CALCIUM 8.9 mg/dL (8.4-10.2); CARBON DIOXIDE 25 mmol/L (22-29); CHLORIDE 103 mmol/L (98-107); CREATININE, SERUM 0.79 mg/dL (0.72-1.25); EST GLOMERULAR FILTRATION RATE > 60 ML/MIN (60-); GLUCOSE 136 mg/dL (74-118); POTASSIUM 3.8 mmol/L (3.5-5.1); SODIUM 137 mmol/L (136-145)
--- NOTE | 2019-07-26 07:09 | NUR ---
pt alert resp even and unlabored no distress noted at this time, pt able to make needs known, no c/o pain when asked, pt has CBI infusing at this time, no discomfort when asked , pt also has LEAD FRONT DESK AGENT pump in use, call light in reach, will cont to monitor.
[2019-07-26] MEDS: DOCUSATE SODIUM 100 MG CAP PO SCH ×2 (08:36→16:37)
[2019-07-26] MEDS: PHENAZOPYRIDINE HCL 100 MG TAB PO SCH ×3 (08:36→16:38)
--- NOTE | 2019-07-26 10:26 | Diagnostic Imaging Report ---
Exam: KUB - 2 views Indication: Renal calculus Comparison: KUB of 07/25/2019 Findings: Interval removal of left internal nephroureteral stent. Left lower pole renal calculus measures up to 5 mm. Right upper pole renal calculus measures up to 5 mm. Nonobstructive bowel gas pattern. No free air. The partially visualized lung bases are clear. Postoperative findings of prior CABG. Left total hip arthroplasty hardware. Impression: Interval removal of left internal nephroureteral stent. Left lower pole and right upper pole renal calculi measure up to 5 mm. Signed by: Kimberly Donaldson MD on 07/26/2019 10:22 AM
[2019-07-26] MEDS ORDERED: ONDANSETRON HCL 4 MG ORAL DISINTEGRATING TAB PO PRN (10:45)
--- NOTE | 2019-07-26 11:40 | NUR ---
PT OFF UNIT FOR KUB.
--- NOTE | 2019-07-26 12:10 | NUR ---
PT RETURNED TO UNIT NO DISTRESS NOTED AT THIS TIME. CALL LIGHT IN REACH.
--- NOTE | 2019-07-26 13:50 | NUR ---
DR MINOR NOTIFIED OF KUB RESULTS
[2019-07-26] MEDS: CEFTRIAXONE SOD 1 GM/NS 50 ML 50 ML IV SCH (16:37)
--- NOTE | 2019-07-26 19:29 | NUR ---
REPORT GIVEN TO ONCOMING NURSE, PT STABLE AT SHIFT CHANGE.
[2019-07-27] VITALS: BP 123/59
[2019-07-27 04:00] VITALS: BP 113/55
[2019-07-27 06:14] LABS: BASOPHILS % 0.4 % (0.0-1.0); EOSINOPHILS # (AUTO) 0.1 (0.0-0.4); EOSINOPHILS % 1.3 % (0.0-6.0); HEMATOCRIT 37.8 % (38.2-49.6); HEMOGLOBIN 12.1 g/dL (14.0-18.0); LYMPHOCYTES # (AUTO) 1.6 (1.0-3.2); LYMPHOCYTES % 30.5 % (18.0-39.1); MEAN CORPUSCULAR HEMOGLOBIN 28.3 pg (28-32); MEAN CORPUSCULAR VOLUME 88.5 fL (81-99); MONOCYTES # (AUTO) 0.5 (0.2-0.8); MONOCYTES % 8.6 % (4.4-11.3); NEUTROPHILS # (AUTO) 3.1 (2.1-6.9); NEUTROPHILS % 58.8 % (38.7-80.0); PLATELET COUNT 130 x10e3/uL (140-360); RED BLOOD COUNT 4.27 x10e6/uL (4.3-5.7); RED CELL DISTRIBUTION WIDTH 13.6 % (11.7-14.4)
[2019-07-27 06:35] LABS: ANION GAP 11.8 mmol/L (8-16); BLOOD UREA NITROGEN 12 mg/dL (7-26); BUN/CREATININE RATIO 15 (6-25); CALCIUM 8.8 mg/dL (8.4-10.2); CARBON DIOXIDE 27 mmol/L (22-29); CHLORIDE 106 mmol/L (98-107); CREATININE, SERUM 0.81 mg/dL (0.72-1.25); EST GLOMERULAR FILTRATION RATE > 60 ML/MIN (60-); GLUCOSE 112 mg/dL (74-118); POTASSIUM 3.8 mmol/L (3.5-5.1); SODIUM 141 mmol/L (136-145)
--- NOTE | 2019-07-27 07:00 | NUR ---
RECEIVED PATIENT RESTING IN BED NO S/S OF DISTRESS. BED LOW, WHEELS LOCKED, SIDE RAILS X2, CALL LIGHT IN REACH WILL CONTINUE TO MONITOR PATIENT.
[2019-07-27 08:14] VITALS: BP 119/70
[2019-07-27] MEDS: PHENAZOPYRIDINE HCL 100 MG TAB PO SCH ×2 (08:33→13:19)
[2019-07-27] MEDS: DOCUSATE SODIUM 100 MG CAP PO SCH (08:33)
[2019-07-27 08:41] VITALS: BP 119/70
--- NOTE | 2019-07-27 09:50 | NUR ---
REMOVED PATIENTS CHIANG. CHIANG CATHETER TIP INTACT ON REMOVAL. PATIENT DUE TO VOID.
--- NOTE | 2019-07-27 10:26 | NUR ---
PATIENT HAS VOIDED SINCE CHIANG REMOVAL. SERIAL URINES BEING COLLECTED.
[2019-07-27] MEDS ORDERED: TYLENOL WITH C1 EACH PO (11:16)
[2019-07-27] MEDS ORDERED: CEFTIN PO (11:17)
[2019-07-27] MEDS ORDERED: DITROPAN XL5 MG PO (11:17)
[2019-07-27 11:44] VITALS: BP 121/70
[2019-07-27] MEDS: D5.45%NS/KCL 20MEQ 1,000 ML IV SCH (13:28)
--- OUTSIDE RECORDS SUMMARY | 2019-07-27 13:55 | XMS REPORT | Summary of Care ---
Author Author Mary Cordoba M.A. Unknown Address [facility] Phone Unavailable Care Team Providers Care Rail Car Operator Name Role Phone DESHAUN PALMA M.D. 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 Quantity: 60 LOUIE Barney, DESHAUN * Start : 07-Mar-2019 Active Allergies and Adverse Reactions Name Dates Details No Known Drug Allergies (Allergy) Status: Active Past Medical History Name Dates Details History of arthritis (V13.4, Z87.39) Status: Resolved History of back pain (V13.59, Z87.39) Status: Resolved History of heart disease (V12.50, Z86.79) Status: Resolved History of hypertension (V12.59, Z86.79) Status: Resolved History of kidney stones (V13.01, Z87.442) Status: Resolved Procedures Procedure Dates Details [U] XRAY HIP UNILATERAL MIN 2 VWS LEFT [id number] Date: 09-May-2019 Immunization Name Dates Details Immunizations not documented Social History Name Dates Details Unknown if ever smoked Vital Signs Date Test Result Details No Known Vitals to report Results Date Description Value Details Results not documented Plan of Care Name Dates Details Planned Observations Planned Goals not documented Interventions Provided Labs/Procedures/Imaging* [U] XRAY HIP UNILATERAL MIN 2 VWS LEFT [id number]; To Be Done: 09 May 2019 Instructions Name Dates Details Instructions not documented Encounters Appointment; DESHAUN PALMA M.D. Encounter Diagnosis: Problem not documented On: 23-Jun-2017 15:00 Appointment; SANTY ARGUELLES M.D. Encounter Diagnosis: Problem not documented On: 06-Jul-2017 8:15 Appointment; LINETTE KELLY M.D. Encounter Diagnosis: Problem not documented On: 06-Jul-2017 9:45 Appointment; SANTY ARGUELLES M.D. Encounter Diagnosis: Problem not documented On: 02-Sep-2017 7:30 Appointment; SANTY ARGUELLES M.D. Encounter Diagnosis: Problem not documented On: 29-Mar-2018 9:45 Appointment; DEEP FORMAN P.A. Encounter Diagnosis: Problem not documented On: 29-Mar-2018 9:45 Appointment; LINETTE KELLY M.D. Encounter Diagnosis: Problem not documented On: 13-Apr-2018 8:00 Appointment; DESHAUN PALMA M.D. Encounter Diagnosis: Problem not documented On: 01-Feb-2019 10:45 Appointment; DESHAUN PALMA M.D. Encounter Diagnosis: Problem not documented On: 06-Mar-2019 16:00 Appointment; GANGA BENSON P.A. Encounter Diagnosis: Problem not documented On: 16-Mar-2019 10:30 Appointment; DESHAUN PALMA M.D. Encounter Diagnosis: Problem not documented On: 09-May-2019 13:15
--- NOTE | 2019-07-27 15:18 | NUR ---
NOTIFIED DR. RADER OF PATIENT VOIDING AND URINE CLEAR ORANGE. PATIENT OK TO BE DISCHARGED FROM DR. RADER'S STANDPOINT.
--- NOTE | 2019-07-27 15:55 | NUR ---
PATIENT DISCHARGED FROM FACILITY. PATIENT GATHERED ALL PERSONAL BELONGINGS, DISCHARGE INSTRUCTIONS AND FOLLOW UP INFORMATION. PATIENT LEFT UNIT IN WHEELCHAIR AND WENT HOME VIA PRIVATE AUTO. NO SIGNS OF DISTRESS WHEN LEAVING FACILITY.
--- NOTE | 2019-09-11 04:26 | Operative Report ---
DATE OF PROCEDURE: 07/25/2019 SURGEON: Al Lang MD PREOPERATIVE DIAGNOSES: 1. Left nephrolithiasis. 2. Left indwelling ureteral stent. 3. Obstructive BPH. POSTOPERATIVE DIAGNOSES: 1. Left nephrolithiasis. 2. Left indwelling ureteral stent. 3. Obstructive BPH. 4. Grade 1 cystocele. OPERATIONS PERFORMED: 1. Cystourethroscopy with complicated removal of left indwelling ureteral stent (separate staged procedure for diagnosis of stent). 2. Left complicated extensive ureteroscopy with stone manipulation (separate procedure performed for the left nephrolithiasis done as a staged procedure). 3. Radiological services with supervision and interpretation of ureteroscopy. 4. Interpretation of retrograde ureteropyelography. 5. Supervision of fluoroscopy, no radiologist present. 6. Cystourethroscopy with transurethral resection of prostate utilizing a plasma button electrode (separate procedure performed unrelated to the prior stone surgery. ANESTHESIA: General. COMPLICATIONS: None. CLINICAL SUMMARY: Babar Cisneros is a 63-year-old man with nephrolithiasis. The patient underwent a stent placement in management of his left stone. He is brought to the operating room for the above procedure. He is aware of the risks of bleeding, infection, injury to adjacent structures, need for additional procedures and elected to proceed. The patient also has a right renal stone upon which we planned to perform ESWL. OPERATIVE PROCEDURE IN DETAIL: Informed consent was verified. Babar Cisneros was properly identified and taken to the operating room, placed on the cystoscopy table in supine position. Anesthesia was uneventfully begun. The patient was then carefully gently repositioned in the dorsal lithotomy position and all pressure points were padded. His genitalia were prepared and draped in usual sterile fashion. The cystoscope sheath with the visual obturator in place was atraumatically inserted in the patient's urethra and was guided unremarkably. Urethra through the prostate bed was significant for radially obstructing BPH with kissing lateral lobes. There was a small piece of stone lodged between the lateral lobes. We entered the patient's bladder where panendoscopy revealed grade 2 trabeculations, but no tumors and no suspicious lesions. The stent was emerging from the left ureteral orifice and was not significantly encrusted. A guidewire was then placed alongside the stent and guided to the level of the patient's kidney. The stent was then grasped, completely removed and discarded. Semi-rigid ureteral scope was then placed and guided alongside the guidewire up into the left distal ureter. There were no suspicious lesions. There were no tumors. There were no stones. There was a narrowing area several centimeters proximal to the ureteral orifice and proximal to that there was a wide open ureteral channel. Secondary guidewire was displayed behind. We than placed a secondary guidewire and over this guidewire, brought the ureteroscope up to the level of the patient's kidney. The panendoscopy revealed stones within the lower pole calyx. These appeared to be fragments from prior stone procedures. We grasped the stone fragment, extracted it, and then replaced a secondary guidewire utilizing a double-lumen ureteral catheter. We repeated this process until we cleared the lower pole calyx of all visible stones and only fine sand remained that we could not grasp. Once we were sure that the left kidney was as clear as we can get it with the ureteroscope, we carefully reexamined all calices and noted that the patient was clear. Interpretation of retrograde ureteropyelography, a contrast was instilled in a retrograde fashion in the left hand side by the ureteroscope. There were no suspicious lesions. There were some filling defects in the lower pole calyx that corresponded to the stones that we extracted. There was some mild calyceal blunting, but unsure whether the hydronephrosis could be classified on today's studies. A nonobstructive drainage was observed fluoroscopically. The cystoscope was withdrawn. The continuous-flow resectoscope was atraumatically placed utilizing an obturator. We then proceeded with performing transurethral resection of the prostate. The plasma electrode was utilized to vaporize the prostate from the bladder neck to maneuver past the verumontanum and down the surgical capsule. Pinpoint electrocautery was utilized to achieve hemostasis. Once this all was accomplished, the resectoscope was withdrawn. Continuous irrigation Short was placed. The patient was placed in continuous bladder irrigation with clear efflux. The patient was uneventfully reversed from anesthesia and taken to the recovery room in stable condition. Plans will be to proceed with routine postoperative care and of course lifelong urological followup. Plan will be also to return the patient to the operating room for a right ESWL. Al Lang MD [place]/MODL /[id number] cc: Jones Vick DO
== END 2019-07-27 15:55 | disposition home or self-care (01) | DRG 713 ==
LOC: OR 08:03 → PACU V 13:50 → MED/SURG 16:14
PROC: BT141ZZ Fluoroscopy of Kidneys, Ureters and Bladder using Low Osmolar Contrast (ICD-10-PCS; 2019-07-25)
PROC: 0VB08ZZ Excision of Prostate, Via Natural or Artificial Opening Endoscopic (ICD-10-PCS; principal; 2019-07-25 10:52)
PROC: 0TC18ZZ Extirpation of Matter from Left Kidney, Via Natural or Artificial Opening Endoscopic (ICD-10-PCS; 2019-07-25 10:52)
PROC: 0TP98DZ Removal of Intraluminal Device from Ureter, Via Natural or Artificial Opening Endoscopic (ICD-10-PCS; 2019-07-25 10:52)
DX: N41.9 Inflammatory disease of prostate, unspecified (principal); N13.8 Other obstructive and reflux uropathy; G47.33 Obstructive sleep apnea (adult) (pediatric); I25.10 Atherosclerotic heart disease of native coronary artery without angina pectoris; Z95.1 Presence of aortocoronary bypass graft; N40.1 Benign prostatic hyperplasia with lower urinary tract symptoms; Z96.0 Presence of urogenital implants
CPT/HCPCS: 36415; 74018; 74420; 80048; 83735; 85025; 88300; C1758; C1766; C1769; J0696; J1100; J1580; J1885; J2001; J2250; J2270; J2405; J3010

== ENCOUNTER → 2019-08-07 | Day surgery (SDC) | payer BC ==
[~2019-08-07] MED LIST changes: +CEFTIN PO; +CEFTRIAXONE SOD 1 GM/NS 50 ML 100 ML IV ONE; +DEXAMETHASONE SOD PHOS INJ 4 MG/ML VIAL ONE; +DITROPAN XL5 MG PO; +FENTANYL CITRATE/PF 100MCG/2 ML INJ ONE; +KETOROLAC TROMETHAMINE 30 MG/ML VIAL ONE; +LIDOCAINE HCL 2% LOCAL INJ 5 ML SDV VIAL INJ ONE; +MIDAZOLAM HCL 2 MG/2 ML VIAL ONE; +ONDANSETRON HCL INJ 2MG/ML 2ML 2 MG/ML VIAL ONE; +PROPOFOL IV EMULSION 10 MG/ML 20 ML VIAL ONE; +SEVOFLURANE INHAL SOLN 250 ML PEN BTL ONE; +TYLENOL WITH C1 EACH PO
[2019-08-07 07:13] LABS: ALANINE AMINOTRANSFERASE 20 IU/L (0-55); ALBUMIN 3.5 g/dL (3.5-5.0); ALKALINE PHOSPHATASE 58 IU/L (40-150); ANION GAP 13.9 mmol/L (8-16); BLOOD UREA NITROGEN 23 mg/dL (7-26); BUN/CREATININE RATIO 29 (6-25); CALCIUM 9.5 mg/dL (8.4-10.2); CARBON DIOXIDE 25 mmol/L (22-29); CHLORIDE 104 mmol/L (98-107); EST GLOMERULAR FILTRATION RATE > 60 ML/MIN (60-); GLUCOSE 118 mg/dL (74-118); POTASSIUM 3.9 mmol/L (3.5-5.1); SODIUM 139 mmol/L (136-145)
[2019-08-07 09:26] VITALS: BP 134/73
--- NOTE | 2019-09-13 12:28 | Operative Report ---
DATE OF PROCEDURE: 08/07/2019 SURGEON: Al Lang MD PREOPERATIVE DIAGNOSIS: Right nephrolithiasis. POSTOPERATIVE DIAGNOSIS: Right nephrolithiasis. OPERATIONS PERFORMED: 1. Staged right-sided extracorporeal shockwave lithotripsy (separate procedure not related to the patient's transurethral resection of prostate in anyway). 2. Supervision of fluoroscopy, no radiologist present. ANESTHESIA: General. COMPLICATIONS: None. CLINICAL SUMMARY: Babar Cisneros is a 63-year-old man with nephrolithiasis. He is brought for a staged procedure. He is aware of the risks of bleeding, infection, an injury to adjacent structures, need for additional procedures, and elected to proceed. OPERATIVE PROCEDURE IN DETAIL: Informed consent was verified. Babar Cisneros was properly identified, taken to the operating room, and placed on the lithotripsy table in supine position. Anesthesia was uneventfully begun. The patient's right nephrolithiasis was localized with biplanar fluoroscopy. A total of 3000 shocks were delivered with excellent fragmentation. The patient was then uneventfully reversed from anesthesia and taken to recovery room in stable condition. There were no complications to the procedure. He tolerated the procedure well. Explicit postop instructions were given. We will follow the patient up in the office. Al Lang MD [place]/MODL /[id number] cc: Jones Vick DO
== END | disposition home or self-care (01) ==
LOC: OR 06:00
PROVIDERS: ATTEND Urology
DX: N20.0 Calculus of kidney (principal); N13.30 Unspecified hydronephrosis; N40.3 Nodular prostate with lower urinary tract symptoms; N40.1 Benign prostatic hyperplasia with lower urinary tract symptoms; R39.14 Feeling of incomplete bladder emptying; R35.1 Nocturia; R97.20 Elevated prostate specific antigen [PSA]; N41.1 Chronic prostatitis; K42.9 Umbilical hernia without obstruction or gangrene; N39.41 Urge incontinence; N32.81 Overactive bladder; G47.33 Obstructive sleep apnea (adult) (pediatric); I25.810 Atherosclerosis of coronary artery bypass graft(s) without angina pectoris; I10 Essential (primary) hypertension; Z79.02 Long term (current) use of antithrombotics/antiplatelets; Z79.82 Long term (current) use of aspirin; Z68.34 Body mass index [BMI] 34.0-34.9, adult; Z95.1 Presence of aortocoronary bypass graft
CPT/HCPCS: 36415; 50590; 80053; J0696; J1100; J1885; J2001; J2250; J2405; J2704; J3010

== ENCOUNTER → 2019-10-10 | Outpatient (CLI) | payer BC ==
[~2019-10-10] MED LIST changes: -CEFTRIAXONE SOD 1 GM/NS 50 ML 100 ML IV ONE; -DEXAMETHASONE SOD PHOS INJ 4 MG/ML VIAL ONE; -FENTANYL CITRATE/PF 100MCG/2 ML INJ ONE; -KETOROLAC TROMETHAMINE 30 MG/ML VIAL ONE; -LIDOCAINE HCL 2% LOCAL INJ 5 ML SDV VIAL INJ ONE; -MIDAZOLAM HCL 2 MG/2 ML VIAL ONE; -ONDANSETRON HCL INJ 2MG/ML 2ML 2 MG/ML VIAL ONE; -PROPOFOL IV EMULSION 10 MG/ML 20 ML VIAL ONE; -SEVOFLURANE INHAL SOLN 250 ML PEN BTL ONE
--- NOTE | 2019-10-10 13:27 | Diagnostic Imaging Report ---
Exam: KUB - 2 views Indication: Urinary calculi Comparison: Multiple prior KUBs, most recently of 07/25/2019 Findings: Interval removal of left internal nephroureteral stent. Left lower pole renal calculi again seen, measuring up to 9 mm. Right upper pole calculi measure up to 4 mm. Nonobstructive bowel gas pattern. No free air. No acute osseous injury. Status post left total hip replacement. Phleboliths in the pelvis. Impression: Interval removal of left internal nephroureteral stent. Bilateral renal calculi as above. Signed by: Kimberly Donaldson MD on 10/10/2019 1:24 PM
== END ==
LOC: RAD 13:00
PROVIDERS: ATTEND Urology
DX: N20.0 Calculus of kidney (principal)
CPT/HCPCS: 74018

== ENCOUNTER 2020-09-02 01:21 | Inpatient (IN) | payer BC ==
[~2020-09-02] VITALS: Ht 182.9 cm; Wt 108.9 kg
[2020-09-02] VITALS (9 sets, daily range): BP systolic 116–152; BP diastolic 72–97
[2020-09-02] MEDS ORDERED: KETOROLAC TROMETHAMINE 30 MG/ML VIAL IV PRN ×2 (01:45→11:30)
[2020-09-02 01:48] LABS: BASOPHILS % 0.5 % (0.0-1.0); EOSINOPHILS # (AUTO) 0.1 (0.0-0.4); EOSINOPHILS % 1.9 % (0.0-6.0); HEMATOCRIT 42.5 % (38.2-49.6); LYMPHOCYTES # (AUTO) 1.4 (1.0-3.2); MEAN CORPUSCULAR HEMOGLOBIN 28.9 pg (28-32); MEAN CORPUSCULAR HGB CONC 32.9 g/dL (31-35); MEAN CORPUSCULAR VOLUME 87.8 fL (81-99); MONOCYTES # (AUTO) 0.4 (0.2-0.8); MONOCYTES % 7.3 % (4.4-11.3); NEUTROPHILS # (AUTO) 3.8 (2.1-6.9); PLATELET COUNT 181 x10e3/uL (140-360); RED BLOOD COUNT 4.84 x10e6/uL (4.3-5.7); RED CELL DISTRIBUTION WIDTH 12.7 % (11.7-14.4)
[2020-09-02 01:49] LABS: CLARITY,URINE SL CLOUDY (CLEAR); COLOR,URINE YELLOW (YELLOW); KETONES,URINE NEGATIVE (NEGATIVE); LEUKOCYTE ESTERASE ,URINE NEGATIVE (NEGATIVE); NITRITE,URINE NEGATIVE (NEGATIVE); PROTEIN,URINE DIPSTICK 1+ (NEGATIVE); URINE UROBILINOGEN 1 mg/dL (0.2 - 1)
[2020-09-02] MEDS ORDERED: ONDANSETRON HCL INJ 2MG/ML 2ML 2 MG/ML VIAL IV STA (01:53)
[2020-09-02 01:57] LABS: BACTERIA,URINE FEW /HPF; EPITHELIAL CELLS,URINE RARE /LPF; RBC,URINE 21-50 /HPF (0-5)
[2020-09-02 01:58] LABS: AMORPHOUS SEDIMENT,URINE FEW (FEW)
[2020-09-02 02:07] LABS: ALBUMIN 4.1 g/dL (3.5-5.0); ALBUMIN/GLOBULIN RATIO 1.3 (0.8-2.0); ANION GAP 13.6 mmol/L (8-16); CALCIUM 9.4 mg/dL (8.4-10.2); CREATININE, SERUM 1.24 mg/dL (0.72-1.25); POTASSIUM 3.6 mmol/L (3.5-5.1)
[2020-09-02] MEDS: MORPHINE SULFATE INJ 4 MG/ML INJ 1ML IV PRN ×5 (02:15→19:41)
[2020-09-02] MEDS: SODIUM CHLORIDE 0.9% 1000ML 1,000 ML IV SCH ×3 (04:37→21:34)
[2020-09-02] MEDS: CEFTRIAXONE SOD 1 GM/NS 50 ML 50 ML IV SCH (09:24)
[2020-09-02] MEDS ORDERED: OXYBUTYNIN CHLORIDE XL 5 MG TAB PO PRN (11:45)
[2020-09-02] MEDS: RAMIPRIL 5 MG CAP PO SCH (17:12)
[2020-09-02] MEDS ORDERED: NON-FORMULARY MEDICATION (Rosuvastatin Calcium (Crestor) 40 MG) PO SCH (21:00)
[2020-09-02] MEDS: CRESTOR 10MG PO SCH (21:33)
[2020-09-03] VITALS (7 sets, daily range): BP systolic 104–135; BP diastolic 58–92
[2020-09-03] MEDS: MORPHINE SULFATE INJ 4 MG/ML INJ 1ML IV PRN ×3 (01:05→11:36)
[2020-09-03 05:30] LABS: BASOPHILS % 0.5 % (0.0-1.0); EOSINOPHILS # (AUTO) 0.1 (0.0-0.4); EOSINOPHILS % 1.5 % (0.0-6.0); HEMATOCRIT 37.8 % (38.2-49.6); HEMOGLOBIN 12.7 g/dL (14.0-18.0); LYMPHOCYTES # (AUTO) 1.3 (1.0-3.2); LYMPHOCYTES % 22.1 % (18.0-39.1); MEAN CORPUSCULAR HGB CONC 33.6 g/dL (31-35); MEAN CORPUSCULAR VOLUME 89.4 fL (81-99); MONOCYTES # (AUTO) 0.7 (0.2-0.8); NEUTROPHILS # (AUTO) 3.8 (2.1-6.9); NEUTROPHILS % 64.6 % (38.7-80.0); PLATELET COUNT 137 x10e3/uL (140-360); RED BLOOD COUNT 4.23 x10e6/uL (4.3-5.7); RED CELL DISTRIBUTION WIDTH 12.9 % (11.7-14.4)
[2020-09-03 05:40] LABS: ANION GAP 11.9 mmol/L (8-16); CALCIUM 8.3 mg/dL (8.4-10.2); CREATININE, SERUM 1.55 mg/dL (0.72-1.25); POTASSIUM 3.9 mmol/L (3.5-5.1)
[2020-09-03] MEDS: SODIUM CHLORIDE 0.9% 1000ML 1,000 ML IV SCH ×3 (06:02→19:00)
[2020-09-03] MEDS: CEFTRIAXONE SOD 1 GM/NS 50 ML 50 ML IV SCH (08:11)
[2020-09-03] MEDS: RAMIPRIL 5 MG CAP PO SCH ×3 (09:00→17:28)
[2020-09-03] MEDS ORDERED: SEVOFLURANE INHAL SOLN 250 ML PEN BTL ONE (12:56)
[2020-09-03] MEDS ORDERED: DEXAMETHASONE SOD PHOS INJ 4 MG/ML VIAL ONE (12:56)
[2020-09-03] MEDS ORDERED: ONDANSETRON HCL INJ 2MG/ML 2ML 2 MG/ML VIAL ONE (12:56)
[2020-09-03] MEDS ORDERED: LIDOCAINE HCL 2% JELLY 5 ML TUBE ONE (12:56)
[2020-09-03] MEDS ORDERED: LIDOCAINE HCL 2% LOCAL INJ 5 ML SDV VIAL INJ ONE (12:56)
[2020-09-03] MEDS ORDERED: PROPOFOL IV EMULSION 10 MG/ML 20 ML VIAL ONE (12:56)
[2020-09-03] MEDS ORDERED: B&O 60MG R/S 60 MG SUPP PR PRN (13:45)
[2020-09-03] MEDS ORDERED: PHENAZOPYRIDINE HCL 100 MG TAB PO PRN (13:45)
[2020-09-03] MEDS: HYDROCHLOROTHIAZIDE 25 MG TAB PO SCH (17:27)
[2020-09-03] MEDS: CRESTOR 10MG PO SCH (21:10)
[2020-09-04 00:25] VITALS: BP 103/50
[2020-09-04] MEDS: SODIUM CHLORIDE 0.9% 1000ML 1,000 ML IV SCH ×2 (03:00→11:00)
[2020-09-04 05:00] VITALS: BP 117/59
[2020-09-04 05:05] LABS: BASOPHILS % 0.3 % (0.0-1.0); EOSINOPHILS % 0.3 % (0.0-6.0); HEMATOCRIT 37.9 % (38.2-49.6); HEMOGLOBIN 12.3 g/dL (14.0-18.0); LYMPHOCYTES # (AUTO) 1.2 (1.0-3.2); LYMPHOCYTES % 19.8 % (18.0-39.1); MEAN CORPUSCULAR HEMOGLOBIN 29.2 pg (28-32); MEAN CORPUSCULAR HGB CONC 32.5 g/dL (31-35); MONOCYTES # (AUTO) 0.4 (0.2-0.8); MONOCYTES % 6.9 % (4.4-11.3); NEUTROPHILS # (AUTO) 4.4 (2.1-6.9); NEUTROPHILS % 72.4 % (38.7-80.0); PLATELET COUNT 143 x10e3/uL (140-360); RED BLOOD COUNT 4.21 x10e6/uL (4.3-5.7); RED CELL DISTRIBUTION WIDTH 12.4 % (11.7-14.4)
[2020-09-04 05:27] LABS: ANION GAP 12.4 mmol/L (8-16); BLOOD UREA NITROGEN 20 mg/dL (7-26); BUN/CREATININE RATIO 22 (6-25); CALCIUM 8.8 mg/dL (8.4-10.2); CARBON DIOXIDE 27 mmol/L (22-29); CHLORIDE 106 mmol/L (98-107); EST GLOMERULAR FILTRATION RATE > 60 ML/MIN (60-); GLUCOSE 129 mg/dL (74-118); POTASSIUM 4.4 mmol/L (3.5-5.1); SODIUM 141 mmol/L (136-145)
[2020-09-04 08:02] VITALS: BP 137/72
[2020-09-04 08:27] VITALS: BP 137/72
[2020-09-04] MEDS: HYDROCHLOROTHIAZIDE 25 MG TAB PO SCH (08:49)
[2020-09-04] MEDS: CEFTRIAXONE SOD 1 GM/NS 50 ML 50 ML IV SCH (08:49)
[2020-09-04] MEDS: RAMIPRIL 5 MG CAP PO SCH (08:49)
[2020-09-04 12:17] VITALS: BP 134/60
== END 2020-09-04 12:50 | disposition home or self-care (01) | DRG 660 ==
LOC: ER 01:33 → ERHOLD 03:06 → MED/SURG2 03:54
PROC: 0TCB8ZZ Extirpation of Matter from Bladder, Via Natural or Artificial Opening Endoscopic (ICD-10-PCS; 2020-09-03)
PROC: BT141ZZ Fluoroscopy of Kidneys, Ureters and Bladder using Low Osmolar Contrast (ICD-10-PCS; 2020-09-03)
PROC: 0T778DZ Dilation of Left Ureter with Intraluminal Device, Via Natural or Artificial Opening Endoscopic (ICD-10-PCS; principal; 2020-09-03 12:55)
DX: N13.2 Hydronephrosis with renal and ureteral calculous obstruction (principal); N13.8 Other obstructive and reflux uropathy; I10 Essential (primary) hypertension; E78.5 Hyperlipidemia, unspecified; G47.30 Sleep apnea, unspecified; Z95.1 Presence of aortocoronary bypass graft; Z87.442 Personal history of urinary calculi; Z95.5 Presence of coronary angioplasty implant and graft; I25.10 Atherosclerotic heart disease of native coronary artery without angina pectoris; N41.1 Chronic prostatitis; N40.1 Benign prostatic hyperplasia with lower urinary tract symptoms; N39.41 Urge incontinence; R35.1 Nocturia; N17.9 Acute kidney failure, unspecified; D64.9 Anemia, unspecified; N39.0 Urinary tract infection, site not specified; R31.29 Other microscopic hematuria; N21.0 Calculus in bladder; Z20.822 Contact with and (suspected) exposure to COVID-19
CPT/HCPCS: 36415; 74176; 74420; 80048; 80053; 81001; 84550; 85025; 87086; 88300; 93005; 99284; C1769; C2617; J0696; J1100; J1885; J2001; J2270; J2405; J7030; U0002

== ENCOUNTER → 2020-10-01 | Day surgery (SDC) | payer BC ==
[~2020-10-01] MED LIST changes: +CARVEDILOL3.125 MG PO; +CEFTRIAXONE SOD 1 GM VIAL ONE; +DEXAMETHASONE SOD PHOS INJ 4 MG/ML VIAL ONE; +LIDOCAINE HCL 2% JELLY 5 ML TUBE ONE; +LIDOCAINE HCL 2% LOCAL INJ 5 ML SDV VIAL INJ ONE; +ONDANSETRON HCL INJ 2MG/ML 2ML 2 MG/ML VIAL ONE; +PROPOFOL IV EMULSION 10 MG/ML 20 ML VIAL ONE; +SEVOFLURANE INHAL SOLN 250 ML PEN BTL ONE
[2020-10-01 08:33] LABS: BASOPHILS # (AUTO) 0.1 (0.0-0.1); BASOPHILS % 1.2 % (0.0-1.0); EOSINOPHILS # (AUTO) 0.1 (0.0-0.4); HEMATOCRIT 38.9 % (38.2-49.6); LYMPHOCYTES # (AUTO) 1.3 (1.0-3.2); LYMPHOCYTES % 31.1 % (18.0-39.1); MEAN CORPUSCULAR HEMOGLOBIN 29.1 pg (28-32); MEAN CORPUSCULAR HGB CONC 33.4 g/dL (31-35); MONOCYTES # (AUTO) 0.5 (0.2-0.8); MONOCYTES % 12.2 % (4.4-11.3); NEUTROPHILS # (AUTO) 2.2 (2.1-6.9); PLATELET COUNT 168 x10e3/uL (140-360); RED BLOOD COUNT 4.47 x10e6/uL (4.3-5.7); RED CELL DISTRIBUTION WIDTH 12.4 % (11.7-14.4)
[2020-10-01 08:51] LABS: ANION GAP 11.7 mmol/L (8-16); BLOOD UREA NITROGEN 24 mg/dL (7-26); BUN/CREATININE RATIO 28 (6-25); CALCIUM 9.1 mg/dL (8.4-10.2); CARBON DIOXIDE 29 mmol/L (22-29); CHLORIDE 104 mmol/L (98-107); CREATININE, SERUM 0.85 mg/dL (0.72-1.25); EST GLOMERULAR FILTRATION RATE > 60 ML/MIN (60-); GLUCOSE 126 mg/dL (74-118); POTASSIUM 3.7 mmol/L (3.5-5.1); SODIUM 141 mmol/L (136-145)
[2020-10-01 12:45] VITALS: BP 141/71
== END | disposition home or self-care (01) ==
LOC: OR 06:44
PROVIDERS: ATTEND Urology
DX: N20.0 Calculus of kidney (principal); Z96.0 Presence of urogenital implants; Z86.16 Personal history of COVID-19; G47.33 Obstructive sleep apnea (adult) (pediatric); I10 Essential (primary) hypertension; I25.2 Old myocardial infarction; R00.1 Bradycardia, unspecified; Z79.02 Long term (current) use of antithrombotics/antiplatelets; Z79.82 Long term (current) use of aspirin; Z95.1 Presence of aortocoronary bypass graft
CPT/HCPCS: 36415; 50590; 74018; 80048; 85025; J0696; J1100; J2001 ×2; J2405; J2704

== ENCOUNTER → 2020-10-28 | Day surgery (SDC) | payer BC ==
[~2020-10-28] MED LIST changes: -DEXAMETHASONE SOD PHOS INJ 4 MG/ML VIAL ONE; -LIDOCAINE HCL 2% JELLY 5 ML TUBE ONE; -LIDOCAINE HCL 2% LOCAL INJ 5 ML SDV VIAL INJ ONE; -ONDANSETRON HCL INJ 2MG/ML 2ML 2 MG/ML VIAL ONE; -PROPOFOL IV EMULSION 10 MG/ML 20 ML VIAL ONE; -SEVOFLURANE INHAL SOLN 250 ML PEN BTL ONE; +SODIUM CHLORIDE 0.9% 50ML 50 ML ONE; +VESICARE5 MG PO
[2020-10-28 09:00] VITALS: BP 136/67
== END | disposition home or self-care (01) ==
LOC: OR 05:30
PROVIDERS: ATTEND Urology
DX: N20.0 Calculus of kidney (principal); Z96.0 Presence of urogenital implants; N40.0 Benign prostatic hyperplasia without lower urinary tract symptoms; G47.33 Obstructive sleep apnea (adult) (pediatric); I25.810 Atherosclerosis of coronary artery bypass graft(s) without angina pectoris; I44.0 Atrioventricular block, first degree; I10 Essential (primary) hypertension; R00.1 Bradycardia, unspecified; E78.5 Hyperlipidemia, unspecified; Z79.02 Long term (current) use of antithrombotics/antiplatelets; Z79.82 Long term (current) use of aspirin; Z95.1 Presence of aortocoronary bypass graft; Z86.16 Personal history of COVID-19
CPT/HCPCS: 50590; 74018; J0696

== ENCOUNTER → 2020-11-07 | Day surgery (SDC) | payer BC ==
[2020-11-04 09:07] LABS: BASOPHILS % 0.7 % (0.0-1.0); EOSINOPHILS # (AUTO) 0.2 (0.0-0.4); EOSINOPHILS % 3.9 % (0.0-6.0); HEMATOCRIT 40.3 % (38.2-49.6); HEMOGLOBIN 13.3 g/dL (14.0-18.0); LYMPHOCYTES # (AUTO) 1.4 (1.0-3.2); LYMPHOCYTES % 31.6 % (18.0-39.1); MEAN CORPUSCULAR VOLUME 87.8 fL (81-99); MONOCYTES # (AUTO) 0.4 (0.2-0.8); MONOCYTES % 8.2 % (4.4-11.3); NEUTROPHILS # (AUTO) 2.4 (2.1-6.9); NEUTROPHILS % 55.1 % (38.7-80.0); PLATELET COUNT 172 x10e3/uL (140-360); RED BLOOD COUNT 4.59 x10e6/uL (4.3-5.7); RED CELL DISTRIBUTION WIDTH 13.1 % (11.7-14.4)
[2020-11-04 09:29] LABS: ALANINE AMINOTRANSFERASE 16 IU/L (0-55); ALBUMIN 4.1 g/dL (3.5-5.0); ALBUMIN/GLOBULIN RATIO 1.3 (0.8-2.0); ALKALINE PHOSPHATASE 58 IU/L (40-150); ANION GAP 14.1 mmol/L (8-16); BLOOD UREA NITROGEN 23 mg/dL (7-26); BUN/CREATININE RATIO 26 (6-25); CALCIUM 9.2 mg/dL (8.4-10.2); CARBON DIOXIDE 27 mmol/L (22-29); CHLORIDE 102 mmol/L (98-107); CREATININE, SERUM 0.87 mg/dL (0.72-1.25); EST GLOMERULAR FILTRATION RATE > 60 ML/MIN (60-); GLUCOSE 122 mg/dL (74-118); POTASSIUM 4.1 mmol/L (3.5-5.1); SODIUM 139 mmol/L (136-145)
[~2020-11-07] MED LIST changes: +B&O 60MG R/S 60 MG SUPP PR ONE; +DEXAMETHASONE SOD PHOS INJ 4 MG/ML VIAL ONE; +IOPAMIDOL 300MG/ML 50ML INFUS..BTL IV ONE; +LIDOCAINE HCL 2% JELLY 5 ML TUBE ONE; +LIDOCAINE HCL 2% LOCAL INJ 5 ML SDV VIAL INJ ONE; +ONDANSETRON HCL INJ 2MG/ML 2ML 2 MG/ML VIAL ONE; +PROPOFOL IV EMULSION 10 MG/ML 20 ML VIAL ONE; +SEVOFLURANE INHAL SOLN 250 ML PEN BTL ONE
[2020-11-07 10:10] VITALS: BP 143/85
== END | disposition home or self-care (01) ==
LOC: OR 05:28
PROVIDERS: ATTEND Urology
DX: N20.0 Calculus of kidney (principal); Z46.6 Encounter for fitting and adjustment of urinary device; N32.89 Other specified disorders of bladder; N40.1 Benign prostatic hyperplasia with lower urinary tract symptoms; N13.8 Other obstructive and reflux uropathy; R39.14 Feeling of incomplete bladder emptying; R35.1 Nocturia; N40.3 Nodular prostate with lower urinary tract symptoms; R97.20 Elevated prostate specific antigen [PSA]; N41.1 Chronic prostatitis; N13.30 Unspecified hydronephrosis; K42.9 Umbilical hernia without obstruction or gangrene; N39.41 Urge incontinence; N32.81 Overactive bladder; G47.33 Obstructive sleep apnea (adult) (pediatric); I25.810 Atherosclerosis of coronary artery bypass graft(s) without angina pectoris; I10 Essential (primary) hypertension; E78.5 Hyperlipidemia, unspecified; I49.9 Cardiac arrhythmia, unspecified; R01.1 Cardiac murmur, unspecified; M19.90 Unspecified osteoarthritis, unspecified site; M54.2 Cervicalgia; Z01.812 Encounter for preprocedural laboratory examination; Z79.02 Long term (current) use of antithrombotics/antiplatelets; Z79.82 Long term (current) use of aspirin; Z68.32 Body mass index [BMI] 32.0-32.9, adult; Z95.1 Presence of aortocoronary bypass graft; Z87.891 Personal history of nicotine dependence
CPT/HCPCS: 36415; 52356; 71046; 74018; 74420; 80053; 83970; 84550; 85025; C1766; C1769; C2617; J0696; Q9967; J1100; J2001; J2405

== ENCOUNTER → 2020-11-28 | Day surgery (SDC) | payer BC ==
[~2020-11-28] MED LIST changes: +FENTANYL CITRATE/PF 100MCG/2 ML INJ ONE; +GENTAMICIN 80MG/NS 100 ML 100 ML IV ONE; +MIDAZOLAM HCL 2 MG/2 ML VIAL ONE; +POVIDONE IODINE 0.05% 0.05 % ML PO ONE
[2020-11-28 07:20] LABS: BASOPHILS % 0.8 % (0.0-1.0); EOSINOPHILS # (AUTO) 0.1 (0.0-0.4); EOSINOPHILS % 3.3 % (0.0-6.0); HEMOGLOBIN 12.7 g/dL (14.0-18.0); LYMPHOCYTES # (AUTO) 1.2 (1.0-3.2); LYMPHOCYTES % 29.9 % (18.0-39.1); MEAN CORPUSCULAR HEMOGLOBIN 29.7 pg (28-32); MEAN CORPUSCULAR HGB CONC 34.3 g/dL (31-35); MEAN CORPUSCULAR VOLUME 86.4 fL (81-99); MONOCYTES # (AUTO) 0.5 (0.2-0.8); MONOCYTES % 11.4 % (4.4-11.3); NEUTROPHILS # (AUTO) 2.2 (2.1-6.9); NEUTROPHILS % 54.3 % (38.7-80.0); PLATELET COUNT 154 x10e3/uL (140-360); RED BLOOD COUNT 4.28 x10e6/uL (4.3-5.7); RED CELL DISTRIBUTION WIDTH 12.7 % (11.7-14.4)
[2020-11-28 07:52] LABS: ANION GAP 13.7 mmol/L (8-16); BLOOD UREA NITROGEN 23 mg/dL (7-26); BUN/CREATININE RATIO 27 (6-25); CALCIUM 8.9 mg/dL (8.4-10.2); CARBON DIOXIDE 27 mmol/L (22-29); CHLORIDE 104 mmol/L (98-107); CREATININE, SERUM 0.85 mg/dL (0.72-1.25); EST GLOMERULAR FILTRATION RATE > 60 ML/MIN (60-); GLUCOSE 128 mg/dL (74-118); POTASSIUM 3.7 mmol/L (3.5-5.1); SODIUM 141 mmol/L (136-145)
[2020-11-28 10:30] VITALS: BP 118/74
== END | disposition home or self-care (01) ==
LOC: OR 05:35
PROVIDERS: ATTEND Urology
DX: N20.0 Calculus of kidney (principal); N40.1 Benign prostatic hyperplasia with lower urinary tract symptoms; N13.8 Other obstructive and reflux uropathy; N28.89 Other specified disorders of kidney and ureter; N39.0 Urinary tract infection, site not specified; G47.33 Obstructive sleep apnea (adult) (pediatric); I25.810 Atherosclerosis of coronary artery bypass graft(s) without angina pectoris; I10 Essential (primary) hypertension; I47.2 Ventricular tachycardia; H91.90 Unspecified hearing loss, unspecified ear; Z79.82 Long term (current) use of aspirin; Z79.02 Long term (current) use of antithrombotics/antiplatelets; Z95.1 Presence of aortocoronary bypass graft; Z86.16 Personal history of COVID-19
CPT/HCPCS: 36415; 50590; 52352; 74018; 80048; 85025; 88300; C1766; C1769; J0696; J1100; J1580; J2001 ×2; J2250; J2405; J2704; J3010; Q9967

== ENCOUNTER → 2021-02-06 | Day surgery (SDC) | payer BC ==
[2021-02-02 15:29] LABS: BASOPHILS % 0.6 % (0.0-1.0); EOSINOPHILS # (AUTO) 0.1 (0.0-0.4); EOSINOPHILS % 2.1 % (0.0-6.0); HEMATOCRIT 39.2 % (38.2-49.6); LYMPHOCYTES # (AUTO) 1.4 (1.0-3.2); MEAN CORPUSCULAR HEMOGLOBIN 29.3 pg (28-32); MEAN CORPUSCULAR HGB CONC 33.2 g/dL (31-35); MEAN CORPUSCULAR VOLUME 88.3 fL (81-99); MONOCYTES # (AUTO) 0.5 (0.2-0.8); MONOCYTES % 8.9 % (4.4-11.3); NEUTROPHILS # (AUTO) 3.2 (2.1-6.9); PLATELET COUNT 138 x10e3/uL (140-360); RED BLOOD COUNT 4.44 x10e6/uL (4.3-5.7); RED CELL DISTRIBUTION WIDTH 12.7 % (11.7-14.4)
[2021-02-02 15:44] LABS: ANION GAP 11.1 mmol/L (8-16); CALCIUM 9.1 mg/dL (8.4-10.2); CREATININE, SERUM 1.16 mg/dL (0.72-1.25); POTASSIUM 4.1 mmol/L (3.5-5.1)
[~2021-02-06] MED LIST changes: +AZO STANDARD95 MG PO; -B&O 60MG R/S 60 MG SUPP PR ONE; +CEFTRIAXONE 1 GM VIAL ONE; -CEFTRIAXONE SOD 1 GM VIAL ONE; -GENTAMICIN 80MG/NS 100 ML 100 ML IV ONE; -IOPAMIDOL 300MG/ML 50ML INFUS..BTL IV ONE; +LABETALOL HCL 5 MG/ML 20ML VIAL ONE; -LIDOCAINE HCL 2% JELLY 5 ML TUBE ONE; +MULTI-VITAMIN1 EACH PO; +SLOW-MAG64 MG PO
[2021-02-06 09:40] VITALS: BP 125/74
== END | disposition home or self-care (01) ==
LOC: OR 05:57
PROVIDERS: ATTEND Urology
DX: N20.0 Calculus of kidney (principal); N39.0 Urinary tract infection, site not specified; N40.0 Benign prostatic hyperplasia without lower urinary tract symptoms; G47.33 Obstructive sleep apnea (adult) (pediatric); I10 Essential (primary) hypertension; I25.810 Atherosclerosis of coronary artery bypass graft(s) without angina pectoris; I47.2 Ventricular tachycardia; Z01.812 Encounter for preprocedural laboratory examination; Z01.818 Encounter for other preprocedural examination; Z20.822 Contact with and (suspected) exposure to COVID-19; Z79.02 Long term (current) use of antithrombotics/antiplatelets; Z79.82 Long term (current) use of aspirin; Z95.1 Presence of aortocoronary bypass graft
CPT/HCPCS: 36415; 50590; 74018; 80048; 84550; 85025; 93005; J0696; J1100; J2001; J2250; J2405; J2704; J3010; J3490; U0002

== ENCOUNTER → 2021-03-27 | Day surgery (SDC) | payer BC ==
[2021-03-25 14:47] LABS: BASOPHILS % 0.7 % (0.0-1.0); EOSINOPHILS # (AUTO) 0.2 (0.0-0.4); EOSINOPHILS % 3.5 % (0.0-6.0); HEMATOCRIT 37.9 % (38.2-49.6); HEMOGLOBIN 12.7 g/dL (14.0-18.0); LYMPHOCYTES # (AUTO) 1.6 (1.0-3.2); LYMPHOCYTES % 34.9 % (18.0-39.1); MEAN CORPUSCULAR HEMOGLOBIN 29.4 pg (28-32); MEAN CORPUSCULAR HGB CONC 33.5 g/dL (31-35); MEAN CORPUSCULAR VOLUME 87.7 fL (81-99); MONOCYTES # (AUTO) 0.5 (0.2-0.8); MONOCYTES % 11.2 % (4.4-11.3); NEUTROPHILS # (AUTO) 2.3 (2.1-6.9); NEUTROPHILS % 49.3 % (38.7-80.0); PLATELET COUNT 147 x10e3/uL (140-360); RED BLOOD COUNT 4.32 x10e6/uL (4.3-5.7); RED CELL DISTRIBUTION WIDTH 13.2 % (11.7-14.4)
[2021-03-25 15:07] LABS: ANION GAP 14.7 mmol/L (8-16); CALCIUM 9.4 mg/dL (8.4-10.2); CREATININE, SERUM 0.99 mg/dL (0.72-1.25); POTASSIUM 3.7 mmol/L (3.5-5.1)
[~2021-03-27] MED LIST changes: -DEXAMETHASONE SOD PHOS INJ 4 MG/ML VIAL ONE; -FENTANYL CITRATE/PF 100MCG/2 ML INJ ONE; -LABETALOL HCL 5 MG/ML 20ML VIAL ONE; -LIDOCAINE HCL 2% LOCAL INJ 5 ML SDV VIAL INJ ONE; -MIDAZOLAM HCL 2 MG/2 ML VIAL ONE; -ONDANSETRON HCL INJ 2MG/ML 2ML 2 MG/ML VIAL ONE; -POVIDONE IODINE 0.05% 0.05 % ML PO ONE; -PROPOFOL IV EMULSION 10 MG/ML 20 ML VIAL ONE; -SEVOFLURANE INHAL SOLN 250 ML PEN BTL ONE
[2021-03-27 10:00] VITALS: BP 157/90
== END | disposition home or self-care (01) ==
LOC: OR 05:33
PROVIDERS: ATTEND Urology
DX: N20.0 Calculus of kidney (principal); I25.810 Atherosclerosis of coronary artery bypass graft(s) without angina pectoris; I10 Essential (primary) hypertension; I25.2 Old myocardial infarction; Z01.812 Encounter for preprocedural laboratory examination; Z01.818 Encounter for other preprocedural examination; Z20.822 Contact with and (suspected) exposure to COVID-19; Z79.02 Long term (current) use of antithrombotics/antiplatelets; Z79.82 Long term (current) use of aspirin; Z95.1 Presence of aortocoronary bypass graft
CPT/HCPCS: 36415; 50590; 74018; 80048; 85025; J0696; U0002

== ENCOUNTER → 2021-04-06 | Outpatient (CLI) | payer BC ==
[~2021-04-06] MED LIST changes: -CEFTRIAXONE 1 GM VIAL ONE; -SODIUM CHLORIDE 0.9% 50ML 50 ML ONE
== END ==
LOC: MRI 14:23
PROVIDERS: ATTEND Family Medicine
DX: M50.00 Cervical disc disorder with myelopathy, unspecified cervical region (principal)
CPT/HCPCS: 72141

== ENCOUNTER → 2021-05-22 | Day surgery (SDC) | payer BC ==
[2021-05-20 14:50] LABS: BASOPHILS % 0.6 % (0.0-1.0); EOSINOPHILS # (AUTO) 0.1 (0.0-0.4); EOSINOPHILS % 1.4 % (0.0-6.0); HEMATOCRIT 39.9 % (38.2-49.6); HEMOGLOBIN 13.4 g/dL (14.0-18.0); LYMPHOCYTES # (AUTO) 1.5 (1.0-3.2); LYMPHOCYTES % 29.8 % (18.0-39.1); MEAN CORPUSCULAR HEMOGLOBIN 29.3 pg (28-32); MEAN CORPUSCULAR HGB CONC 33.6 g/dL (31-35); MEAN CORPUSCULAR VOLUME 87.3 fL (81-99); MONOCYTES # (AUTO) 0.4 (0.2-0.8); MONOCYTES % 8.5 % (4.4-11.3); NEUTROPHILS # (AUTO) 3.1 (2.1-6.9); NEUTROPHILS % 59.5 % (38.7-80.0); PLATELET COUNT 167 x10e3/uL (140-360); RED BLOOD COUNT 4.57 x10e6/uL (4.3-5.7); RED CELL DISTRIBUTION WIDTH 12.6 % (11.7-14.4)
[2021-05-20 15:08] LABS: ANION GAP 13.6 mmol/L (8-16); CALCIUM 9.6 mg/dL (8.4-10.2); CREATININE, SERUM 1.11 mg/dL (0.72-1.25); POTASSIUM 3.6 mmol/L (3.5-5.1)
[~2021-05-22] MED LIST changes: +CEFTRIAXONE 1 GM VIAL ONE; +FENTANYL CITRATE/PF 100MCG/2 ML INJ ONE; +MIDAZOLAM HCL 2 MG/2 ML VIAL ONE; +SODIUM CHLORIDE 0.9% 50ML 50 ML ONE
[2021-05-22 12:05] VITALS: BP 119/60
== END | disposition home or self-care (01) ==
LOC: OR 07:59
PROVIDERS: ATTEND Urology
DX: N20.0 Calculus of kidney (principal); N40.0 Benign prostatic hyperplasia without lower urinary tract symptoms; Z96.0 Presence of urogenital implants; G47.33 Obstructive sleep apnea (adult) (pediatric); I10 Essential (primary) hypertension; E78.5 Hyperlipidemia, unspecified; I25.810 Atherosclerosis of coronary artery bypass graft(s) without angina pectoris; Z01.810 Encounter for preprocedural cardiovascular examination; Z01.812 Encounter for preprocedural laboratory examination; Z01.818 Encounter for other preprocedural examination; Z20.822 Contact with and (suspected) exposure to COVID-19; Z79.02 Long term (current) use of antithrombotics/antiplatelets; Z79.82 Long term (current) use of aspirin; Z95.1 Presence of aortocoronary bypass graft
CPT/HCPCS: 36415; 50590; 74018; 80048; 84550; 85025; 93005; J0696; U0002; J2250; J3010

== ENCOUNTER → 2022-08-18 | Outpatient (CLI) | payer BC ==
[~2022-08-18] MED LIST changes: -CEFTRIAXONE 1 GM VIAL ONE; -FENTANYL CITRATE/PF 100MCG/2 ML INJ ONE; -MIDAZOLAM HCL 2 MG/2 ML VIAL ONE; -SODIUM CHLORIDE 0.9% 50ML 50 ML ONE
== END ==
LOC: RAD 13:33
PROVIDERS: ATTEND Urology
DX: N20.0 Calculus of kidney (principal); N20.1 Calculus of ureter
CPT/HCPCS: 74018

== ENCOUNTER → 2022-09-07 | Outpatient (CLI) | payer BC | LOC: CT 14:59 | PROVIDERS: ATTEND Urology | DX: N20.0 Calculus of kidney (principal) | CPT/HCPCS: 74176 ==

== ENCOUNTER → 2022-09-17 | Day surgery (SDC) | payer BC ==
[2022-09-07 15:30] LABS: BASOPHILS % 0.3 % (0.0-1.0); EOSINOPHILS # (AUTO) 0.1 (0.0-0.4); EOSINOPHILS % 1.3 % (0.0-6.0); HEMATOCRIT 46.1 % (38.2-49.6); HEMOGLOBIN 14.5 g/dL (14.0-18.0); LYMPHOCYTES # (AUTO) 1.9 (1.0-3.2); LYMPHOCYTES % 31.7 % (18.0-39.1); MEAN CORPUSCULAR HEMOGLOBIN 29.1 pg (28-32); MEAN CORPUSCULAR HGB CONC 31.5 g/dL (31-35); MEAN CORPUSCULAR VOLUME 92.6 fL (81-99); MONOCYTES # (AUTO) 0.5 (0.2-0.8); MONOCYTES % 8.7 % (4.4-11.3); NEUTROPHILS # (AUTO) 3.4 (2.1-6.9); NEUTROPHILS % 57.5 % (38.7-80.0); PLATELET COUNT 180 x10e3/uL (140-360); RED BLOOD COUNT 4.98 x10e6/uL (4.3-5.7); RED CELL DISTRIBUTION WIDTH 12.3 % (11.7-14.4)
[2022-09-07 15:51] LABS: ANION GAP 12.9 mmol/L (8-16); CALCIUM 10.4 mg/dL (8.4-10.2); CREATININE, SERUM 1.13 mg/dL (0.72-1.25); POTASSIUM 3.9 mmol/L (3.5-5.1)
[~2022-09-17] MED LIST changes: +CEFTRIAXONE 1 GM VIAL ONE; +EPHEDRINE SULFATE INJ 50 MG/ML VIAL ONE; +FENTANYL CITRATE/PF 100MCG/2 ML INJ ONE; +GLYCOPYRROLATE INJ 0.2 MG/ML VIAL ONE; +IOPAMIDOL 370 MG/ML 100 ML INFUS..BTL INJ ONE; +LIDOCAINE HCL 2% LOCAL INJ 5 ML SDV VIAL INJ ONE; +ONDANSETRON HCL INJ 2MG/ML 2ML 2 MG/ML VIAL ONE; +POVIDONE IODINE 0.05% 0.05 % ML PO ONE; +PROPOFOL IV EMULSION 10 MG/ML 20 ML VIAL ONE; +SEVOFLURANE INHAL SOLN 250 ML PEN BTL ONE
[2022-09-17 09:50] VITALS: BP 119/68
== END | disposition home or self-care (01) ==
LOC: OR 05:28
PROVIDERS: ATTEND Urology
DX: N13.2 Hydronephrosis with renal and ureteral calculous obstruction (principal); N41.1 Chronic prostatitis; N39.41 Urge incontinence; N32.89 Other specified disorders of bladder; N40.1 Benign prostatic hyperplasia with lower urinary tract symptoms; R35.1 Nocturia; R39.14 Feeling of incomplete bladder emptying; R39.12 Poor urinary stream; K42.9 Umbilical hernia without obstruction or gangrene; E66.9 Obesity, unspecified; I25.810 Atherosclerosis of coronary artery bypass graft(s) without angina pectoris; I10 Essential (primary) hypertension; E78.00 Pure hypercholesterolemia, unspecified; Z01.810 Encounter for preprocedural cardiovascular examination; Z01.812 Encounter for preprocedural laboratory examination; Z01.818 Encounter for other preprocedural examination; Z79.02 Long term (current) use of antithrombotics/antiplatelets; Z79.82 Long term (current) use of aspirin; Z79.899 Other long term (current) drug therapy; Z68.35 Body mass index [BMI] 35.0-35.9, adult; Z95.1 Presence of aortocoronary bypass graft; Z87.891 Personal history of nicotine dependence
CPT/HCPCS: 36415; 50590; 52332; 71046; 74018; 80048; 84550; 85025; 87086; 93005; C1758; C1769; C2617; J0696; J2001; J2405; J2704; J3010; Q9967

== ENCOUNTER → 2022-10-05 | Day surgery (SDC) | payer BC ==
[~2022-10-05] MED LIST changes: -EPHEDRINE SULFATE INJ 50 MG/ML VIAL ONE; -GLYCOPYRROLATE INJ 0.2 MG/ML VIAL ONE; -IOPAMIDOL 370 MG/ML 100 ML INFUS..BTL INJ ONE
[2022-10-05 08:44] VITALS: BP 142/91
== END | disposition home or self-care (01) ==
LOC: OR 05:30
PROVIDERS: ATTEND Urology
DX: N20.0 Calculus of kidney (principal); Z01.818 Encounter for other preprocedural examination; Z96.0 Presence of urogenital implants; G47.33 Obstructive sleep apnea (adult) (pediatric); I25.810 Atherosclerosis of coronary artery bypass graft(s) without angina pectoris; I10 Essential (primary) hypertension; E78.5 Hyperlipidemia, unspecified; H91.90 Unspecified hearing loss, unspecified ear; Z91.048 Other nonmedicinal substance allergy status; Z79.02 Long term (current) use of antithrombotics/antiplatelets; Z79.82 Long term (current) use of aspirin; Z79.899 Other long term (current) drug therapy; Z95.1 Presence of aortocoronary bypass graft; Z86.16 Personal history of COVID-19
CPT/HCPCS: 50590; 74018; J0696; J2001; J2405; J2704; J3010

== ENCOUNTER → 2022-10-29 | Day surgery (SDC) | payer BC ==
[2022-10-28 14:03] LABS: BASOPHILS % 0.5 % (0.0-1.0); EOSINOPHILS # (AUTO) 0.2 (0.0-0.4); EOSINOPHILS % 2.5 % (0.0-6.0); HEMATOCRIT 40.1 % (38.2-49.6); HEMOGLOBIN 13.5 g/dL (14.0-18.0); LYMPHOCYTES # (AUTO) 1.7 (1.0-3.2); LYMPHOCYTES % 28.8 % (18.0-39.1); MEAN CORPUSCULAR HEMOGLOBIN 29.1 pg (28-32); MEAN CORPUSCULAR HGB CONC 33.7 g/dL (31-35); MEAN CORPUSCULAR VOLUME 86.4 fL (81-99); MONOCYTES # (AUTO) 0.5 (0.2-0.8); MONOCYTES % 9.2 % (4.4-11.3); NEUTROPHILS # (AUTO) 3.5 (2.1-6.9); NEUTROPHILS % 58.5 % (38.7-80.0); PLATELET COUNT 184 x10e3/uL (140-360); RED BLOOD COUNT 4.64 x10e6/uL (4.3-5.7); RED CELL DISTRIBUTION WIDTH 12.8 % (11.7-14.4)
[2022-10-28 14:19] LABS: ANION GAP 15.3 mmol/L (8-16); CALCIUM 9.7 mg/dL (8.4-10.2); CREATININE, SERUM 1.04 mg/dL (0.72-1.25); POTASSIUM 3.3 mmol/L (3.5-5.1)
[~2022-10-29] MED LIST changes: -CEFTRIAXONE 1 GM VIAL ONE; +DEXAMETHASONE SOD PHOS INJ 4 MG/ML SDV ONE; +DIPHENHYDRAMINE HCL INJ 50 MG/ML VIAL ONE; +EPHEDRINE SULFATE INJ 50 MG/ML VIAL ONE; +FINASTERIDE5 MG PO; +GENTAMICIN 80MG/NS 100 ML 200 ML IV ONE; +IOPAMIDOL 610MG/1ML 300 MG/ML VIAL IV ONE; +LACTATED RINGER'S 1,000 ML ONE; +PHENAZOPYRIDINE HCL 100 MG TAB ONE; -SEVOFLURANE INHAL SOLN 250 ML PEN BTL ONE
[2022-10-29 13:00] VITALS: BP 121/79
== END | disposition home or self-care (01) ==
LOC: OR 07:35
PROVIDERS: ATTEND Urology
DX: N20.0 Calculus of kidney (principal); Z46.6 Encounter for fitting and adjustment of urinary device; N40.1 Benign prostatic hyperplasia with lower urinary tract symptoms; N13.8 Other obstructive and reflux uropathy; N32.89 Other specified disorders of bladder; Z01.810 Encounter for preprocedural cardiovascular examination; Z01.812 Encounter for preprocedural laboratory examination; Z01.818 Encounter for other preprocedural examination; Z79.82 Long term (current) use of aspirin; Z79.02 Long term (current) use of antithrombotics/antiplatelets; Z79.899 Other long term (current) drug therapy
CPT/HCPCS: 36415; 50590; 52356; 71046; 74018; 80048; 85025; 93005; C1766; C1769; C2617; J1100; J1200; J1580; J2001; J2405; J2704; J3010; J7121

== ENCOUNTER → 2022-11-30 | Day surgery (SDC) | payer BC ==
[2022-11-29 14:39] LABS: BASOPHILS % 0.5 % (0.0-1.0); EOSINOPHILS # (AUTO) 0.1 (0.0-0.4); EOSINOPHILS % 1.9 % (0.0-6.0); HEMATOCRIT 38.8 % (38.2-49.6); HEMOGLOBIN 12.8 g/dL (14.0-18.0); LYMPHOCYTES # (AUTO) 1.7 (1.0-3.2); LYMPHOCYTES % 26.6 % (18.0-39.1); MEAN CORPUSCULAR HEMOGLOBIN 28.6 pg (28-32); MEAN CORPUSCULAR VOLUME 86.6 fL (81-99); MONOCYTES # (AUTO) 0.6 (0.2-0.8); MONOCYTES % 9.1 % (4.4-11.3); NEUTROPHILS # (AUTO) 3.9 (2.1-6.9); NEUTROPHILS % 61.3 % (38.7-80.0); PLATELET COUNT 158 x10e3/uL (140-360); RED BLOOD COUNT 4.48 x10e6/uL (4.3-5.7)
[2022-11-29 14:59] LABS: ANION GAP 12.5 mmol/L (8-16); CALCIUM 9.8 mg/dL (8.4-10.2); CREATININE, SERUM 1.15 mg/dL (0.72-1.25); POTASSIUM 3.5 mmol/L (3.5-5.1)
[~2022-11-30] MED LIST changes: +CEFTRIAXONE 1 GM VIAL ONE; -DIPHENHYDRAMINE HCL INJ 50 MG/ML VIAL ONE; -EPHEDRINE SULFATE INJ 50 MG/ML VIAL ONE; +MIDAZOLAM HCL 2 MG/2 ML VIAL ONE; -PHENAZOPYRIDINE HCL 100 MG TAB ONE; -POVIDONE IODINE 0.05% 0.05 % ML PO ONE; +SEVOFLURANE INHAL SOLN 250 ML PEN BTL ONE
[2022-11-30 09:15] VITALS: BP 118/72
== END | disposition home or self-care (01) ==
LOC: OR 06:21
PROVIDERS: ATTEND Urology
DX: N20.0 Calculus of kidney (principal); Z96.0 Presence of urogenital implants; Z01.812 Encounter for preprocedural laboratory examination; Z01.818 Encounter for other preprocedural examination; Z79.02 Long term (current) use of antithrombotics/antiplatelets; Z79.82 Long term (current) use of aspirin; Z79.899 Other long term (current) drug therapy
CPT/HCPCS: 36415; 50590; 74018; 80048; 84550; 85025; J0696; J1100; J1580; J2001; J2250; J2405; J2704; J3010; J7121

== ENCOUNTER → 2022-12-29 | Day surgery (SDC) | payer BC ==
[2022-12-28 08:43] LABS: BASOPHILS % 0.6 % (0.0-1.0); EOSINOPHILS # (AUTO) 0.2 (0.0-0.4); EOSINOPHILS % 3.6 % (0.0-6.0); HEMATOCRIT 41.5 % (38.2-49.6); HEMOGLOBIN 13.6 g/dL (14.0-18.0); LYMPHOCYTES # (AUTO) 1.3 (1.0-3.2); LYMPHOCYTES % 26.7 % (18.0-39.1); MEAN CORPUSCULAR HEMOGLOBIN 28.9 pg (28-32); MEAN CORPUSCULAR HGB CONC 32.8 g/dL (31-35); MEAN CORPUSCULAR VOLUME 88.1 fL (81-99); MONOCYTES # (AUTO) 0.4 (0.2-0.8); MONOCYTES % 8.2 % (4.4-11.3); NEUTROPHILS # (AUTO) 2.9 (2.1-6.9); NEUTROPHILS % 60.3 % (38.7-80.0); PLATELET COUNT 161 x10e3/uL (140-360); RED BLOOD COUNT 4.71 x10e6/uL (4.3-5.7); RED CELL DISTRIBUTION WIDTH 13.6 % (11.7-14.4)
[2022-12-28 08:59] LABS: ANION GAP 13.5 mmol/L (8-16); CALCIUM 9.8 mg/dL (8.4-10.2); CREATININE, SERUM 1.14 mg/dL (0.72-1.25); POTASSIUM 3.5 mmol/L (3.5-5.1)
[~2022-12-29] MED LIST changes: -CEFTRIAXONE 1 GM VIAL ONE; +FAMOTIDINE 20 MG/2 ML VIAL IV ONE; +GLYCOPYRROLATE INJ 0.2 MG/ML VIAL ONE; +OZEMPIC0.25 MG/0. SC; +POVIDONE IODINE 0.05% 0.05 % ML PO ONE; -SEVOFLURANE INHAL SOLN 250 ML PEN BTL ONE; +VALACYCLOVIR1000 MG PO
[2022-12-29 10:00] VITALS: BP 137/83; PULSE 66; RESP 16; O2SAT 96
== END | disposition home or self-care (01) ==
LOC: OR 05:31
PROVIDERS: ATTEND Urology
DX: N20.0 Calculus of kidney (principal); N20.1 Calculus of ureter; Z46.6 Encounter for fitting and adjustment of urinary device; N28.89 Other specified disorders of kidney and ureter; N41.1 Chronic prostatitis; N39.41 Urge incontinence; N13.30 Unspecified hydronephrosis; N40.1 Benign prostatic hyperplasia with lower urinary tract symptoms; R35.1 Nocturia; R39.14 Feeling of incomplete bladder emptying; R39.12 Poor urinary stream; G47.33 Obstructive sleep apnea (adult) (pediatric); E78.5 Hyperlipidemia, unspecified; I10 Essential (primary) hypertension; I25.810 Atherosclerosis of coronary artery bypass graft(s) without angina pectoris; K42.9 Umbilical hernia without obstruction or gangrene; E66.9 Obesity, unspecified; Z88.1 Allergy status to other antibiotic agents; Z01.812 Encounter for preprocedural laboratory examination; Z01.818 Encounter for other preprocedural examination; Z79.85 Long-term (current) use of injectable non-insulin antidiabetic drugs; Z79.02 Long term (current) use of antithrombotics/antiplatelets; Z79.82 Long term (current) use of aspirin; Z79.899 Other long term (current) drug therapy; Z68.35 Body mass index [BMI] 35.0-35.9, adult; Z95.1 Presence of aortocoronary bypass graft
CPT/HCPCS: 36415 ×2; 50590; 52356; 74018; 80048; 82948; 84550; 85025; 88300; C1758; C1769; J1100; J1580; J2001; J2250; J2405; J2704; J3010; J7121; Q9967

== ENCOUNTER → 2024-09-28 | Day surgery (SDC) | payer BC, MEDICARE ==
[2024-09-27 14:57] LABS: BASOPHILS % 0.7 % (0.0-1.0); EOSINOPHILS # (AUTO) 0.1 (0.0-0.4); EOSINOPHILS % 2.4 % (0.0-6.0); HEMATOCRIT 41.2 % (38.2-49.6); HEMOGLOBIN 13.9 g/dL (14.0-18.0); LYMPHOCYTES # (AUTO) 1.4 (1.0-3.2); LYMPHOCYTES % 26.8 % (18.0-39.1); MEAN CORPUSCULAR HEMOGLOBIN 29.9 pg (28-32); MEAN CORPUSCULAR HGB CONC 33.7 g/dL (31-35); MEAN CORPUSCULAR VOLUME 88.6 fL (81-99); MONOCYTES # (AUTO) 0.5 (0.2-0.8); MONOCYTES % 8.4 % (4.4-11.3); NEUTROPHILS # (AUTO) 3.3 (2.1-6.9); NEUTROPHILS % 61.1 % (38.7-80.0); PLATELET COUNT 160 x10e3/uL (140-360); RED BLOOD COUNT 4.65 x10e6/uL (4.3-5.7); RED CELL DISTRIBUTION WIDTH 13.3 % (11.7-14.4); WHITE BLOOD COUNT 5.37 x10e3/uL (4.8-10.8)
[2024-09-27 15:25] LABS: ALBUMIN 4.1 g/dL (3.5-5.0); ALBUMIN/GLOBULIN RATIO 1.4 (0.8-2.0); ANION GAP 14.2 mmol/L (8-16); BILIRUBIN,TOTAL 0.9 mg/dL (0.2-1.2); CALCIUM 9.8 mg/dL (8.4-10.2); CREATININE, SERUM 1.34 mg/dL (0.72-1.25); TOTAL PROTEIN 7.1 g/dL (6.5-8.1); URIC ACID 3.8 mg/dL (4.8-8.0)
[2024-09-27 15:31] LABS: POTASSIUM 3.2 mmol/L (3.5-5.1)
[~2024-09-28] MED LIST changes: +ACETAMINOPHEN 1000 MG/100 ML 100 ML IV ONE; +ALLOPURINOL100 MG PO; +ENTRESTO 24 MG1 EACH PO; -FAMOTIDINE 20 MG/2 ML VIAL IV ONE; -GENTAMICIN 80MG/NS 100 ML 200 ML IV ONE; -GLYCOPYRROLATE INJ 0.2 MG/ML VIAL ONE; -IOPAMIDOL 610MG/1ML 300 MG/ML VIAL IV ONE; -LACTATED RINGER'S 1,000 ML ONE; -MIDAZOLAM HCL 2 MG/2 ML VIAL ONE; +POTASSIUM CHLO10 ME1 PO; -POVIDONE IODINE 0.05% 0.05 % ML PO ONE; +SEVOFLURANE INHAL SOLN 250 ML PEN BTL ONE; +WEGOVY0.25 MG/0.
[2024-09-28] MEDS: LACTATED RINGER'S 1,000 ML ONE (06:07)
[2024-09-28] MEDS: GENTAMICIN 80MG/NS 100 ML 200 ML IV ONE (06:07)
[2024-09-28 10:59] VITALS: TEMP 98.1
[2024-09-28] MEDS: PHENAZOPYRIDINE HCL 100 MG TAB ONE (11:30)
[2024-09-28 12:00] VITALS: BP 128/73; PULSE 60; RESP 16; O2SAT 95
== END | disposition home or self-care (01) ==
LOC: OR 05:37
PROVIDERS: ATTEND Urology
DX: N13.2 Hydronephrosis with renal and ureteral calculous obstruction (principal); N39.0 Urinary tract infection, site not specified; N40.1 Benign prostatic hyperplasia with lower urinary tract symptoms; R39.14 Feeling of incomplete bladder emptying; R35.1 Nocturia; R80.9 Proteinuria, unspecified; Z98.890 Other specified postprocedural states; Z79.02 Long term (current) use of antithrombotics/antiplatelets; Z79.85 Long-term (current) use of injectable non-insulin antidiabetic drugs; Z79.899 Other long term (current) drug therapy; Z68.34 Body mass index [BMI] 34.0-34.9, adult
CPT/HCPCS: 36415; 50590; 52332; 71046; 74018; 80053; 84550; 85025; 87086; C2617; J0131; J1100; J1580; J2003; J2405; J2704; J3010; J7121

== ENCOUNTER → 2024-10-31 | Day surgery (SDC) | payer BC, MEDICARE ==
[2024-10-30 15:38] LABS: BASOPHILS % 0.6 % (0.0-1.0); EOSINOPHILS # (AUTO) 0.3 (0.0-0.4); EOSINOPHILS % 4.4 % (0.0-6.0); HEMATOCRIT 42.8 % (38.2-49.6); HEMOGLOBIN 14.6 g/dL (14.0-18.0); LYMPHOCYTES # (AUTO) 1.6 (1.0-3.2); LYMPHOCYTES % 24.2 % (18.0-39.1); MEAN CORPUSCULAR HEMOGLOBIN 29.9 pg (28-32); MEAN CORPUSCULAR HGB CONC 34.1 g/dL (31-35); MEAN CORPUSCULAR VOLUME 87.7 fL (81-99); MONOCYTES # (AUTO) 0.6 (0.2-0.8); MONOCYTES % 9.1 % (4.4-11.3); NEUTROPHILS # (AUTO) 4.2 (2.1-6.9); NEUTROPHILS % 61.3 % (38.7-80.0); PLATELET COUNT 183 x10e3/uL (140-360); RED BLOOD COUNT 4.88 x10e6/uL (4.3-5.7); RED CELL DISTRIBUTION WIDTH 12.8 % (11.7-14.4); WHITE BLOOD COUNT 6.78 x10e3/uL (4.8-10.8)
[2024-10-30 16:14] LABS: ANION GAP 14.1 mmol/L (8-16); CALCIUM 9.8 mg/dL (8.4-10.2); CREATININE, SERUM 1.72 mg/dL (0.72-1.25); URIC ACID 3.4 mg/dL (4.8-8.0)
[2024-10-30 16:15] LABS: POTASSIUM 3.1 mmol/L (3.5-5.1)
[~2024-10-31] MED LIST changes: +EPHEDRINE SULFATE INJ 50 MG/ML VIAL ONE
[2024-10-31] MEDS: SODIUM CHLORIDE 0.9% 1000ML 1,000 ML ONE (06:20)
[2024-10-31] MEDS: GENTAMICIN 80MG/NS 100 ML 200 ML IV ONE (06:21)
[2024-10-31] MEDS: PHENAZOPYRIDINE HCL 100 MG TAB ONE (11:00)
[2024-10-31 11:10] VITALS: TEMP 97.4
[2024-10-31 12:00] VITALS: BP 125/72; PULSE 57; RESP 16; O2SAT 96
== END | disposition home or self-care (01) ==
LOC: OR 05:59
PROVIDERS: ATTEND Urology
DX: N20.0 Calculus of kidney (principal); Z46.6 Encounter for fitting and adjustment of urinary device; N40.1 Benign prostatic hyperplasia with lower urinary tract symptoms; N13.8 Other obstructive and reflux uropathy; G47.33 Obstructive sleep apnea (adult) (pediatric); I25.810 Atherosclerosis of coronary artery bypass graft(s) without angina pectoris; I11.0 Hypertensive heart disease with heart failure; I50.9 Heart failure, unspecified; E78.5 Hyperlipidemia, unspecified; Z88.1 Allergy status to other antibiotic agents; Z01.812 Encounter for preprocedural laboratory examination; Z01.818 Encounter for other preprocedural examination; Z98.890 Other specified postprocedural states; Z79.02 Long term (current) use of antithrombotics/antiplatelets; Z79.85 Long-term (current) use of injectable non-insulin antidiabetic drugs; Z79.899 Other long term (current) drug therapy; Z95.1 Presence of aortocoronary bypass graft
CPT/HCPCS: 36415; 52356; 74018; 74420; 80048; 84550; 85025; 87086; C1758; C1766; C1769; C2617; J0131; J1100; J1580; J2003; J2405; J2704; J3010; J7030

== ENCOUNTER 2024-11-01 21:44 | Inpatient (IN) | payer BC, MEDICARE ==
[~2024-11-01] VITALS: Ht 182.9 cm; Wt 115.7 kg
[~2024-11-01 21:44] MED LIST changes: -ACETAMINOPHEN 1000 MG/100 ML 100 ML IV ONE; -DEXAMETHASONE SOD PHOS INJ 4 MG/ML SDV ONE; -EPHEDRINE SULFATE INJ 50 MG/ML VIAL ONE; -FENTANYL CITRATE/PF 100MCG/2 ML INJ ONE; -LIDOCAINE HCL 2% LOCAL INJ 5 ML SDV VIAL INJ ONE; -ONDANSETRON HCL INJ 2MG/ML 2ML 2 MG/ML VIAL ONE; -POTASSIUM CHLO10 ME1 PO; -PROPOFOL IV EMULSION 10 MG/ML 20 ML VIAL ONE; -SEVOFLURANE INHAL SOLN 250 ML PEN BTL ONE
[2024-11-01] MEDS: ACETAMINOPHEN 325 MG TAB PO STA (22:06)
[2024-11-01] MEDS: SODIUM CHLORIDE 0.9% 1000ML 1,000 ML IV STA (22:07)
[2024-11-01 22:12] LABS: BASOPHILS % 0.3 % (0.0-1.0); EOSINOPHILS % 0.1 % (0.0-6.0); HEMATOCRIT 39.5 % (38.2-49.6); HEMOGLOBIN 13.6 g/dL (14.0-18.0); LYMPHOCYTES # (AUTO) 1.1 (1.0-3.2); LYMPHOCYTES % 8.7 % (18.0-39.1); MEAN CORPUSCULAR HEMOGLOBIN 29.5 pg (28-32); MEAN CORPUSCULAR HGB CONC 34.4 g/dL (31-35); MEAN CORPUSCULAR VOLUME 85.7 fL (81-99); MONOCYTES # (AUTO) 1.3 (0.2-0.8); MONOCYTES % 10.2 % (4.4-11.3); NEUTROPHILS # (AUTO) 9.9 (2.1-6.9); NEUTROPHILS % 80.4 % (38.7-80.0); PLATELET COUNT 184 x10e3/uL (140-360); RED BLOOD COUNT 4.61 x10e6/uL (4.3-5.7); RED CELL DISTRIBUTION WIDTH 12.9 % (11.7-14.4)
[2024-11-01 22:24] LABS: BILIRUBIN,URINE NEGATIVE (NEGATIVE); CLARITY,URINE TURBID (CLEAR); COLOR,URINE ORANGE (YELLOW); GLUCOSE, URINE NEGATIVE (NEGATIVE); KETONES,URINE NEGATIVE (NEGATIVE); LEUKOCYTE ESTERASE ,URINE LARGE (NEGATIVE); NITRITE,URINE POSITIVE (NEGATIVE); PH,URINE 7 (5 - 7); PROTEIN,URINE DIPSTICK >=300 (NEGATIVE); URINE UROBILINOGEN 1 mg/dL (0.2 - 1)
[2024-11-01 22:27] LABS: ALBUMIN 3.7 g/dL (3.5-5.0); ALBUMIN/GLOBULIN RATIO 1.1 (0.8-2.0); ANION GAP 14.9 mmol/L (8-16); CALCIUM 9.3 mg/dL (8.4-10.2); CREATININE, SERUM 1.59 mg/dL (0.72-1.25); TOTAL PROTEIN 7.1 g/dL (6.5-8.1)
[2024-11-01 22:28] LABS: WHITE BLOOD COUNT 12.37 x10e3/uL (4.8-10.8)
[2024-11-01 22:30] LABS: POTASSIUM 2.9 mmol/L (3.5-5.1)
[2024-11-01 22:40] LABS: BACTERIA,URINE MANY /HPF; EPITHELIAL CELLS,URINE FEW /LPF; RBC,URINE >50 /HPF (0-5); WBC,URINE (MAN) >50 /HPF (0-5)
[2024-11-01 22:42] LABS: TROPONIN I 0.028 ng/mL (0-0.300)
[2024-11-01] MEDS: POTASSIUM CHLORIDE 20 MEQ TAB CR PO STA (22:46)
[2024-11-01] MEDS: POTASSIUM CHLORIDE 20MEQ/100ML 100 ML IV STA (22:46)
[2024-11-01] MEDS ORDERED: SODIUM CHLORIDE 0.9% 1000ML 1,000 ML ONE (23:09)
[2024-11-01 23:10] LABS: CORONAVIRUS COVID-19 AG NEGATIVE (NEGATIVE); INFLUENZA A AG NEGATIVE (NEGATIVE); INFLUENZA B AG NEGATIVE (NEGATIVE)
[2024-11-01] MEDS ORDERED: Morphine 2mg Syringe 2 MG/ML SYR IV PRN (23:15)
[2024-11-01] MEDS ORDERED: ONDANSETRON HCL INJ 2MG/ML 2ML 2 MG/ML VIAL IV PRN (23:15)
[2024-11-01] MEDS: SODIUM CHLORIDE 0.9% 1000ML 2,000 ML IV STA (23:16)
[2024-11-02] VITALS (11 sets, daily range): BP systolic 90–116; BP diastolic 46–58; PULSE 58–83; RESP 16–20; TEMP 97.8–100.2; O2SAT 95–99
[2024-11-02] MEDS: SODIUM CHLORIDE 0.9% 1000ML 1,000 ML IV SCH (01:14)
[2024-11-02 06:24] LABS: BASOPHILS # (AUTO) 0.1 (0.0-0.1); BASOPHILS % 0.4 % (0.0-1.0); EOSINOPHILS % 0.1 % (0.0-6.0); HEMATOCRIT 33.4 % (38.2-49.6); HEMOGLOBIN 11.3 g/dL (14.0-18.0); LYMPHOCYTES # (AUTO) 1.4 (1.0-3.2); LYMPHOCYTES % 12.3 % (18.0-39.1); MEAN CORPUSCULAR HEMOGLOBIN 29.9 pg (28-32); MEAN CORPUSCULAR HGB CONC 33.8 g/dL (31-35); MEAN CORPUSCULAR VOLUME 88.4 fL (81-99); MONOCYTES # (AUTO) 1.2 (0.2-0.8); MONOCYTES % 10.3 % (4.4-11.3); NEUTROPHILS # (AUTO) 8.7 (2.1-6.9); NEUTROPHILS % 76.5 % (38.7-80.0); PLATELET COUNT 125 x10e3/uL (140-360); RED BLOOD COUNT 3.78 x10e6/uL (4.3-5.7); WHITE BLOOD COUNT 11.38 x10e3/uL (4.8-10.8)
[2024-11-02 07:06] LABS: TROPONIN I 0.019 ng/mL (0-0.300)
[2024-11-02 07:08] LABS: ALBUMIN 2.9 g/dL (3.5-5.0); ALBUMIN/GLOBULIN RATIO 1.1 (0.8-2.0); ANION GAP 10.7 mmol/L (8-16); BILIRUBIN,TOTAL 1.3 mg/dL (0.2-1.2); CALCIUM 8.2 mg/dL (8.4-10.2); CREATININE, SERUM 1.41 mg/dL (0.72-1.25); TOTAL PROTEIN 5.6 g/dL (6.5-8.1)
[2024-11-02 07:11] LABS: POTASSIUM 2.7 mmol/L (3.5-5.1)
[2024-11-02] MEDS: POTASSIUM CHLORIDE 20 MEQ TAB CR PO ONE (09:16)
[2024-11-02] MEDS: POTASSIUM CHLORIDE 20 MEQ TAB CR PO SCH (09:16)
[2024-11-02] MEDS ORDERED: HYDRALAZINE HCL 20 MG/ML VIAL IV PRN (11:00)
[2024-11-02] MEDS ORDERED: BISACODYL 10 MG SUPP PR PRN (11:00)
[2024-11-02] MEDS ORDERED: POLYETHYLENE GLYCOL 3350 17 GM PACK PO PRN (11:00)
[2024-11-02 14:16] LABS: TROPONIN I 0.023 ng/mL (0-0.300)
[2024-11-02] MEDS: ACETAMINOPHEN 325 MG TAB PO PRN (15:48)
[2024-11-03] VITALS (8 sets, daily range): BP systolic 96–118; BP diastolic 53–77; PULSE 56–65; RESP 18; TEMP 97.8–98.4; O2SAT 95–98
[2024-11-03 06:43] LABS: BASOPHILS % 0.2 % (0.0-1.0); EOSINOPHILS % 0.1 % (0.0-6.0); HEMATOCRIT 32.4 % (38.2-49.6); LYMPHOCYTES # (AUTO) 0.8 (1.0-3.2); MEAN CORPUSCULAR HEMOGLOBIN 29.6 pg (28-32); MEAN CORPUSCULAR VOLUME 87.3 fL (81-99); MONOCYTES # (AUTO) 0.7 (0.2-0.8); NEUTROPHILS # (AUTO) 10.1 (2.1-6.9); NEUTROPHILS % 86.3 % (38.7-80.0); PLATELET COUNT 129 x10e3/uL (140-360); RED BLOOD COUNT 3.71 x10e6/uL (4.3-5.7); WHITE BLOOD COUNT 11.75 x10e3/uL (4.8-10.8)
[2024-11-03 07:17] LABS: ALBUMIN 2.8 g/dL (3.5-5.0); ALBUMIN/GLOBULIN RATIO 0.9 (0.8-2.0); ANION GAP 11.8 mmol/L (8-16); CALCIUM 8.6 mg/dL (8.4-10.2); CREATININE, SERUM 1.13 mg/dL (0.72-1.25); MAGNESIUM 2.1 MG/DL (1.3-2.1); TOTAL PROTEIN 5.8 g/dL (6.5-8.1)
[2024-11-03 07:23] LABS: POTASSIUM 2.8 mmol/L (3.5-5.1)
[2024-11-03 07:30] LABS: FOLATE 7.6 ng/mL (7.0-15.4)
[2024-11-03 07:38] LABS: FERRITIN 387.42 ng/mL (21.81-274.66)
[2024-11-03] MEDS: POTASSIUM CHLORIDE 10MEQ EA PO ONE ×2 (08:33→13:00)
[2024-11-03] MEDS: DOCUSATE SODIUM 100 MG CAP PO SCH (08:34)
[2024-11-03] MEDS: SENNOSIDES 8.6 MG TAB PO SCH (08:34)
[2024-11-03] MEDS ORDERED: POTASSIUM CHLORIDE 20 MEQ TAB CR PO SCH (13:30)
[2024-11-04] VITALS (8 sets, daily range): BP systolic 103–133; BP diastolic 60–72; PULSE 54–65; RESP 18; TEMP 97.1–98.9; O2SAT 96–100
[2024-11-04 05:45] LABS: BASOPHILS % 0.4 % (0.0-1.0); EOSINOPHILS # (AUTO) 0.1 (0.0-0.4); EOSINOPHILS % 1.2 % (0.0-6.0); HEMATOCRIT 31.5 % (38.2-49.6); HEMOGLOBIN 10.6 g/dL (14.0-18.0); LYMPHOCYTES # (AUTO) 1.1 (1.0-3.2); LYMPHOCYTES % 14.8 % (18.0-39.1); MEAN CORPUSCULAR HEMOGLOBIN 29.4 pg (28-32); MEAN CORPUSCULAR HGB CONC 33.7 g/dL (31-35); MEAN CORPUSCULAR VOLUME 87.5 fL (81-99); MONOCYTES # (AUTO) 0.6 (0.2-0.8); MONOCYTES % 7.7 % (4.4-11.3); NEUTROPHILS # (AUTO) 5.6 (2.1-6.9); PLATELET COUNT 147 x10e3/uL (140-360); RED CELL DISTRIBUTION WIDTH 13.1 % (11.7-14.4); WHITE BLOOD COUNT 7.45 x10e3/uL (4.8-10.8)
[2024-11-04 06:13] LABS: ANION GAP 12.7 mmol/L (8-16); CALCIUM 8.8 mg/dL (8.4-10.2); CREATININE, SERUM 1.18 mg/dL (0.72-1.25)
[2024-11-04 06:24] LABS: POTASSIUM 2.7 mmol/L (3.5-5.1)
[2024-11-04] MEDS: POTASSIUM CHLORIDE 10MEQ EA PO ONE (09:02)
[2024-11-04] MEDS: SODIUM CHLORIDE 0.9% 250ML 250 ML ONE (22:25)
[2024-11-05 04:00] VITALS: BP 96/70; PULSE 63; RESP 20; TEMP 98.4; O2SAT 97
[2024-11-05 05:48] LABS: BASOPHILS % 0.7 % (0.0-1.0); EOSINOPHILS # (AUTO) 0.1 (0.0-0.4); EOSINOPHILS % 2.9 % (0.0-6.0); HEMOGLOBIN 10.8 g/dL (14.0-18.0); LYMPHOCYTES % 23.5 % (18.0-39.1); MEAN CORPUSCULAR HEMOGLOBIN 29.5 pg (28-32); MEAN CORPUSCULAR HGB CONC 33.8 g/dL (31-35); MEAN CORPUSCULAR VOLUME 87.4 fL (81-99); MONOCYTES # (AUTO) 0.5 (0.2-0.8); MONOCYTES % 11.1 % (4.4-11.3); NEUTROPHILS # (AUTO) 2.5 (2.1-6.9); NEUTROPHILS % 60.1 % (38.7-80.0); PLATELET COUNT 142 x10e3/uL (140-360); RED BLOOD COUNT 3.66 x10e6/uL (4.3-5.7); RED CELL DISTRIBUTION WIDTH 13.5 % (11.7-14.4); WHITE BLOOD COUNT 4.13 x10e3/uL (4.8-10.8)
[2024-11-05 06:11] LABS: ANION GAP 12.1 mmol/L (8-16); CALCIUM 8.6 mg/dL (8.4-10.2); CREATININE, SERUM 1.25 mg/dL (0.72-1.25)
[2024-11-05 06:12] LABS: POTASSIUM 3.1 mmol/L (3.5-5.1)
[2024-11-05 08:31] VITALS: BP 108/72; PULSE 61; RESP 18; TEMP 97.8; O2SAT 99
[2024-11-05 08:45] VITALS: BP 108/72; PULSE 61; RESP 18; TEMP 97.8; O2SAT 99
[2024-11-05 12:00] VITALS: BP 112/71; PULSE 64; RESP 15; TEMP 98.2; O2SAT 98
[2024-11-05] MEDS: POTASSIUM CHLORIDE 20 MEQ TAB CR PO STA (14:45)
[2024-11-05] MEDS ORDERED: POTASSIUM CHLORIDE 20 MEQ TAB CR PO ONE (16:00)
[2024-11-05 20:00] VITALS: BP 108/62; PULSE 64; RESP 20; TEMP 98.8; O2SAT 98
[2024-11-06] VITALS: BP 106/64; PULSE 72; RESP 20; TEMP 98.3; O2SAT 96
[2024-11-06 04:00] VITALS: BP 105/62; PULSE 58; RESP 18; TEMP 98; O2SAT 97
[2024-11-06 06:22] LABS: BASOPHILS % 0.6 % (0.0-1.0); EOSINOPHILS # (AUTO) 0.2 (0.0-0.4); HEMATOCRIT 33.8 % (38.2-49.6); HEMOGLOBIN 11.2 g/dL (14.0-18.0); LYMPHOCYTES # (AUTO) 1.3 (1.0-3.2); MEAN CORPUSCULAR HEMOGLOBIN 29.2 pg (28-32); MEAN CORPUSCULAR HGB CONC 33.1 g/dL (31-35); MONOCYTES # (AUTO) 0.7 (0.2-0.8); MONOCYTES % 13.8 % (4.4-11.3); NEUTROPHILS # (AUTO) 2.4 (2.1-6.9); NEUTROPHILS % 49.3 % (38.7-80.0); PLATELET COUNT 150 x10e3/uL (140-360); RED BLOOD COUNT 3.84 x10e6/uL (4.3-5.7); RED CELL DISTRIBUTION WIDTH 13.5 % (11.7-14.4); WHITE BLOOD COUNT 4.78 x10e3/uL (4.8-10.8)
[2024-11-06 06:47] LABS: ALBUMIN 2.8 g/dL (3.5-5.0); ANION GAP 11.3 mmol/L (8-16); BILIRUBIN,TOTAL 0.5 mg/dL (0.2-1.2); CALCIUM 8.5 mg/dL (8.4-10.2); CREATININE, SERUM 1.06 mg/dL (0.72-1.25); TOTAL PROTEIN 5.6 g/dL (6.5-8.1)
[2024-11-06 06:53] LABS: POTASSIUM 3.3 mmol/L (3.5-5.1)
[2024-11-06] MEDS ORDERED: POTASSIUM CHLO10 ME1 PO (09:01)
[2024-11-06] MEDS: POTASSIUM CHLORIDE 20 MEQ TAB CR PO ONE (09:27)
== END 2024-11-06 11:04 | disposition home health service (06) | DRG 871 ==
LOC: ER 21:52 → ERHOLD 23:07 → MED/SURG2 11-02 01:44
PROVIDERS: ADMIT Internal Medicine; ATTEND Internal Medicine
PROC: 3E03329 Introduction of Other Anti-infective into Peripheral Vein, Percutaneous Approach (ICD-10-PCS; 2024-11-01)
PROC: 02HV33Z Insertion of Infusion Device into Superior Vena Cava, Percutaneous Approach (ICD-10-PCS; principal; 2024-11-04)
PROC: B548ZZA Ultrasonography of Superior Vena Cava, Guidance (ICD-10-PCS; 2024-11-04)
DX: A41.51 Sepsis due to Escherichia coli [E. coli] (principal); N17.0 Acute kidney failure with tubular necrosis; Z16.12 Extended spectrum beta lactamase (ESBL) resistance; N30.01 Acute cystitis with hematuria; R65.20 Severe sepsis without septic shock; N20.0 Calculus of kidney; Z96.0 Presence of urogenital implants; E78.5 Hyperlipidemia, unspecified; I49.3 Ventricular premature depolarization; E78.2 Mixed hyperlipidemia; I11.9 Hypertensive heart disease without heart failure; I25.10 Atherosclerotic heart disease of native coronary artery without angina pectoris; Z95.1 Presence of aortocoronary bypass graft; Z95.5 Presence of coronary angioplasty implant and graft; Z87.891 Personal history of nicotine dependence; E87.6 Hypokalemia; D64.9 Anemia, unspecified; G47.33 Obstructive sleep apnea (adult) (pediatric); E66.811 Obesity, class 1; Z68.34 Body mass index [BMI] 34.0-34.9, adult; N40.0 Benign prostatic hyperplasia without lower urinary tract symptoms; N13.5 Crossing vessel and stricture of ureter without hydronephrosis; M15.0 Primary generalized (osteo)arthritis; Z90.79 Acquired absence of other genital organ(s); Z79.899 Other long term (current) drug therapy; Z79.82 Long term (current) use of aspirin; Z79.02 Long term (current) use of antithrombotics/antiplatelets; Z11.52 Encounter for screening for COVID-19
CPT/HCPCS: 36415; 36569; 71045; 74018; 80048; 80053; 81001; 82550; 82607; 82728; 82746; 83540; 83605; 83735; 84132; 84466; 84484; 85025; 87040; 87086; 87186; 93005; 99284; J1335; J2543; J3480; J7030; J7050

== ENCOUNTER 2024-11-30 17:54 | Inpatient (IN) | payer BC, MEDICARE ==
[~2024-11-30] VITALS: Ht 182.9 cm; Wt 115.7 kg
[~2024-11-30 17:54] MED LIST changes: +POTASSIUM CHLO10 ME1 PO
[2024-11-30] MEDS ORDERED: ACETAMINOPHEN 325 MG TAB PO ONE (19:00)
[2024-11-30 19:15] LABS: BASOPHILS % 0.2 % (0.0-1.0); HEMATOCRIT 31.2 % (38.2-49.6); HEMOGLOBIN 10.7 g/dL (14.0-18.0); LYMPHOCYTES # (AUTO) 0.8 (1.0-3.2); LYMPHOCYTES % 7.7 % (18.0-39.1); MEAN CORPUSCULAR HEMOGLOBIN 29.4 pg (28-32); MEAN CORPUSCULAR HGB CONC 34.3 g/dL (31-35); MEAN CORPUSCULAR VOLUME 85.7 fL (81-99); MONOCYTES # (AUTO) 1.1 (0.2-0.8); MONOCYTES % 10.2 % (4.4-11.3); NEUTROPHILS # (AUTO) 8.7 (2.1-6.9); NEUTROPHILS % 81.4 % (38.7-80.0); PLATELET COUNT 148 x10e3/uL (140-360); RED BLOOD COUNT 3.64 x10e6/uL (4.3-5.7); WHITE BLOOD COUNT 10.74 x10e3/uL (4.8-10.8)
[2024-11-30 19:29] LABS: INR 1.04; PROTHROMBIN TIME 14.2 seconds (11.9-14.5)
[2024-11-30 19:30] LABS: PARTIAL THROMBOPLASTIN TIME 28.5 seconds (23.8-35.5)
[2024-11-30 19:36] LABS: ALBUMIN 3.1 g/dL (3.5-5.0); ALBUMIN/GLOBULIN RATIO 0.8 (0.8-2.0); ANION GAP 17.1 mmol/L (8-16); BILIRUBIN,TOTAL 0.9 mg/dL (0.2-1.2); CREATININE, SERUM 1.92 mg/dL (0.72-1.25); POTASSIUM 3.1 mmol/L (3.5-5.1); TOTAL PROTEIN 6.8 g/dL (6.5-8.1)
[2024-11-30 19:42] LABS: TROPONIN I 0.013 ng/mL (0-0.300)
[2024-11-30] MEDS: SODIUM CHLORIDE 0.9% 1000ML 1,000 ML IV ONE ×2 (20:03→21:38)
[2024-11-30] MEDS: MEROPENEM 1 GM in SODIUM CHLORIDE 0.9% 100 ML IV ONE (20:04)
[2024-11-30] MEDS: IBUPROFEN 600 MG TAB PO STA (20:04)
[2024-11-30 21:27] LABS: BILIRUBIN,URINE NEGATIVE (NEGATIVE); CLARITY,URINE HAZY (CLEAR); COLOR,URINE YELLOW (YELLOW); GLUCOSE, URINE NEGATIVE (NEGATIVE); KETONES,URINE NEGATIVE (NEGATIVE); LEUKOCYTE ESTERASE ,URINE LARGE (NEGATIVE); NITRITE,URINE POSITIVE (NEGATIVE); PH,URINE 6 (5 - 7); PROTEIN,URINE DIPSTICK >=300 (NEGATIVE); URINE UROBILINOGEN 0.2 mg/dL (0.2 - 1)
[2024-11-30] MEDS ORDERED: SODIUM CHLORIDE 0.9% 1000ML 1,000 ML ONE (21:27)
[2024-11-30 21:45] LABS: AMORPHOUS SEDIMENT,URINE MODERATE; BACTERIA,URINE MODERATE /HPF; WBC,URINE (MAN) >50 /HPF (0-5)
[2024-11-30 23:00] VITALS: BP 90/50; PULSE 67; RESP 20; TEMP 97.4; O2SAT 96
[2024-11-30] MEDS: SODIUM CHLORIDE 0.9% 1000ML 1,000 ML IV SCH (23:04)
[2024-11-30] MEDS ORDERED: ONDANSETRON HCL INJ 2MG/ML 2ML 2 MG/ML VIAL IV PRN (23:45)
[2024-12-01] VITALS (15 sets, daily range): BP systolic 89–108; BP diastolic 50–71; PULSE 58–78; RESP 14–20; TEMP 97.4–209.5; O2SAT 93–100
[2024-12-01] MEDS: MEROPENEM 1 GM in SODIUM CHLORIDE 0.9% 100 ML IV SCH (06:51)
[2024-12-01 07:45] LABS: BASOPHILS % 0.2 % (0.0-1.0); EOSINOPHILS % 0.3 % (0.0-6.0); HEMATOCRIT 29.6 % (38.2-49.6); HEMOGLOBIN 9.9 g/dL (14.0-18.0); LYMPHOCYTES # (AUTO) 0.8 (1.0-3.2); LYMPHOCYTES % 9.1 % (18.0-39.1); MEAN CORPUSCULAR HEMOGLOBIN 29.5 pg (28-32); MEAN CORPUSCULAR HGB CONC 33.4 g/dL (31-35); MEAN CORPUSCULAR VOLUME 88.1 fL (81-99); MONOCYTES # (AUTO) 1.1 (0.2-0.8); MONOCYTES % 12.4 % (4.4-11.3); NEUTROPHILS # (AUTO) 6.9 (2.1-6.9); NEUTROPHILS % 77.3 % (38.7-80.0); PLATELET COUNT 132 x10e3/uL (140-360); RED BLOOD COUNT 3.36 x10e6/uL (4.3-5.7); RED CELL DISTRIBUTION WIDTH 13.2 % (11.7-14.4); WHITE BLOOD COUNT 8.92 x10e3/uL (4.8-10.8)
[2024-12-01 08:21] LABS: ALBUMIN 2.6 g/dL (3.5-5.0); ALBUMIN/GLOBULIN RATIO 0.8 (0.8-2.0); ANION GAP 14.2 mmol/L (8-16); BILIRUBIN,TOTAL 0.6 mg/dL (0.2-1.2); CALCIUM 8.6 mg/dL (8.4-10.2); CREATININE, SERUM 1.43 mg/dL (0.72-1.25); TOTAL PROTEIN 5.9 g/dL (6.5-8.1)
[2024-12-01 08:24] LABS: POTASSIUM 3.2 mmol/L (3.5-5.1)
[2024-12-01] MEDS: POTASSIUM CHLORIDE 20 MEQ TAB CR PO STA (09:57)
[2024-12-01] MEDS ORDERED: DEXTROSE 50% SYRINGE 50 ML IV PRN (10:00)
[2024-12-01] MEDS ORDERED: FAMOTIDINE 20 MG TAB PO PRN (10:00)
[2024-12-01] MEDS: POLYETHYLENE GLYCOL 3350 17 GM PACK PO SCH (11:00)
[2024-12-01] MEDS: INSULIN REGULAR, HUMAN 100 UNIT/1 ML SQ SCH (11:30)
[2024-12-01] MEDS: SOLIFENACIN SUCCINATE 5 MG TAB PO SCH (11:52)
[2024-12-01] MEDS: ALLOPURINOL 100 MG TAB PO SCH (11:52)
[2024-12-01] MEDS: FINASTERIDE 5 MG TAB PO SCH (11:52)
[2024-12-01 15:22] LABS: B-TYPE NATRIURETIC PEPTIDE2 46.5 pg/mL (0-100)
[2024-12-01] MEDS: ACETAMINOPHEN 325 MG TAB PO PRN (15:41)
[2024-12-01 19:48] LABS: CORONAVIRUS COVID-19 AG NEGATIVE (NEGATIVE); INFLUENZA A AG NEGATIVE (NEGATIVE); INFLUENZA B AG NEGATIVE (NEGATIVE)
[2024-12-01] MEDS: ATORVASTATIN 40 MG TAB PO SCH (20:51)
[2024-12-01] MEDS: Vancomycin IV 1 GM in SODIUM CHLORIDE 0.9% 250ML 250 ML IV SCH (20:53)
[2024-12-01] MEDS ORDERED: MELATONIN 5 MG TABLET PO PRN (21:00)
[2024-12-02] VITALS (10 sets, daily range): BP systolic 103–132; BP diastolic 57–65; PULSE 53–65; RESP 16–20; TEMP 97.7–98.3; O2SAT 93–98
[2024-12-02 06:16] LABS: BASOPHILS % 0.5 % (0.0-1.0); EOSINOPHILS # (AUTO) 0.1 (0.0-0.4); EOSINOPHILS % 1.5 % (0.0-6.0); HEMATOCRIT 29.8 % (38.2-49.6); HEMOGLOBIN 9.7 g/dL (14.0-18.0); LYMPHOCYTES # (AUTO) 1.3 (1.0-3.2); LYMPHOCYTES % 19.3 % (18.0-39.1); MEAN CORPUSCULAR HEMOGLOBIN 29.3 pg (28-32); MEAN CORPUSCULAR HGB CONC 32.6 g/dL (31-35); MONOCYTES # (AUTO) 0.8 (0.2-0.8); MONOCYTES % 12.8 % (4.4-11.3); NEUTROPHILS # (AUTO) 4.2 (2.1-6.9); NEUTROPHILS % 64.7 % (38.7-80.0); PLATELET COUNT 142 x10e3/uL (140-360); RED BLOOD COUNT 3.31 x10e6/uL (4.3-5.7); RED CELL DISTRIBUTION WIDTH 13.1 % (11.7-14.4); WHITE BLOOD COUNT 6.48 x10e3/uL (4.8-10.8)
[2024-12-02 06:45] LABS: ALBUMIN 2.4 g/dL (3.5-5.0); ALBUMIN/GLOBULIN RATIO 0.7 (0.8-2.0); ANION GAP 13.2 mmol/L (8-16); BILIRUBIN,TOTAL 0.5 mg/dL (0.2-1.2); CALCIUM 8.6 mg/dL (8.4-10.2); CREATININE, SERUM 1.14 mg/dL (0.72-1.25); TOTAL PROTEIN 5.7 g/dL (6.5-8.1)
[2024-12-02 06:47] LABS: POTASSIUM 3.2 mmol/L (3.5-5.1)
[2024-12-02] MEDS: POTASSIUM CHLORIDE 20 MEQ TAB CR PO STA (08:44)
[2024-12-02 08:51] LABS: FERRITIN 694.7 ng/mL (21.81-274.66)
[2024-12-02] MEDS: CYANOCOBALAMIN 1,000 MCG TAB PO SCH (11:45)
[2024-12-03] VITALS: BP 108/61; PULSE 57; RESP 17; TEMP 98.1; O2SAT 98
[2024-12-03 04:00] VITALS: BP 104/63; PULSE 56; RESP 18; TEMP 98.1; O2SAT 97
[2024-12-03 06:18] LABS: BASOPHILS % 0.8 % (0.0-1.0); EOSINOPHILS # (AUTO) 0.2 (0.0-0.4); EOSINOPHILS % 4.3 % (0.0-6.0); HEMATOCRIT 27.4 % (38.2-49.6); LYMPHOCYTES # (AUTO) 1.1 (1.0-3.2); LYMPHOCYTES % 27.7 % (18.0-39.1); MEAN CORPUSCULAR HGB CONC 32.8 g/dL (31-35); MEAN CORPUSCULAR VOLUME 88.4 fL (81-99); MONOCYTES # (AUTO) 0.5 (0.2-0.8); MONOCYTES % 11.7 % (4.4-11.3); NEUTROPHILS % 50.7 % (38.7-80.0); PLATELET COUNT 155 x10e3/uL (140-360); RED CELL DISTRIBUTION WIDTH 13.3 % (11.7-14.4); WHITE BLOOD COUNT 3.93 x10e3/uL (4.8-10.8)
[2024-12-03 06:46] LABS: ALBUMIN 2.3 g/dL (3.5-5.0); ALBUMIN/GLOBULIN RATIO 0.7 (0.8-2.0); ANION GAP 12.4 mmol/L (8-16); BILIRUBIN,TOTAL 0.3 mg/dL (0.2-1.2); CALCIUM 8.7 mg/dL (8.4-10.2); CREATININE, SERUM 1.04 mg/dL (0.72-1.25); MAGNESIUM 2.1 MG/DL (1.3-2.1); TOTAL PROTEIN 5.4 g/dL (6.5-8.1)
[2024-12-03 06:55] LABS: POTASSIUM 3.4 mmol/L (3.5-5.1)
[2024-12-03 07:30] VITALS: BP 98/58; PULSE 57; RESP 16; TEMP 98.1; O2SAT 97
[2024-12-03 08:00] VITALS: BP 98/58; PULSE 57; RESP 16; TEMP 98; O2SAT 95
[2024-12-03] MEDS: LEVOFLOXACIN 500MG/D5W 100ML 100 ML IV SCH (09:36)
[2024-12-03 16:00] VITALS: BP 115/71; PULSE 57; RESP 17; TEMP 97.7; O2SAT 96
[2024-12-03 19:36] VITALS: BP 131/72; PULSE 61; RESP 20; TEMP 98.1; O2SAT 97
[2024-12-04] VITALS (8 sets, daily range): BP systolic 111–134; BP diastolic 67–75; PULSE 51–67; RESP 18; TEMP 97.2–98.1; O2SAT 96–99
[2024-12-04 06:32] LABS: BASOPHILS # (AUTO) 0.1 (0.0-0.1); BASOPHILS % 1.2 % (0.0-1.0); EOSINOPHILS # (AUTO) 0.2 (0.0-0.4); EOSINOPHILS % 4.5 % (0.0-6.0); HEMOGLOBIN 9.3 g/dL (14.0-18.0); LYMPHOCYTES # (AUTO) 1.3 (1.0-3.2); LYMPHOCYTES % 24.7 % (18.0-39.1); MEAN CORPUSCULAR HEMOGLOBIN 29.2 pg (28-32); MEAN CORPUSCULAR HGB CONC 33.2 g/dL (31-35); MEAN CORPUSCULAR VOLUME 88.1 fL (81-99); MONOCYTES # (AUTO) 0.5 (0.2-0.8); MONOCYTES % 9.5 % (4.4-11.3); NEUTROPHILS # (AUTO) 2.6 (2.1-6.9); NEUTROPHILS % 50.6 % (38.7-80.0); PLATELET COUNT 168 x10e3/uL (140-360); RED BLOOD COUNT 3.18 x10e6/uL (4.3-5.7); RED CELL DISTRIBUTION WIDTH 13.2 % (11.7-14.4); WHITE BLOOD COUNT 5.14 x10e3/uL (4.8-10.8)
[2024-12-04 07:03] LABS: ALBUMIN 2.5 g/dL (3.5-5.0); ALBUMIN/GLOBULIN RATIO 0.8 (0.8-2.0); ANION GAP 11.4 mmol/L (8-16); BILIRUBIN,TOTAL 0.3 mg/dL (0.2-1.2); CALCIUM 8.8 mg/dL (8.4-10.2); CREATININE, SERUM 0.94 mg/dL (0.72-1.25); TOTAL PROTEIN 5.6 g/dL (6.5-8.1)
[2024-12-04 07:05] LABS: POTASSIUM 3.4 mmol/L (3.5-5.1)
[2024-12-04] MEDS: POTASSIUM CHLORIDE 20 MEQ TAB CR PO ONE (10:07)
[2024-12-05 05:00] VITALS: BP 130/75; PULSE 64; RESP 18; TEMP 98.1; O2SAT 96
[2024-12-05 07:39] LABS: BASOPHILS % 0.7 % (0.0-1.0); EOSINOPHILS # (AUTO) 0.2 (0.0-0.4); EOSINOPHILS % 3.2 % (0.0-6.0); HEMATOCRIT 31.6 % (38.2-49.6); HEMOGLOBIN 10.2 g/dL (14.0-18.0); LYMPHOCYTES # (AUTO) 1.2 (1.0-3.2); MEAN CORPUSCULAR HEMOGLOBIN 29.3 pg (28-32); MEAN CORPUSCULAR HGB CONC 32.3 g/dL (31-35); MEAN CORPUSCULAR VOLUME 90.8 fL (81-99); MONOCYTES # (AUTO) 0.3 (0.2-0.8); NEUTROPHILS # (AUTO) 3.4 (2.1-6.9); NEUTROPHILS % 60.6 % (38.7-80.0); PLATELET COUNT 191 x10e3/uL (140-360); RED BLOOD COUNT 3.48 x10e6/uL (4.3-5.7); RED CELL DISTRIBUTION WIDTH 13.2 % (11.7-14.4); WHITE BLOOD COUNT 5.66 x10e3/uL (4.8-10.8)
[2024-12-05 08:00] VITALS: BP 129/77; PULSE 58; RESP 20; TEMP 98; O2SAT 97
[2024-12-05 08:28] LABS: ALBUMIN 2.8 g/dL (3.5-5.0); ALBUMIN/GLOBULIN RATIO 0.8 (0.8-2.0); ANION GAP 13.9 mmol/L (8-16); CALCIUM 9.3 mg/dL (8.4-10.2); CREATININE, SERUM 0.93 mg/dL (0.72-1.25); MAGNESIUM 2.1 MG/DL (1.3-2.1); POTASSIUM 3.9 mmol/L (3.5-5.1); TOTAL PROTEIN 6.2 g/dL (6.5-8.1)
[2024-12-05 08:39] LABS: BILIRUBIN,TOTAL 0.4 mg/dL (0.2-1.2)
[2024-12-05 09:00] VITALS: BP 129/77; PULSE 58; RESP 20; TEMP 98; O2SAT 97
[2024-12-05] MEDS: LEVOFLOXACIN 500MG/D5W 100ML 100 ML IV SCH (10:53)
[2024-12-05 12:00] VITALS: BP 131/94; PULSE 59; RESP 18; TEMP 97.7; O2SAT 96
[2024-12-05] MEDS ORDERED: PROPOFOL IV EMULSION 10 MG/ML 20 ML VIAL ONE (13:36)
[2024-12-05] MEDS ORDERED: LIDOCAINE HCL 2% LOCAL INJ 5 ML SDV VIAL INJ ONE (13:37)
[2024-12-05] MEDS ORDERED: FENTANYL CITRATE/PF 100MCG/2 ML INJ ONE (14:09)
[2024-12-05] MEDS ORDERED: SEVOFLURANE INHAL SOLN 250 ML PEN BTL ONE (14:09)
[2024-12-05] MEDS ORDERED: DEXAMETHASONE SOD PHOS INJ 4 MG/ML SDV ONE ×2 (14:14→14:32)
[2024-12-05] MEDS ORDERED: ACETAMINOPHEN 1000 MG/100 ML 100 ML IV ONE (14:14)
[2024-12-05] MEDS ORDERED: ONDANSETRON HCL INJ 2MG/ML 2ML 2 MG/ML VIAL ONE (14:14)
[2024-12-05] MEDS ORDERED: EPHEDRINE SULFATE INJ 50 MG/ML VIAL ONE (14:29)
[2024-12-05 20:00] VITALS: BP 136/73; PULSE 67; RESP 17; TEMP 97.5; O2SAT 100
[2024-12-05 22:34] VITALS: BP 136/73; PULSE 67; RESP 17; TEMP 97.5; O2SAT 100
[2024-12-06] VITALS: BP 125/66; PULSE 55; RESP 19; TEMP 97.6; O2SAT 96
[2024-12-06 04:00] VITALS: BP 129/88; PULSE 54; RESP 17; TEMP 97.6; O2SAT 95
[2024-12-06 08:37] VITALS: BP 139/77; PULSE 64; RESP 18; TEMP 97.8; O2SAT 98
[2024-12-06 08:46] LABS: CREATININE, SERUM 0.99 mg/dL (0.72-1.25)
[2024-12-06 09:04] VITALS: BP 139/77; PULSE 57; RESP 18; TEMP 97.8; O2SAT 97
[2024-12-06] MEDS: SACUBITRIL/VALSARTAN 24MG/26MG 1 EA TAB PO SCH (09:33)
[2024-12-07] MEDS ORDERED: LEVOFLOXACIN 500 MG TAB PO SCH (09:00)
[2024-12-21] MEDS ORDERED: LEVOFLOXACIN500 MG PO (10:45)
[2024-12-21] MEDS ORDERED: MOUNJARO5 MG/0.5 M SQ (10:45)
== END 2024-12-06 12:08 | disposition home or self-care (01) | DRG 659 ==
LOC: ER 18:59 → ERHOLD 23:36 → MED/SURG3 12-01 00:17
PROVIDERS: ADMIT Family Medicine Adult Medicine; ATTEND Family Medicine Adult Medicine
PROC: 3E03329 Introduction of Other Anti-infective into Peripheral Vein, Percutaneous Approach (ICD-10-PCS; 2024-11-30)
PROC: 0TC68ZZ Extirpation of Matter from Right Ureter, Via Natural or Artificial Opening Endoscopic (ICD-10-PCS; 2024-12-05)
PROC: 0TP98DZ Removal of Intraluminal Device from Ureter, Via Natural or Artificial Opening Endoscopic (ICD-10-PCS; 2024-12-05)
PROC: 0TP98DZ Removal of Intraluminal Device from Ureter, Via Natural or Artificial Opening Endoscopic (ICD-10-PCS; 2024-12-05)
PROC: BT141ZZ Fluoroscopy of Kidneys, Ureters and Bladder using Low Osmolar Contrast (ICD-10-PCS; 2024-12-05)
PROC: 0T788DZ Dilation of Bilateral Ureters with Intraluminal Device, Via Natural or Artificial Opening Endoscopic (ICD-10-PCS; principal; 2024-12-05 14:07)
PROC: 0TC78ZZ Extirpation of Matter from Left Ureter, Via Natural or Artificial Opening Endoscopic (ICD-10-PCS; 2024-12-05 14:07)
DX: T83.592A Infection and inflammatory reaction due to indwelling ureteral stent, initial encounter (principal); A41.51 Sepsis due to Escherichia coli [E. coli]; N39.0 Urinary tract infection, site not specified; N17.9 Acute kidney failure, unspecified; Z16.24 Resistance to multiple antibiotics; N13.8 Other obstructive and reflux uropathy; N40.1 Benign prostatic hyperplasia with lower urinary tract symptoms; Z46.6 Encounter for fitting and adjustment of urinary device; I12.9 Hypertensive chronic kidney disease with stage 1 through stage 4 chronic kidney disease, or unspecified chronic kidney disease; N18.9 Chronic kidney disease, unspecified; I25.10 Atherosclerotic heart disease of native coronary artery without angina pectoris; Z95.1 Presence of aortocoronary bypass graft; Z95.5 Presence of coronary angioplasty implant and graft; G47.33 Obstructive sleep apnea (adult) (pediatric); I95.9 Hypotension, unspecified; D63.1 Anemia in chronic kidney disease; Z87.891 Personal history of nicotine dependence; R73.03 Prediabetes; D50.9 Iron deficiency anemia, unspecified; E53.8 Deficiency of other specified B group vitamins; Q54.9 Hypospadias, unspecified; Y92.009 Unspecified place in unspecified non-institutional (private) residence as the place of occurrence of the external cause; Z79.02 Long term (current) use of antithrombotics/antiplatelets; Z79.899 Other long term (current) drug therapy
CPT/HCPCS: 36415; 71045; 74176; 80048; 80053; 81001; 82550; 82607; 82728; 82746; 83036; 83540; 83605; 83735; 83880; 84466; 84484; 85025; 85045; 85610; 85730; 87040; 87086; 87186; 88300; 93005; 94799; 99284; C1766; C1769; C2617; J1100; J1956; J2003; J2185; J2405; J7030; J7050

== ENCOUNTER → 2024-12-26 | Day surgery (SDC) | payer MEDICARE ==
[2024-12-21 15:50] LABS: BASOPHILS # (AUTO) 0.1 (0.0-0.1); BASOPHILS % 0.9 % (0.0-1.0); EOSINOPHILS # (AUTO) 0.2 (0.0-0.4); HEMATOCRIT 39.4 % (38.2-49.6); HEMOGLOBIN 12.9 g/dL (14.0-18.0); LYMPHOCYTES # (AUTO) 1.6 (1.0-3.2); MEAN CORPUSCULAR HEMOGLOBIN 29.6 pg (28-32); MEAN CORPUSCULAR HGB CONC 32.7 g/dL (31-35); MEAN CORPUSCULAR VOLUME 90.4 fL (81-99); MONOCYTES # (AUTO) 0.5 (0.2-0.8); MONOCYTES % 9.1 % (4.4-11.3); NEUTROPHILS # (AUTO) 3.1 (2.1-6.9); NEUTROPHILS % 57.6 % (38.7-80.0); PLATELET COUNT 199 x10e3/uL (140-360); RED BLOOD COUNT 4.36 x10e6/uL (4.3-5.7); RED CELL DISTRIBUTION WIDTH 13.6 % (11.7-14.4); WHITE BLOOD COUNT 5.41 x10e3/uL (4.8-10.8)
[2024-12-21 16:04] LABS: ALBUMIN 3.8 g/dL (3.5-5.0); ALBUMIN/GLOBULIN RATIO 1.1 (0.8-2.0); ANION GAP 14.4 mmol/L (8-16); BILIRUBIN,TOTAL 0.7 mg/dL (0.2-1.2); CALCIUM 9.8 mg/dL (8.4-10.2); CREATININE, SERUM 0.99 mg/dL (0.72-1.25); TOTAL PROTEIN 7.3 g/dL (6.5-8.1); URIC ACID 4.2 mg/dL (4.8-8.0)
[2024-12-21 16:08] LABS: POTASSIUM 3.4 mmol/L (3.5-5.1)
[~2024-12-26] MED LIST changes: +ACETAMINOPHEN 1000 MG/100 ML 100 ML IV ONE; +DEXAMETHASONE SOD PHOS INJ 4 MG/ML SDV ONE; +FENTANYL CITRATE/PF 100MCG/2 ML INJ ONE; +GENTAMICIN 80MG/NS 100 ML 200 ML IV ONE; +LACTATED RINGER'S 1,000 ML ONE; +LEVOFLOXACIN500 MG PO; +LIDOCAINE HCL 2% LOCAL INJ 5 ML SDV VIAL INJ ONE; +MEROPENEM 1 GM VIAL ONE; +MIDAZOLAM HCL 2 MG/2 ML VIAL ONE; +MOUNJARO5 MG/0.5 M SQ; +ONDANSETRON HCL INJ 2MG/ML 2ML 2 MG/ML VIAL ONE; +PROPOFOL IV EMULSION 10 MG/ML 20 ML VIAL ONE; +SEVOFLURANE INHAL SOLN 250 ML PEN BTL ONE
[2024-12-26 15:24] VITALS: TEMP 97.3
[2024-12-26] MEDS: PHENAZOPYRIDINE HCL 100 MG TAB ONE (15:35)
[2024-12-26 16:20] VITALS: BP 145/84; PULSE 62; RESP 15; O2SAT 98
== END | disposition home or self-care (01) ==
LOC: OR 12:14
PROVIDERS: ATTEND Urology
DX: N20.0 Calculus of kidney (principal); N13.30 Unspecified hydronephrosis; Z46.6 Encounter for fitting and adjustment of urinary device; N39.0 Urinary tract infection, site not specified; N40.0 Benign prostatic hyperplasia without lower urinary tract symptoms; Z98.890 Other specified postprocedural states; N32.89 Other specified disorders of bladder; G47.33 Obstructive sleep apnea (adult) (pediatric); I25.10 Atherosclerotic heart disease of native coronary artery without angina pectoris; I10 Essential (primary) hypertension; E78.5 Hyperlipidemia, unspecified; Z88.1 Allergy status to other antibiotic agents; Z01.812 Encounter for preprocedural laboratory examination; Z01.818 Encounter for other preprocedural examination; Z79.02 Long term (current) use of antithrombotics/antiplatelets; Z79.82 Long term (current) use of aspirin; Z79.85 Long-term (current) use of injectable non-insulin antidiabetic drugs; Z79.899 Other long term (current) drug therapy; Z95.1 Presence of aortocoronary bypass graft
CPT/HCPCS: 36415; 52356; 74018; 74420 ×2; 80053; 84550; 85025; 87086; C1766; C1769; C2617; J0131; J1100; J1580; J2003; J2185; J2405; J2704; J3010; J7121; J2250

== ENCOUNTER → 2025-01-23 | Day surgery (SDC) | payer MEDICARE ==
[2025-01-21 16:35] LABS: BASOPHILS # (AUTO) 0.1 (0.0-0.1); BASOPHILS % 0.9 % (0.0-1.0); EOSINOPHILS # (AUTO) 0.3 (0.0-0.4); EOSINOPHILS % 4.1 % (0.0-6.0); HEMATOCRIT 40.2 % (38.2-49.6); HEMOGLOBIN 13.7 g/dL (14.0-18.0); LYMPHOCYTES # (AUTO) 1.5 (1.0-3.2); LYMPHOCYTES % 22.1 % (18.0-39.1); MEAN CORPUSCULAR HEMOGLOBIN 29.5 pg (28-32); MEAN CORPUSCULAR HGB CONC 34.1 g/dL (31-35); MEAN CORPUSCULAR VOLUME 86.5 fL (81-99); MONOCYTES # (AUTO) 0.6 (0.2-0.8); MONOCYTES % 9.2 % (4.4-11.3); NEUTROPHILS # (AUTO) 4.3 (2.1-6.9); NEUTROPHILS % 63.1 % (38.7-80.0); PLATELET COUNT 191 x10e3/uL (140-360); RED BLOOD COUNT 4.65 x10e6/uL (4.3-5.7); RED CELL DISTRIBUTION WIDTH 12.8 % (11.7-14.4); WHITE BLOOD COUNT 6.75 x10e3/uL (4.8-10.8)
[2025-01-21 16:43] LABS: ANION GAP 18.6 mmol/L (8-16); CALCIUM 10.1 mg/dL (8.4-10.2); CREATININE, SERUM 1.18 mg/dL (0.72-1.25); POTASSIUM 3.6 mmol/L (3.5-5.1); URIC ACID 4.9 mg/dL (4.8-8.0)
[~2025-01-23] MED LIST changes: -GENTAMICIN 80MG/NS 100 ML 200 ML IV ONE; -LACTATED RINGER'S 1,000 ML ONE; -MEROPENEM 1 GM VIAL ONE; -MIDAZOLAM HCL 2 MG/2 ML VIAL ONE
[2025-01-23] MEDS: MEROPENEM 1 GM VIAL ONE (06:15)
[2025-01-23] MEDS: SODIUM CHLORIDE 0.9% 1000ML 1,000 ML ONE (06:15)
[2025-01-23] MEDS: GENTAMICIN 80MG/NS 100 ML 200 ML IV ONE (06:16)
[2025-01-23 10:10] VITALS: BP 136/79; PULSE 62; RESP 16; O2SAT 96
== END | disposition home or self-care (01) ==
LOC: OR 05:09
PROVIDERS: ATTEND Urology
DX: N20.0 Calculus of kidney (principal); Z46.6 Encounter for fitting and adjustment of urinary device; N40.1 Benign prostatic hyperplasia with lower urinary tract symptoms; N13.8 Other obstructive and reflux uropathy; N32.89 Other specified disorders of bladder; N39.0 Urinary tract infection, site not specified; G47.33 Obstructive sleep apnea (adult) (pediatric); I10 Essential (primary) hypertension; I25.10 Atherosclerotic heart disease of native coronary artery without angina pectoris; E78.5 Hyperlipidemia, unspecified; E66.9 Obesity, unspecified; Z01.810 Encounter for preprocedural cardiovascular examination; Z01.812 Encounter for preprocedural laboratory examination; Z01.818 Encounter for other preprocedural examination; Z79.02 Long term (current) use of antithrombotics/antiplatelets; Z79.82 Long term (current) use of aspirin; Z79.85 Long-term (current) use of injectable non-insulin antidiabetic drugs; Z79.899 Other long term (current) drug therapy; Z68.35 Body mass index [BMI] 35.0-35.9, adult
CPT/HCPCS: 36415; 52332; 52352; 74018; 74420; 80048; 84550; 85025; 87086; 88300; 93005; C1766; C1769; C2617; J0131; J1100; J1580; J2003; J2185; J2405; J2704; J3010; J7030

== ENCOUNTER → 2025-02-01 | Outpatient (REF) | payer MEDICARE ==
[~2025-02-01] MED LIST changes: -ACETAMINOPHEN 1000 MG/100 ML 100 ML IV ONE; -DEXAMETHASONE SOD PHOS INJ 4 MG/ML SDV ONE; -FENTANYL CITRATE/PF 100MCG/2 ML INJ ONE; -LIDOCAINE HCL 2% LOCAL INJ 5 ML SDV VIAL INJ ONE; -ONDANSETRON HCL INJ 2MG/ML 2ML 2 MG/ML VIAL ONE; -PROPOFOL IV EMULSION 10 MG/ML 20 ML VIAL ONE; -SEVOFLURANE INHAL SOLN 250 ML PEN BTL ONE
== END ==
LOC: MRI 09:05
PROVIDERS: ATTEND Family Medicine
DX: M25.511 Pain in right shoulder (principal); M75.111 Incomplete rotator cuff tear or rupture of right shoulder, not specified as traumatic

== ENCOUNTER → 2025-03-01 | Day surgery (SDC) | payer MEDICARE ==
[2025-02-26 15:37] LABS: BASOPHILS % 0.6 % (0.0-1.0); EOSINOPHILS % 0.6 % (0.0-6.0); LYMPHOCYTES % 23.0 % (18.0-39.1); MONOCYTES % 9.3 % (4.4-11.3); NEUTROPHILS % 66.4 % (38.7-80.0); RED CELL DISTRIBUTION WIDTH 13.0 % (11.7-14.4)
[2025-02-26 16:02] LABS: EST GLOMERULAR FILTRATION RATE 72.0 ML/MIN (>=60)
[~2025-03-01] MED LIST changes: +ACETAMINOPHEN 1000 MG/100 ML 100 ML IV ONE; +AZO CRANBERRY250 MG PO; +DEXAMETHASONE SOD PHOS INJ 4 MG/ML SDV ONE; +FENTANYL CITRATE/PF 100MCG/2 ML INJ ONE; +LIDOCAINE HCL 2% LOCAL INJ 5 ML SDV VIAL INJ ONE; +ONDANSETRON HCL INJ 2MG/ML 2ML 2 MG/ML VIAL ONE; +PROPOFOL IV EMULSION 10 MG/ML 20 ML VIAL ONE; +SEVOFLURANE INHAL SOLN 250 ML PEN BTL ONE
[2025-03-01] MEDS: GENTAMICIN 80MG/NS 100 ML 200 ML IV ONE (08:47)
[2025-03-01] MEDS: SODIUM CHLORIDE 0.9% 1000ML 1,000 ML ONE (08:47)
[2025-03-01 10:36] VITALS: TEMP 97.7
[2025-03-01] MEDS: PHENAZOPYRIDINE HCL 100 MG TAB ONE (10:53)
[2025-03-01 11:30] VITALS: BP 133/75; PULSE 66; RESP 15; O2SAT 98
== END | disposition home or self-care (01) ==
LOC: OR 08:14
PROVIDERS: ATTEND Urology
DX: N20.0 Calculus of kidney (principal); N13.30 Unspecified hydronephrosis; Z46.6 Encounter for fitting and adjustment of urinary device; N32.89 Other specified disorders of bladder; G47.33 Obstructive sleep apnea (adult) (pediatric); I25.810 Atherosclerosis of coronary artery bypass graft(s) without angina pectoris; I10 Essential (primary) hypertension; E78.5 Hyperlipidemia, unspecified; Z88.1 Allergy status to other antibiotic agents; Z01.812 Encounter for preprocedural laboratory examination; Z79.02 Long term (current) use of antithrombotics/antiplatelets; Z79.82 Long term (current) use of aspirin; Z79.85 Long-term (current) use of injectable non-insulin antidiabetic drugs; Z79.899 Other long term (current) drug therapy; Z95.5 Presence of coronary angioplasty implant and graft; Z95.1 Presence of aortocoronary bypass graft
CPT/HCPCS: 36415; 52332; 52352; 74420; 80048; 84550; 85025; 87086; 88300; C1766; C1769; C2617; J0131; J1100; J1580; J2003; J2405; J2704; J3010; J7030

== ENCOUNTER → 2025-03-30 | Day surgery (SDC) | payer BC, MEDICARE ==
[2025-03-27 16:14] LABS: BASOPHILS % 0.5 % (0.0-1.0); EOSINOPHILS % 1.1 % (0.0-6.0); LYMPHOCYTES % 26.2 % (18.0-39.1); MONOCYTES % 9.3 % (4.4-11.3); NEUTROPHILS % 62.6 % (38.7-80.0); RED CELL DISTRIBUTION WIDTH 13.3 % (11.7-14.4)
[2025-03-27 16:46] LABS: EST GLOMERULAR FILTRATION RATE 66.0 ML/MIN (>=60)
[~2025-03-30] MED LIST changes: -ACETAMINOPHEN 1000 MG/100 ML 100 ML IV ONE; -DEXAMETHASONE SOD PHOS INJ 4 MG/ML SDV ONE; +MIDAZOLAM HCL 2 MG/2 ML VIAL ONE; -SEVOFLURANE INHAL SOLN 250 ML PEN BTL ONE
[2025-03-30] MEDS: MEROPENEM 1 GM VIAL ONE (06:48)
[2025-03-30] MEDS: LACTATED RINGER'S 1,000 ML ONE (06:53)
[2025-03-30] MEDS: GENTAMICIN 80MG/NS 100 ML 200 ML IV ONE (07:01)
[2025-03-30] MEDS: PHENAZOPYRIDINE HCL 100 MG TAB ONE (08:38)
[2025-03-30 09:05] VITALS: BP 130/79; PULSE 60; RESP 16; O2SAT 98
== END | disposition home or self-care (01) ==
LOC: OR 05:52
PROVIDERS: ATTEND Urology
DX: N20.0 Calculus of kidney (principal); Z46.6 Encounter for fitting and adjustment of urinary device; N28.89 Other specified disorders of kidney and ureter; N13.8 Other obstructive and reflux uropathy; G47.33 Obstructive sleep apnea (adult) (pediatric); I10 Essential (primary) hypertension; Z88.1 Allergy status to other antibiotic agents; Z01.812 Encounter for preprocedural laboratory examination; Z01.818 Encounter for other preprocedural examination; Z79.02 Long term (current) use of antithrombotics/antiplatelets; Z79.82 Long term (current) use of aspirin; Z79.85 Long-term (current) use of injectable non-insulin antidiabetic drugs; Z79.899 Other long term (current) drug therapy; Z87.440 Personal history of urinary (tract) infections
CPT/HCPCS: 36415; 52352; 74018; 74420; 80048; 84550; 85025; 87086; 88300; C1766; C1769; J1580; J2003; J2185; J2250; J2405; J2704; J3010; J7121